=== PATIENT | male | born 1965 | race Caucasian/White ===

== ENCOUNTER 2017-08-07 04:50 | Inpatient (IN) | payer BC, OTHER ==
[2017-08-07] VITALS (9 sets, daily range): BP systolic 88–180; BP diastolic 64–136; PULSE 102–134; TEMP 36.3–37.4; O2SAT 90–94; Ht 165.1 cm; Wt 58.0 kg
[~2017-08-07] VITALS: Ht 165.1 cm; Wt 58.0 kg
[~2017-08-07 04:50] MED LIST: ASPEC81 PO; FLV1 PO; LOSA25TA18 PO; LPR25 PO; MULT-506 PO; PRLSR20 PO; SERT50TA PO; THM100 PO
--- NOTE | 2017-08-07 05:23 | EMERGENCY ROOM VISIT NOTE ---
History Report prepared by Francisco: Victor M Pemberton Under the Supervision of: Dr. Charity Blair D.O. First contact with patient: 04:53 Chief Complaint: ABDOMINAL PAIN Stated Complaint: ABDOMINAL PAIN History of Present Illness The patient is a 52 year old male who presents to the Emergency Room with concerns over worsening weakness and confusion that began yesterday, one day prior to arrival. Per the patient's she became concerned this morning when she realized that the patient was not able to walk, or get himself off of the toilet. He was confused this morning as well, in addition to experiencing a fall yesterday. The patient has a history of alcoholism and the patient's notes that he drinks at least a 12 pack of alcohol (beer) every day. He has had alcoholic seizures in the past, and the is concerned that one of these episodes could occur again. The patient vomited today, but the notes that the patient vomits every day at baseline. He has detoxed here in the hospital in the past, and has tried a rehabilitation program. He is willing to detox here again today. The patient is also complaining of pain in his abdomen and throat. Source of History: patient, spouse/significant other Onset: Yesterday Position: other (Global) Quality: other (Weakness ) Timing: worsening Associated Symptoms: + vomiting, + abdominal pain Review of Systems See HPI for pertinent positives & negatives. A total of 10 systems reviewed and were otherwise negative. Past Medical & Surgical Medical Problems: (1) Anxiety (2) Nunez esophagus (3) History of cardiomyopathy (4) HTN (hypertension) (5) Osteoarthritis Surgical Problems: (1) H/O endoscopy (2) [place] teeth removed Social History Problems: (1) Alcohol use Family History FH: cancer Social History Smoking Status: Current Every Day Smoker Alcohol Use: other Drug Use: none Marital Status: Housing Status: lives with family Occupation Status: employed Current/Historical Medications No Active Prescriptions or Reported Meds Allergies Coded Allergies: No Known Allergies (Unverified , 08/07/17) Physical Exam Vital Signs Date Time Temp Pulse Resp B/P (MAP) Pulse Ox O2 Delivery O2 Flow Rate FiO2 08/07/17 06:31 119 16 135/97 94 Room Air 08/07/17 05:30 119 18 155/104 93 Room Air 08/07/17 04:58 37.1 128 20 155/100 95 Room Air 08/07/17 04:54 133 Physical Exam General: Patient is slightly confused and smells of alcohol. HEENT: Head - normocephalic and atraumatic. Pupils are equal, round, and reactive to light. Scleral icterus, lateral nystagmus is present. Nose - moist nasal mucosa without discharge. Mouth - moist buccal mucosa. Oropharynx is nonerythematous and there is no tonsillar exudate or edema noted. Neck: Supple; no JVD, nuchal rigidity, cervical lymphadenopathy. Heart: Regular rate and rhythm. There is a normal S1 and S2 with no murmurs, clicks, or gallops appreciated. Lungs: Clear to auscultation bilaterally with no wheezes, rales, or rhonchi. Abdomen: Soft, with epigastric pain to palpation, nondistended, with good bowel sounds. There are no palpable pulsatile masses or hepatosplenomegaly. There is a contusion in the epigastrium. There is no guarding, rigidity, or rebound noted. Extremities: There is a contusion over the left arm. No evidence of cyanosis, clubbing, or edema. There are easily palpable peripheral pulses. Skin: dry and flaking. Petechiae over the right arm. Neuro:The patient is confused to place and time. Moving all four extremities. Muscle strength is 5/5 in all 4 extremities. Medical Decision & Procedures Laboratory Results 08/07/17 05:27 Red Blood Count 4.87, Mean Corpuscular Volume 91.8, Mean Corpuscular Hemoglobin 33.3, Mean Corpuscular Hemoglobin Concent 36.2, Mean Platelet Volume 11.2, Neutrophils (%) (Auto) 79.7, Lymphocytes (%) (Auto) 7.8, Monocytes (%) (Auto) 11.7, Eosinophils (%) (Auto) 0.0, Basophils (%) (Auto) 0.4, Neutrophils # (Auto ) 3.80, Lymphocytes # (Auto) 0.37, Monocytes # (Auto) 0.56, Eosinophils # (Auto ) 0.00, Basophils # (Auto) 0.02 08/07/17 04:38 Test 08/07/17 04:38 08/07/17 05:27 Anion Gap 25.0 mmol/L (3-11) Est Creatinine Clear Calc Drug Dose 84.7 ml/min Estimated GFR () 116.4 Estimated GFR (Non- 100.4 BUN/Creatinine Ratio 4.9 (10-20) Calcium Level 8.5 mg/dl (8.5-10.1) White Blood Count 4.77 K/uL (4.8-10.8) Red Blood Count 4.87 M/uL (4.7-6.1) Hemoglobin 16.2 g/dL (14.0-18.0) Hematocrit 44.7 % (42-52) Mean Corpuscular Volume 91.8 fL (80-100) Mean Corpuscular Hemoglobin 33.3 pg (25-34) Mean Corpuscular Hemoglobin Concent 36.2 g/dl (32-36) Platelet Count 51 K/uL (130-400) Mean Platelet Volume 11.2 fL (7.4-10.4) Neutrophils (%) (Auto) 79.7 % Lymphocytes (%) (Auto) 7.8 % Monocytes (%) (Auto) 11.7 % Eosinophils (%) (Auto) 0.0 % Basophils (%) (Auto) 0.4 % Neutrophils # (Auto) 3.80 K/uL (1.4-6.5) Lymphocytes # (Auto) 0.37 K/uL (1.2-3.4) Monocytes # (Auto) 0.56 K/uL (0.11-0.59) Eosinophils # (Auto) 0.00 K/uL (0-0.5) Basophils # (Auto) 0.02 K/uL (0-0.2) RDW Standard Deviation 40.9 fL (36.4-46.3) RDW Coefficient of Variation 12.2 % (11.5-14.5) Immature Granulocyte % (Auto) 0.4 % Immature Granulocyte # (Auto) 0.02 K/uL (0.00-0.02) Platelet Estimate DECREASED Prothrombin Time 12.2 SECONDS (9.0-12.0) Prothromb Time International Ratio 1.1 (0.9-1.1) Activated Partial Thromboplast Time 27.5 SECONDS (21.0-31.0) Partial Thromboplastin Ratio 1.1 Magnesium Level 1.8 mg/dl (1.8-2.4) Total Bilirubin 2.4 mg/dl (0.2-1) Direct Bilirubin 1.0 mg/dl (0-0.2) Aspartate Amino Transf (AST/SGOT) 236 U/L (15-37) Alanine Aminotransferase (ALT/SGPT) 153 U/L (12-78) Alkaline Phosphatase 108 U/L (45-117) Ammonia 39.0 umol/L (11-32) Troponin I < 0.015 ng/ml (0-0.045) Total Protein 7.4 gm/dl (6.4-8.2) Albumin 3.8 gm/dl (3.4-5.0) Lipase 478 U/L (73-393) Thyroid Stimulating Hormone (TSH) 1.260 uIu/ml (0.300-4.500) Ethyl Alcohol mg/dL 32.0 mg/dl (0-3) Laboratory results per my review. Medications Administered Medications (Trade) Dose Ordered Sig/Akanksha Route Start Time Stop Time Status Last Admin Dose Admin Multivitamins 10 ml/Thiamine HCl 100 mg/Folic Acid 1 mg/Sodium Chloride 1,011.2 ml @ 100 mls/ hr Q10H7M ONCE IV 08/07/17 06:30 08/07/17 16:36 08/07/17 06:45 100 MLS/HR Potassium Chloride 10 meq/ Prmx 100 ml @ 100 mls/hr Q1H IV 08/07/17 06:45 08/07/17 08:44 08/07/17 06:42 100 MLS/HR Procedure Medications Ordered: Multivitamins, Potassium Chloride. ECG Indication: weakness Rate (beats per minute): 133 Rhythm: sinus tachycardia Findings: no acute ischemic change, no ectopy, other (poor baseline ) ED Course 0505: Past medical records reviewed. The patient was evaluated in room A10. A complete history and physical exam was performed. An IV lock was initiated and labs are drones above. A twelve-lead EKG was obtained as described above. 0628: I reevaluated the patient at this time. I went over all of his laboratory results with him. He is still agreeable to stay for detox. 0630: Ordered a banana bag 0631: I discussed the case with Dr. Willis Steve Hospitalist at this time. He will evaluate the patient for further treatment. 0645: Ordered Potassium Chloride 100 mL @ 100 mL/hr IV. Medical Decision The patient is a 52 year old male who presents to the Emergency Department for worsening weakness. Differential diagnosis includes; alcoholic encephalopathy, dehydration, alcohol intoxication, and alcoholic gastritis. Laboratory studies were reviewed and showed; White count of 4.7, stable hemoglobin and hematocrit, platelet count of 51, normal coagulations, ammonia of 39, lipase of 478, TSH is normal, renal function is normal, glucose is 136, magnesium is 1.8, LFTs are all elevated, sodium is 123, potassium is 2.8, alcohol is 32. This is a 52-year-old male patient who is an alcoholic who presents to the emergency department with extreme weakness according to his . She explains that he has not left the house in the past 2 months. He drinks daily and vomits daily. He now is barely able to get around the house and was unable to get off the toilet last night. The patient has significant hyponatremia, hypokalemia, and thrombocytopenia. The patient is confused at times. He is currently receiving a banana bag and potassium. I've discussed the case with the [facility] Hospitalist and they will evaluate for further management. Medication Reconcilliation Current Medication List: was personally reviewed by me Consults Time Called: 06 Consulting Physician: Dr. Willis Agosto Returned Call: 0631 I discussed the case with Dr. Willis Agosto at this time. He will evaluate the patient for further treatment. Impression Primary Impression: Hyponatremia Additional Impressions: Thrombocytopenia Hypokalemia Alcohol abuse Scribe Attestation The scribe's documentation has been prepared under my direction and personally reviewed by me in its entirety. I confirm that the note above accurately reflects all work, treatment, procedures, and medical decision making performed by me. Departure Information Dispostion Being Evaluated By Hospitalist Prescriptions No Active Prescriptions or Reported Meds Referrals Abhinav Serrano D.O. (PCP) Patient Instructions My [facility] Problem Qualifiers
[2017-08-07 06:05] LABS: INR 1.1 (0.9-1.1); PARTIAL THROMBOPLASTIN RATIO 1.1; PROTHROMBIN TIME (PATIENT) 12.2 SECONDS (9.0-12.0)
[2017-08-07 06:16] LABS: HEMATOCRIT 44.7 % (42-52); MEAN CELL VOLUME 91.8 fL (80-100); MEAN CORPUSCULAR HEMOGLOBIN 33.3 pg (25-34); MEAN CORPUSCULAR HGB CONC 36.2 g/dl (32-36); MEAN PLATELET VOLUME 11.2 fL (7.4-10.4); PLATELET COUNT 51 K/uL (130-400); RED BLOOD COUNT 4.87 M/uL (4.7-6.1); WHITE BLOOD COUNT 4.77 K/uL (4.8-10.8)
[2017-08-07 06:17] LABS: BASO % 0.4 %; BASO ABS # 0.02 K/uL (0-0.2); COMPLETE YES; IG% 0.4 %; LYMPH % 7.8 %; LYMPH ABS # 0.37 K/uL (1.2-3.4); MONO % 11.7 %; NEUT % 79.7 %; PLT ESTIMATE DECREASED
[2017-08-07 06:21] LABS: BUN/CREATININE RATIO 4.9 (10-20); CALCIUM 8.5 mg/dl (8.5-10.1); CREATININE 0.86 mg/dl (0.60-1.40); POTASSIUM 2.8 mmol/L (3.5-5.1)
[2017-08-07] MEDS ORDERED: POTASSIUM CHLR 20 MEQ / WTR 20 MEQ in PREMIXED WATER 100 ML IV STA (06:25)
[2017-08-07 06:27] LABS: ALKALINE PHOSPHATASE 108 U/L (45-117); ALT/SGPT 153 U/L (12-78); AST/SGOT 236 U/L (15-37); MAGNESIUM 1.8 mg/dl (1.8-2.4)
[2017-08-07] MEDS ORDERED: MULTI-VITAMIN INFUSION INJ 10 ML, THIAMINE HCL INJ 100 MG, FoLIC ACID INJ 1 MG in SODIU... IV ONE (06:30)
[2017-08-07] MEDS: POTASSIUM CHLR 10MEQ / WTR IV SCH ×2 (06:42→08:23)
[2017-08-07] MEDS ORDERED: LORAZEPAM 2 MG/ML 1 ML VIAL IV PRN ×2 (06:45→19:30)
[2017-08-07] MEDS ORDERED: GABAPENTIN 600 MG TAB PO SCH (06:45)
[2017-08-07] MEDS ORDERED: POTASSIUM CHLORIDE 10 MEQ TABCR PO STA (06:49)
[2017-08-07] MEDS ORDERED: ONDANSETRON INJ 2 MG/ML 2 ML VIAL IV STA (06:54)
[2017-08-07] MEDS ORDERED: ONDANSETRON INJ 2 MG/ML 2 ML VIAL IV PRN (07:00)
--- NOTE | 2017-08-07 07:15 | History and Physical ---
History & Physical Date & Time of Service: Aug 07, 2017 at 06:40 Chief Complaint: Abdominal Pain Primary Care Physician: Abhinav Serrano D.O. History of Present Illness Source: patient, family, clinic records, hospital records This is a 52 year old male with a PMH of HTN, anxiety, Nunez's esophagus and a hx. of alcohol abuse, alcoholism, presents after being brought in by his for excessive alcohol use and weakness. Patient has been drinking at least a 12 pack daily as per . He has been more depressed lately due to the loss of his father. One day prior to arrival, he was very weak and needed help getting up from the toilet so he called his . A few hours later, he fell and needed help getting up. He has been slightly confused. As per , he stopped taking his blood pressure medications (stopped all of his meds). During exam, patient does not recall what brought him to the ER; he denies pain. +nauseous during exam and had a vomiting episode earlier in the ED. No fevers/chills/illness noted. Past Medical/Surgical History Medical Problems: (1) Anxiety Status: Chronic (2) Nunez esophagus Status: Chronic (3) History of cardiomyopathy Status: Chronic (4) HTN (hypertension) Status: Chronic (5) Osteoarthritis Status: Chronic Surgical Problems: (1) H/O endoscopy Status: Chronic (2) [place] teeth removed Status: Chronic Social History Problems: (1) Alcohol use Status: Chronic Family History FH: cancer Social History Smoking Status: Current Every Day Smoker Drug Use: none Marital Status: Housing status: lives with family Occupational Status: employed Immunizations History of Influenza Vaccine: Yes History of Tetanus Vaccine?: Unknown History of Pneumococcal: No History of Hepatitis B Vaccine: Unknown Multi-Drug Resistant Organisms History of MDRO: No Allergies Coded Allergies: No Known Allergies (Unverified , 08/07/17) Home Medications No Active Prescriptions or Reported Meds Review of Systems Difficult to obtain due to patient's mental status Denies any pain, denies chest pain/shortness of breath +nausea, +vomiting, +weakness Constitutional: + weakness Respiratory: No shortness of breath Cardiovascular: No chest pain Abdomen: + nausea, + vomiting, No pain, No diarrhea Physical Exam Vital Signs Date Time Temp Pulse Resp B/P (MAP) Pulse Ox O2 Delivery O2 Flow Rate FiO2 08/07/17 06:31 119 16 135/97 94 Room Air 08/07/17 05:30 119 18 155/104 93 Room Air 08/07/17 04:58 37.1 128 20 155/100 95 Room Air 08/07/17 04:54 133 General Appearance: + pertinent finding (+confused, lethargic, weak) Head: normocephalic, atraumatic Respiratory/Chest: chest non-tender, lungs clear, normal breath sounds, no respiratory distress, no accessory muscle use Cardiovascular: no edema, no gallop, no JVD, no murmur, normal peripheral pulses, + tachycardia Abdomen/GI: normal bowel sounds, soft, + tenderness (epigastric pain) Extremities/Musculoskelatal: no calf tenderness, normal capillary refill, no pedal edema Neurologic/Psych: + pertinent finding (+weakness, tremulousness, disoriented, confused, does not recall what happened) Diagnostics Laboratory Results Results Past 24 Hours Test 08/07/17 04:38 08/07/17 05:27 Range/Units Sodium Level 123 136-145 mmol/L Potassium Level 2.8 3.5-5.1 mmol/L Chloride Level 85 98-107 mmol/L Carbon Dioxide Level 13 21-32 mmol/L Anion Gap 25.0 3-11 mmol/L Blood Urea Nitrogen 4 7-18 mg/dl Creatinine 0.86 0.60-1.40 mg/dl Est Creatinine Clear Calc Drug Dose 84.7 ml/min Estimated GFR () 116.4 Estimated GFR (Non- 100.4 BUN/Creatinine Ratio 4.9 10-20 Random Glucose 136 70-99 mg/dl Calcium Level 8.5 8.5-10.1 mg/dl White Blood Count 4.77 4.8-10.8 K/uL Red Blood Count 4.87 4.7-6.1 M/uL Hemoglobin 16.2 14.0-18.0 g/dL Hematocrit 44.7 42-52 % Mean Corpuscular Volume 91.8 80-100 fL Mean Corpuscular Hemoglobin 33.3 25-34 pg Mean Corpuscular Hemoglobin Concent 36.2 32-36 g/dl Platelet Count 51 130-400 K/uL Mean Platelet Volume 11.2 7.4-10.4 fL Neutrophils (%) (Auto) 79.7 % Lymphocytes (%) (Auto) 7.8 % Monocytes (%) (Auto) 11.7 % Eosinophils (%) (Auto) 0.0 % Basophils (%) (Auto) 0.4 % Neutrophils # (Auto) 3.80 1.4-6.5 K/uL Lymphocytes # (Auto) 0.37 1.2-3.4 K/uL Monocytes # (Auto) 0.56 0.11-0.59 K/uL Eosinophils # (Auto) 0.00 0-0.5 K/uL Basophils # (Auto) 0.02 0-0.2 K/uL RDW Standard Deviation 40.9 36.4-46.3 fL RDW Coefficient of Variation 12.2 11.5-14.5 % Immature Granulocyte % (Auto) 0.4 % Immature Granulocyte # (Auto) 0.02 0.00-0.02 K/uL Platelet Estimate DECREASED Prothrombin Time 12.2 9.0-12.0 SECONDS Prothromb Time International Ratio 1.1 0.9-1.1 Activated Partial Thromboplast Time 27.5 21.0-31.0 SECONDS Partial Thromboplastin Ratio 1.1 Magnesium Level 1.8 1.8-2.4 mg/dl Total Bilirubin 2.4 0.2-1 mg/dl Direct Bilirubin 1.0 0-0.2 mg/dl Aspartate Amino Transf (AST/SGOT) 236 15-37 U/L Alanine Aminotransferase (ALT/SGPT) 153 12-78 U/L Alkaline Phosphatase 108 45-117 U/L Ammonia 39.0 11-32 umol/L Troponin I < 0.015 0-0.045 ng/ml Total Protein 7.4 6.4-8.2 gm/dl Albumin 3.8 3.4-5.0 gm/dl Lipase 478 73-393 U/L Thyroid Stimulating Hormone (TSH) 1.260 0.300-4.500 uIu/ml Ethyl Alcohol mg/dL 32.0 0-3 mg/dl EKG Sinus tachycardia Nonspecific ST abnormality Impression Assessment and Plan This is a 52 year old male with a PMH of alcoholism, alcohol abuse, hx. of withdrawal symptoms, including DTs and seizure, anxiety, HTN, Nunez's esophagus - presents with excessive alcohol use and subsequent weakness. Alcohol Abuse patient has a history of alcohol abuse/alcoholism drinks a 12 pack of beer daily at the minimum as per more depressed lately due to loss of his dad - drinking more than usual became extremely weak, unable to ambulate or care for himself noted to have severe hyponatremia, hypokalemia, elevated LFTs and lipase, elevated ammonia, thrombocytopenia started on a banana bag gabapentin protocol for EtOH withdrawal, Ativan PRN replace potassium, replace magnesium recheck PRP at noon to monitor sodium levels monitor for DTs - he has had seizures in the past - monitor in tele for now, but ICU transfer may be needed Hyponatremia giving IVFs monitor sodium levels Depression as per , he is not in a good place and more depressed due to loss of his father consulted mental health Nunez's Esophagus started PPI HTN not taking any medications monitor BP, if elevated, start a b-jabari DVT ppx due to thrombocytopenia, no medical DVT prophylaxis, SCDs FULL CODE alcohol rehab on discharge case management consulted VTE Prophylaxis VTE Risk Assessment Done? Y/N: Yes Risk Level: Moderate
[2017-08-07] MEDS ORDERED: LORAZEPAM 2 MG/ML 1 ML VIAL IV ONE (08:45)
[2017-08-07] MEDS ORDERED: MAGNESIUM SULFATE 1GM / D5W 1 GM in PREMIXED IN D5W 100 ML IV ONE (09:00)
[2017-08-07] MEDS: PANTOprazole SOD 40 MG TAB PO SCH (09:14)
[2017-08-07] MEDS: CHLORDIAZEPOXIDE 10 MG CAP PO SCH ×2 (09:20→22:21)
[2017-08-07 09:34] LABS: ESTIMATED AVERAGE GLUCOSE 123 mg/dl; HA1C FLAG Normal (Normal)
[2017-08-07] MEDS ORDERED: GABAPENTIN 1200MG LOADING DOSE PO SCH (10:00)
[2017-08-07] MEDS: POTASSIUM CHLR 10 MEQ / WTR 10 MEQ in PREMIXED WATER 100 ML IV SCH ×2 (10:05→10:30)
[2017-08-07] MEDS: METOPROLOL TARTRATE 1 MG/ML VIAL IV PRN ×2 (10:35→20:05)
--- NOTE | 2017-08-07 12:07 | Psychiatric History & Physical ---
History Date of Service Aug 07, 2017. Identifying Data Eddie Rudd is a 52-year-old male who lives in [place], has a history of alcohol dependence with multiple admissions for alcohol withdrawal seizures, and is admitted for detox. Psychiatry was consulted for depression. Chief Complaint "I don't know". History of Present Illness According to records, the patient was admitted this morning after he presented to the emergency room with weakness and confusion in the context of alcohol withdrawal. His was concerned as he became unable to walk or get himself off the toilet, and had a fall yesterday. He has been drinking at least a 12 pack of beer daily, and has a history of alcohol withdrawal seizures. His stated he has been vomiting daily, and has been drinking more and isolating at home for the past 2 months. His father unexpectedly in January 2017. Laboratory data revealed hyponatremia, hypokalemia, and thrombocytopenia. On my assessment, the patient is a very limited historian, often taking a long time to answer questions, or answering with unrelated information. He is sarcastic answers at times, stating that we are in [place] and that it is 1941. He does not answer questions about mood when they are asked, and says he was not aware a psychiatric consult was requested, and does not want us involved in his treatment. He denies thoughts of harming himself or anyone else. He was advised of our role in assisting with treatment if there is a comorbid mood disorder, and agreed to notify staff if he changes his mind and is agreeing to see someone. Past Psychiatric History Current OP Treatment: no current treatment Prior OP Treatment: no prior treatment Past Medical/Surgical History (1) Alcohol abuse (2) Nunez esophagus (3) HTN (hypertension) (4) Osteoarthritis Allergies Allergies: Coded Allergies: No Known Allergies (Unverified , 08/07/17) Home Medications No Active Prescriptions or Reported Meds Family History FH: cancer Alcohol Use Alcohol Use In Past 12 Months: Yes (drinks daily, at least a 12 pack of beer. History of DTs and withdrawal seizures.) Smoking Use Smoking Status: Current Every Day Smoker Personal History Lives in: [place] with Psychological Trauma History: Significant Loss (father January 2017) Review of Systems Patient refused to participate in ROS Examination Physical Examination A physical exam was performed [in the ER] [on the medical floor] prior to admission to the unit by [ ]. I accept that physical as correct/medical clearance for the inpatient physical exam. Vital Signs Vital Signs Past 12 Hours Date Time Temp Pulse Resp B/P (MAP) Pulse Ox O2 Delivery O2 Flow Rate FiO2 08/07/17 10:35 132 119/77 08/07/17 08:30 36.5 134 26 122/86 (98) 92 Room Air 08/07/17 07:31 159/113 08/07/17 07:20 121 23 95 08/07/17 07:01 161/117 08/07/17 07:00 36.3 126 28 180/136 94 Room Air 08/07/17 06:50 118 25 95 08/07/17 06:31 135/97 08/07/17 06:31 119 16 135/97 94 Room Air 08/07/17 06:20 125 26 95 08/07/17 06:01 157/113 08/07/17 05:50 119 25 93 08/07/17 05:31 155/104 08/07/17 05:30 119 18 155/104 93 Room Air 08/07/17 05:20 130 27 93 08/07/17 05:01 148/106 08/07/17 04:59 155/100 08/07/17 04:58 37.1 128 20 155/100 95 Room Air 08/07/17 04:54 133 08/07/17 04:52 173/124 Laboratory Results Last 24 Hours Test 08/07/17 04:38 08/07/17 05:27 08/07/17 11:50 Sodium Level 123 mmol/L Potassium Level 2.8 mmol/L Chloride Level 85 mmol/L Carbon Dioxide Level 13 mmol/L Anion Gap 25.0 mmol/L Blood Urea Nitrogen 4 mg/dl Creatinine 0.86 mg/dl Est Creatinine Clear Calc Drug Dose 84.7 ml/min Estimated GFR () 116.4 Estimated GFR (Non- 100.4 BUN/Creatinine Ratio 4.9 Random Glucose 136 mg/dl Calcium Level 8.5 mg/dl White Blood Count 4.77 K/uL Red Blood Count 4.87 M/uL Hemoglobin 16.2 g/dL Hematocrit 44.7 % Mean Corpuscular Volume 91.8 fL Mean Corpuscular Hemoglobin 33.3 pg Mean Corpuscular Hemoglobin Concent 36.2 g/dl Platelet Count 51 K/uL Mean Platelet Volume 11.2 fL Neutrophils (%) (Auto) 79.7 % Lymphocytes (%) (Auto) 7.8 % Monocytes (%) (Auto) 11.7 % Eosinophils (%) (Auto) 0.0 % Basophils (%) (Auto) 0.4 % Neutrophils # (Auto) 3.80 K/uL Lymphocytes # (Auto) 0.37 K/uL Monocytes # (Auto) 0.56 K/uL Eosinophils # (Auto) 0.00 K/uL Basophils # (Auto) 0.02 K/uL RDW Standard Deviation 40.9 fL RDW Coefficient of Variation 12.2 % Immature Granulocyte % (Auto) 0.4 % Immature Granulocyte # (Auto) 0.02 K/uL Platelet Estimate DECREASED Prothrombin Time 12.2 SECONDS Prothromb Time International Ratio 1.1 Activated Partial Thromboplast Time 27.5 SECONDS Partial Thromboplastin Ratio 1.1 Estimated Average Glucose 123 mg/dl Hemoglobin A1c 5.9 % Magnesium Level 1.8 mg/dl Total Bilirubin 2.4 mg/dl Direct Bilirubin 1.0 mg/dl Aspartate Amino Transf (AST/SGOT) 236 U/L Alanine Aminotransferase (ALT/SGPT) 153 U/L Alkaline Phosphatase 108 U/L Ammonia 39.0 umol/L Troponin I < 0.015 ng/ml Total Protein 7.4 gm/dl Albumin 3.8 gm/dl Lipase 478 U/L Thyroid Stimulating Hormone (TSH) 1.260 uIu/ml Ethyl Alcohol mg/dL 32.0 mg/dl Mental Examination Appearance: other (ill appearing, tremulous) Eye contact is: poor Motor behavior is: tremor Speech: other (minimal, delayed) Mood is: other (refused to answer) Suicidal thought are: denied Homicidal thoughts are: denied Impression / Recommendations Recommendations (1) Alcohol abuse Patient is in delirium tremens, with confusion, tremulousness, and autonomic instability. Management per primary team. He is at very high risk for withdrawal seizures given his history and heavy alcohol use. He would benefit from inpatient rehabilitation after he has completed detox here. This would give him the best chance of remaining abstinent. He is uncooperative with assessment regarding mood, and a primary mood disorder cannot be diagnosed in the context of severe alcohol withdrawal. He should be reassessed as an outpatient if he so desires after he is sobriety. CPT Code Initial Hospital Care: 46440
[2017-08-07] MEDS ORDERED: NURSING VERBAL MED ORDER ONE (12:15)
[2017-08-07] MEDS ORDERED: POTASSIUM CHLORIDE 20 MEQ TABCR PO ONE (12:15)
[2017-08-07 13:03] LABS: BUN/CREATININE RATIO 11.8 (10-20); CALCIUM 8.3 mg/dl (8.5-10.1); CREATININE 0.63 mg/dl (0.60-1.40); POTASSIUM 4.2 mmol/L (3.5-5.1)
[2017-08-07] MEDS: GABAPENTIN 600MG Q6H DOSE PO SCH ×2 (16:05→22:00)
--- NOTE | 2017-08-07 16:20 | Progress Note ---
Medicine Progress Note Date & Time of Visit: Aug 07, 2017 at 15:50. Subjective Pt was seen and examined Lying in bed with no distress One to one sitter He was very agitated this morning Now sleeping, trying to wake him up he went back to sleep Objective Last 8 Hrs Date Time Temp Pulse Resp B/P (MAP) Pulse Ox O2 Delivery O2 Flow Rate FiO2 08/07/17 15:33 37.1 106 18 114/72 (86) 92 Room Air 08/07/17 12:23 93 Room Air 08/07/17 12:19 36.8 121 20 131/69 (89) 93 08/07/17 10:35 132 119/77 08/07/17 08:30 36.5 134 26 122/86 (98) 92 Room Air Physical Exam: General- sleeping Head- atraumatic Eyes- PERRL ENT- oropharynx clear Neck- supple, no JVD Lungs- clear to auscultation Heart- regular rhythm; no murmur Abdomen- normal bowel sounds, soft Extremities-no calf tenderness Neuro-Sleeping, moving all 4 extremities mild pain stimuli Skin- warm & dry Laboratory Results: Last 24 Hours Test 08/07/17 04:38 08/07/17 05:27 08/07/17 11:50 Sodium Level 123 mmol/L 121 mmol/L Potassium Level 2.8 mmol/L 4.2 mmol/L Chloride Level 85 mmol/L 88 mmol/L Carbon Dioxide Level 13 mmol/L 22 mmol/L Anion Gap 25.0 mmol/L 12.0 mmol/L Blood Urea Nitrogen 4 mg/dl 7 mg/dl Creatinine 0.86 mg/dl 0.63 mg/dl Est Creatinine Clear Calc Drug Dose 84.7 ml/min 115.6 ml/min Estimated GFR () 116.4 132.2 Estimated GFR (Non- 100.4 114.1 BUN/Creatinine Ratio 4.9 11.8 Random Glucose 136 mg/dl 137 mg/dl Calcium Level 8.5 mg/dl 8.3 mg/dl White Blood Count 4.77 K/uL Red Blood Count 4.87 M/uL Hemoglobin 16.2 g/dL Hematocrit 44.7 % Mean Corpuscular Volume 91.8 fL Mean Corpuscular Hemoglobin 33.3 pg Mean Corpuscular Hemoglobin Concent 36.2 g/dl Platelet Count 51 K/uL Mean Platelet Volume 11.2 fL Neutrophils (%) (Auto) 79.7 % Lymphocytes (%) (Auto) 7.8 % Monocytes (%) (Auto) 11.7 % Eosinophils (%) (Auto) 0.0 % Basophils (%) (Auto) 0.4 % Neutrophils # (Auto) 3.80 K/uL Lymphocytes # (Auto) 0.37 K/uL Monocytes # (Auto) 0.56 K/uL Eosinophils # (Auto) 0.00 K/uL Basophils # (Auto) 0.02 K/uL RDW Standard Deviation 40.9 fL RDW Coefficient of Variation 12.2 % Immature Granulocyte % (Auto) 0.4 % Immature Granulocyte # (Auto) 0.02 K/uL Platelet Estimate DECREASED Prothrombin Time 12.2 SECONDS Prothromb Time International Ratio 1.1 Activated Partial Thromboplast Time 27.5 SECONDS Partial Thromboplastin Ratio 1.1 Estimated Average Glucose 123 mg/dl Hemoglobin A1c 5.9 % Magnesium Level 1.8 mg/dl Total Bilirubin 2.4 mg/dl Direct Bilirubin 1.0 mg/dl Aspartate Amino Transf (AST/SGOT) 236 U/L Alanine Aminotransferase (ALT/SGPT) 153 U/L Alkaline Phosphatase 108 U/L Ammonia 39.0 umol/L Troponin I < 0.015 ng/ml Total Protein 7.4 gm/dl Albumin 3.8 gm/dl Lipase 478 U/L Thyroid Stimulating Hormone (TSH) 1.260 uIu/ml Ethyl Alcohol mg/dL 32.0 mg/dl Assessment & Plan Alcohol Withdraw Has been drinking 12 pack of beer daily Gabapentin protocol for EtOH withdrawal, Ativan PRN Continue banana bag One to one observation Starting on Librium 10mg BID Continue monitor closely for DT No seizure activity Consider inpatient alcohol rehab Elevated Liver Enzymes Mostly related to alcohol abuse AST 256, ALT 153 Continue IVF Monitor Liver enzymes If worsening, will get an U/S of the liver Hyponatremia Na 121 Mostly related to alcohol and poor intake Continue IVF Will check BMP later Continue monitor BMP Generalized Weakness fall precaution PT/OT Depression Psych consulted was not able to cooperate Once sober, will reassess if he wants to see psych Nunez's Esophagus Continue PPI Electrolytes imbalance Mg and K replaced Continue monitor HTN BP stable Tachycardia Due to alcohol withdrawn Starting on low dose of lopressor for HR > 120 prn Continue monitor in telemetry DVT ppx due to thrombocytopenia, no medical DVT prophylaxis, SCDs FULL CODE Disposition Consider alcohol rehab on discharge Consultants: psych Current Inpatient Medications: Current Inpatient Medications Medications (Trade) Dose Ordered Sig/Akanksha Route Start Time Stop Time Status Last Admin Dose Admin Multivitamins 10 ml/Thiamine HCl 100 mg/Folic Acid 1 mg/Sodium Chloride 1,011.2 ml @ 100 mls/ hr Q10H7M ONCE IV 08/07/17 06:30 08/07/17 16:36 08/07/17 06:45 100 MLS/HR Sodium Chloride 1,000 ml @ 100 mls/hr Q10H IV 08/07/17 16:36 09/06/17 16:35 Multivitamins 10 ml/Thiamine HCl 100 mg/Folic Acid 1 mg/Sodium Chloride 1,011.2 ml @ 500 mls/ hr DAILY@0900 IV 08/08/17 09:00 09/07/17 08:59 Ondansetron HCl (Zofran Inj) 4 mg Q6H PRN IV 08/07/17 07:00 09/06/17 06:59 Pantoprazole Sodium (Protonix Tab) 40 mg QAM PO 08/07/17 09:00 09/06/17 08:59 08/07/17 09:14 40 MG Influenza Virus Vaccine Quadrival (Flucelvax Quad Vaccine) 0.5 ml ONCE ONCE IM. 08/08/17 08:00 08/08/17 08:01 Gabapentin (Neurontin Tab) 600 mg Q6H PO 08/07/17 16:00 08/07/17 22:01 Gabapentin (Neurontin Tab) 600 mg Q8H PO 08/08/17 06:00 08/08/17 22:01 Gabapentin (Neurontin Tab) 600 mg Q12H PO 08/09/17 10:00 08/09/17 22:01 Gabapentin (Neurontin Tab) 600 mg Q24H PO 08/10/17 22:00 08/10/17 22:01 Chlordiazepoxide (Librium Cap) 10 mg BID PO 08/07/17 09:00 09/06/17 08:59 08/07/17 09:20 10 MG Metoprolol Tartrate (Lopressor Iv) 2.5 mg Q6 PRN IV 08/07/17 09:30 09/06/17 09:29 08/07/17 10:35 2.5 MG
[2017-08-07] MEDS: SODIUM CHLORIDE 0.9% 1000ML 1,000 ML IV SCH (16:36)
--- NOTE | 2017-08-07 17:30 | ECHOCARDIOGRAM REPORT ---
*NOTICE TO RECEIVING LIBERTARIAN AGENCY This information is strictly Confidential and protected under [place] law. [place] law prohibits you from making any further disclosure of this information unless further disclosure is expressly permitted by the written consent of the person to whom it pertains or is authorized by law. A general authorization for the release of medical or other information is not sufficient for this purpose. Hospital accepts no responsibility if the information is made available to any other person, INCLUDING THE PATIENT. Interpretation Summary * The study was technically limited. * The study was technically difficult. * Sinus tachycardia with rate of 130 bpm was present during the echocardiogram. * -- Conclusions -- * The left ventricular systolic function is grossly normal on technically limited evaluation. * Regional wall motion cannot be assessed due to the tachycardia and technically inadequate images. * There is no significant valvular disease. Procedure Details * A complete two-dimensional transthoracic echocardiogram was performed (2D, M-mode, Doppler and color flow Doppler). * A contrast injection of Definity was performed to improve assessment of LV function. * Contrast was injected into an intravenous site in the left arm. * One vial of Definity ultrasound contrast was diluted in normal saline to a total volume of 10 ml. A total of '1' ml of solution was administered during imaging. * Lot # [id number] of Definity utilized for procedure. * Expiration date 1DEC18. * The attending nurse who injected the contrast agent was Lon Oliveira RN. Left Ventricle * The left ventricle is normal in size. * There is normal left ventricular wall thickness. * The left ventricular systolic function is grossly normal on technically limited evaluation. * Regional wall motion cannot be assessed due to the tachycardia and technically inadequate images. Right Ventricle * The right ventricle is grossly normal size. * The right ventricular systolic function is normal. Atria * The left atrial size is normal. * Right atrial size is normal. * There is no evidence of atrial septal defect, but resolution does not allow assessment for a patent foramen ovale. Mitral Valve * The mitral valve is normal. * There is no mitral valve stenosis. * There is mild mitral regurgitation. Tricuspid Valve * The tricuspid valve is normal. * There is no tricuspid stenosis. * Significant tricuspid regurgitation is absent. Aortic Valve * The aortic valve is trileaflet. * Aortic stenosis is absent. * There is no significant aortic regurgitation. Pulmonic Valve * The pulmonary valve is not well seen, but the Doppler examination is normal without significant regurgitation or stenosis. Great Vessels * The aortic root and proximal ascending aorta are normal sized. Pericardium/Pleural * There is no pericardial effusion. * There is an echodenisity in the pericardial space consistent with pericardial fat. Great Vessels * Normal inferior vena cava diameter and respiratory variation suggests normal central venous pressure. Left Ventricular Diastolic Function * Grade I diastolic dysfunction, (abnormal relaxation pattern). MMode 2D Measurements and Calculations IVSd 0.82 cm IVSs 1.2 cm LVIDd 3.1 cm LVIDs 2.4 cm LVPWd 0.85 cm LVPWs 1.3 cm IVS/LVPW 0.97 FS 22.7 % EDV(Teich) 37.2 ml ESV(Teich) 19.7 ml EF(Teich) 47.1 % EDV(cubed) 29.1 ml ESV(cubed) 13.4 ml EF(cubed) 53.8 % % IVS thick 43.6 % % LVPW thick 53.5 % LV mass(C)d 65.3 grams LV mass(C)dI 39.8 grams/m\S\2 LV mass(C)s 84.8 grams LV mass(C)sI 51.7 grams/m\S\2 SV(Teich) 17.5 ml SI(Teich) 10.7 ml/m\S\2 SV(cubed) 15.7 ml SI(cubed) 9.5 ml/m\S\2 Ao root diam 3.5 cm Ao root area 9.6 cm\S\2 ACS 1.3 cm LA dimension 2.7 cm asc Aorta Diam 3.0 cm LA/Ao 0.78 EDV(MOD-sp4) 116.3 ml ESV(MOD-sp4) 49.1 ml EF(MOD-sp4) 57.8 % EDV(MOD-sp2) 73.1 ml ESV(MOD-sp2) 38.0 ml EF(MOD-sp2) 48.1 % SV(MOD-sp4) 67.3 ml SI(MOD-sp4) 41.0 ml/m\S\2 SV(MOD-sp2) 35.1 ml SI(MOD-sp2) 21.4 ml/m\S\2 Doppler Measurements and Calculations MV E max darshan 113.7 cm/sec MV A max darshan 71.9 cm/sec MV E/A 1.6 MV P1/2t max darshan 124.0 cm/sec MV P1/2t 40.2 msec MVA(P1/2t) 5.5 cm\S\2 MV dec slope 903.9 cm/sec\S\2 MV dec time 0.09 sec PA V2 max 95.3 cm/sec PA max PG 3.7 mmHg
[2017-08-07] MEDS: METOPROLOL SUCC 25MG EXT REL TAB PO SCH (19:44)
[2017-08-07 19:49] LABS: BUN/CREATININE RATIO 16.5 (10-20); CALCIUM 7.6 mg/dl (8.5-10.1); CREATININE 0.65 mg/dl (0.60-1.40); POTASSIUM 4.1 mmol/L (3.5-5.1)
[2017-08-07] MEDS ORDERED: LORAZEPAM INJ 2 MG in SYRINGE 1 ML IV STA (19:57)
[2017-08-07] MEDS ORDERED: MAGNESIUM SULFATE 1GM / D5W 1 GM in PREMIXED IN D5W 100 ML IV STA (19:57)
[2017-08-07 21:37] LABS: MANUAL MICROSCOPIC REQUIRED? YES; URINE APPEARANCE CLEAR (CLEAR); URINE COLOR YELLOW; URINE NITRITE NEG (NEG); UROBILINOGEN NEG (NEG)
[2017-08-07 21:38] LABS: REVIEW REQ? NO; URINE BILIRUBIN 1+ (NEG)
[2017-08-07 21:48] LABS: URINE BACTERIA NEG (NEG); URINE MUCUS PRESENT (NONE PRSENT); URINE RBC 0-4 /hpf (0-4)
[2017-08-08] VITALS (10 sets, daily range): BP systolic 92–151; BP diastolic 62–106; PULSE 99–134; TEMP 36.7–37.5; O2SAT 92–97
[2017-08-08] MEDS: SODIUM CHLORIDE 0.9% 1000ML 1,000 ML IV SCH ×2 (03:07→07:46)
[2017-08-08] MEDS: METOPROLOL TARTRATE 1 MG/ML VIAL IV PRN ×2 (03:07→07:46)
[2017-08-08] MEDS: GABAPENTIN 600MG Q8H DOSE PO SCH ×4 (05:58→20:38)
[2017-08-08 06:03] LABS: HEMATOCRIT 40.8 % (42-52); MEAN CELL VOLUME 94.9 fL (80-100); MEAN CORPUSCULAR HEMOGLOBIN 33.3 pg (25-34); WHITE BLOOD COUNT 5.57 K/uL (4.8-10.8)
[2017-08-08 06:07] LABS: MEAN PLATELET VOLUME 11.1 fL (7.4-10.4); PLATELET COUNT 43 K/uL (130-400)
[2017-08-08 06:38] LABS: BUN/CREATININE RATIO 16.2 (10-20); CALCIUM 7.5 mg/dl (8.5-10.1); CREATININE 0.67 mg/dl (0.60-1.40); MAGNESIUM 2.3 mg/dl (1.8-2.4)
[2017-08-08 06:41] LABS: PHOSPHORUS 2.5 mg/dl (2.5-4.9)
[2017-08-08] MEDS: CHLORDIAZEPOXIDE 10 MG CAP PO SCH ×2 (07:44→20:38)
[2017-08-08] MEDS: MULTI-VITAMIN INFUSION INJ 10 ML, THIAMINE HCL INJ 100 MG, FoLIC ACID INJ 1 MG in SODIU... IV SCH (07:44)
[2017-08-08] MEDS: METOPROLOL SUCC 25MG EXT REL TAB PO SCH (07:45)
[2017-08-08] MEDS: PANTOprazole SOD 40 MG TAB PO SCH (07:45)
[2017-08-08] MEDS ORDERED: INFLUENZA VIRUS QUAD VACCINE 0.5 ML SYR IM. ONE (08:00)
[2017-08-08] MEDS ORDERED: INFLUENZA ADMINISTRATION CHARGE ONE (08:00)
--- NOTE | 2017-08-08 10:14 | Clinical Documentation Query ---
CLINICAL DOCUMENTATION QUERY 52 year old male who presents to the Emergency Room with concerns over worsening weakness and confusion. In your clinical opinion is this patient being managed for: ( ) Metabolic & alcoholic encephalopathy evidenced by confusion, hyponatremia, hypokalemia, hyperammonemia, and elevated LVT's. ( ) Not Agree ( ) Other explanation of clinical findings (Please Explain) ( ) Unable to determine (Please Define) ( ) Need to Discuss The medical record reflects the following clinical findings, treatment, and risk factors. Clinical Indicators: confusion, Na 121, K+ 2.8, MG 1.8, Ammonia 39.0, Total bili 2.4, Direct bili 1.0, AST 236, ALT 153, serum ETOH 32.0 Treatment: nursing 1:1, librium, ativan, IV Banana bag, IV K+, IV NSS, IV Mg. Risk Factors: Age, alcoholism, electrolyte imbalances, +ETOH, and elevated ammonia level. Please clarify and document your clinical opinion in the progress notes and discharge summary. Terms such as "probable", "suspected", "likely", "questionable", "possible", or "still to be ruled out" are acceptable. IF IN AGREEMENT, YOU MUST DOCUMENT ABOVE DIAGNOSTIC STATEMENT IN DAILY PROGRESS NOTES AND DISCHARGE SUMMARY. This document is not part of the patient's record. Thank You, Harinder Duke, MELISSA [phone]
[2017-08-08] MEDS ORDERED: NURSING VERBAL MED ORDER ONE (15:50)
[2017-08-08] MEDS ORDERED: LORAZEPAM 2 MG/ML 1 ML VIAL ONE (15:51)
--- NOTE | 2017-08-08 17:59 | Progress Note ---
Medicine Progress Note Date & Time of Visit: Aug 08, 2017 at 13:50. Subjective Pt was seen and examined Lying in bed with no distress He just finished eating He was drowsy, but able to follow command He said that he feels tired Denies any chest pain and SOB Objective Last 8 Hrs Date Time Temp Pulse Resp B/P (MAP) Pulse Ox O2 Delivery O2 Flow Rate FiO2 08/08/17 16:00 37.4 110 20 128/86 (100) 93 Nasal Cannula 1.5 08/08/17 12:00 96 Room Air 2.0 08/08/17 11:00 37.2 118 18 129/84 (99) 97 Physical Exam: General- sleeping Head- atraumatic Eyes- PERRL, +nystagmus ENT- oropharynx clear Neck- supple, no JVD Lungs- clear to auscultation Heart- tachycardia Abdomen- normal bowel sounds, soft Extremities-no calf tenderness, +tremors Neuro-Sleeping, moving all 4 extremities mild pain stimuli Skin- warm & dry Laboratory Results: Last 24 Hours Test 08/07/17 19:07 08/07/17 19:50 08/08/17 05:35 Sodium Level 127 mmol/L 129 mmol/L Potassium Level 4.1 mmol/L 4.0 mmol/L Chloride Level 93 mmol/L 95 mmol/L Carbon Dioxide Level 25 mmol/L 28 mmol/L Anion Gap 9.0 mmol/L 6.0 mmol/L Blood Urea Nitrogen 11 mg/dl 11 mg/dl Creatinine 0.65 mg/dl 0.67 mg/dl Est Creatinine Clear Calc Drug Dose 112.0 ml/min 113.5 ml/min Estimated GFR () 130.6 128.9 Estimated GFR (Non- 112.6 111.3 BUN/Creatinine Ratio 16.5 16.2 Random Glucose 97 mg/dl 82 mg/dl Calcium Level 7.6 mg/dl 7.5 mg/dl Urine Color YELLOW Urine Appearance CLEAR Urine pH 6.0 Urine Specific [place] 1.010 Urine Protein TRACE Urine Glucose (UA) NEG Urine Ketones 1+ Urine Occult Blood 1+ Urine Nitrite NEG Urine Bilirubin 1+ Urine Urobilinogen NEG Urine Leukocyte Esterase NEG Urine RBC 0-4 /hpf Urine WBC 1-5 /hpf Urine Epithelial Cells 5-10 /lpf Urine Bacteria NEG Urine Hyaline Casts 1-5 /lpf Urine Mucus PRESENT White Blood Count 5.57 K/uL Red Blood Count 4.30 M/uL Hemoglobin 14.3 g/dL Hematocrit 40.8 % Mean Corpuscular Volume 94.9 fL Mean Corpuscular Hemoglobin 33.3 pg Mean Corpuscular Hemoglobin Concent 35.0 g/dl RDW Standard Deviation 42.1 fL RDW Coefficient of Variation 12.2 % Platelet Count 43 K/uL Mean Platelet Volume 11.1 fL Phosphorus Level 2.5 mg/dl Magnesium Level 2.3 mg/dl Total Bilirubin 2.1 mg/dl Aspartate Amino Transf (AST/SGOT) 130 U/L Alanine Aminotransferase (ALT/SGPT) 101 U/L Alkaline Phosphatase 78 U/L Total Protein 5.8 gm/dl Albumin 2.9 gm/dl Globulin 2.9 gm/dl Albumin/Globulin Ratio 1.0 Lipase 602 U/L Assessment & Plan Alcohol Withdraw Has been drinking 12 pack of beer daily Gabapentin protocol for EtOH withdrawal, Ativan PRN Continue banana bag One to one observation Continue Librium 10mg BID Continue monitor closely for DT No seizure activity Consider inpatient alcohol rehab Continue monitor in tele Elevated Liver Enzymes Mostly related to alcohol abuse AST 256, ALT 153 pn admission Liver enzymes trending down Continue IVF Monitor Liver enzymes Stable Hyponatremia Na 121 on admission Na 129 today Mostly related to alcohol and poor intake Continue IVF Continue monitor BMP Generalized Weakness fall precaution PT/OT Depression Psych consulted was not able to cooperate Once sober, will reassess if he wants to see psych Nunez's Esophagus Continue PPI Electrolytes imbalance stable Continue monitor HTN BP stable Tachycardia Due to alcohol withdrawn Continue low dose of lopressor for HR > 120 prn Resumed his metoprolol 25 mg daily Continue monitor in telemetry Echo showed * The left ventricular systolic function is grossly normal on technically limited evaluation. * Regional wall motion cannot be assessed due to the tachycardia and technically inadequate images. * There is no significant valvular disease. DVT ppx due to thrombocytopenia, no medical DVT prophylaxis, SCDs FULL CODE Disposition Consider alcohol rehab on discharge Consultants: psych Current Inpatient Medications: Current Inpatient Medications Medications (Trade) Dose Ordered Sig/Akanksha Route Start Time Stop Time Status Last Admin Dose Admin Sodium Chloride 1,000 ml @ 100 mls/hr Q10H IV 08/07/17 16:36 09/06/17 16:35 08/08/17 07:46 100 MLS/HR Multivitamins 10 ml/Thiamine HCl 100 mg/Folic Acid 1 mg/Sodium Chloride 1,011.2 ml @ 500 mls/ hr DAILY@0900 IV 08/08/17 09:00 09/07/17 08:59 08/08/17 07:44 500 MLS/HR Ondansetron HCl (Zofran Inj) 4 mg Q6H PRN IV 08/07/17 07:00 09/06/17 06:59 Pantoprazole Sodium (Protonix Tab) 40 mg QAM PO 08/07/17 09:00 09/06/17 08:59 08/08/17 07:45 40 MG Gabapentin (Neurontin Tab) 600 mg Q8H PO 08/08/17 06:00 08/08/17 22:01 08/08/17 07:44 600 MG Gabapentin (Neurontin Tab) 600 mg Q12H PO 08/09/17 10:00 08/09/17 22:01 Gabapentin (Neurontin Tab) 600 mg Q24H PO 08/10/17 22:00 08/10/17 22:01 Chlordiazepoxide (Librium Cap) 10 mg BID PO 08/07/17 09:00 09/06/17 08:59 08/08/17 07:44 10 MG Metoprolol Tartrate (Lopressor Iv) 2.5 mg Q6 PRN IV 08/07/17 09:30 09/06/17 09:29 08/08/17 07:46 2.5 MG Metoprolol Succinate (Toprol Xl Tab) 25 mg QAM PO 08/07/17 20:00 09/06/17 19:59 08/08/17 07:45 25 MG
[2017-08-08] MEDS ORDERED: LORAZEPAM 2 MG/ML 1 ML VIAL IV PRN (19:45)
[2017-08-09] VITALS (16 sets, daily range): BP systolic 108–159; BP diastolic 68–125; PULSE 100–128; TEMP 36.4–38.5; O2SAT 89–99
[2017-08-09] MEDS ORDERED: LORAZEPAM 2 MG/ML 1 ML VIAL IV STA (01:54)
[2017-08-09] MEDS: SODIUM CHLORIDE 0.9% 1000ML 1,000 ML IV SCH ×4 (02:18→20:08)
[2017-08-09] MEDS ORDERED: CLONIDINE HCL 0.1 MG TAB PO ONE (05:00)
[2017-08-09 05:52] LABS: HEMATOCRIT 41.2 % (42-52); MEAN CELL VOLUME 97.6 fL (80-100); MEAN CORPUSCULAR HEMOGLOBIN 33.4 pg (25-34); MEAN CORPUSCULAR HGB CONC 34.2 g/dl (32-36); RED BLOOD COUNT 4.22 M/uL (4.7-6.1); WHITE BLOOD COUNT 4.38 K/uL (4.8-10.8)
[2017-08-09 06:31] LABS: MEAN PLATELET VOLUME 11.3 fL (7.4-10.4); PLATELET COUNT 46 K/uL (130-400)
[2017-08-09 06:32] LABS: PLT ESTIMATE DECREASED
[2017-08-09 06:47] LABS: ALB/GLOB RATIO 0.9 (0.9-2); ALKALINE PHOSPHATASE 76 U/L (45-117); ALT/SGPT 106 U/L (12-78); BLOOD UREA NITROGEN 6 mg/dl (7-18); BUN/CREATININE RATIO 11.8 (10-20); CALCIUM 7.6 mg/dl (8.5-10.1); CARBON DIOXIDE 29 mmol/L (21-32); CHLORIDE 98 mmol/L (98-107); CREATININE 0.47 mg/dl (0.60-1.40); GLUCOSE 83 mg/dl (70-99); SODIUM 135 mmol/L (136-145)
[2017-08-09] MEDS ORDERED: LORAZEPAM 2 MG/ML 1 ML VIAL ONE (07:37)
[2017-08-09] MEDS: CHLORDIAZEPOXIDE 10 MG CAP PO SCH ×2 (07:44→20:06)
[2017-08-09] MEDS: PANTOprazole SOD 40 MG TAB PO SCH (07:45)
[2017-08-09] MEDS: GABAPENTIN 600MG Q12H DOSE PO SCH ×2 (07:45→20:06)
[2017-08-09] MEDS: METOPROLOL SUCC 25MG EXT REL TAB PO SCH (07:45)
[2017-08-09] MEDS: MULTI-VITAMIN INFUSION INJ 10 ML, THIAMINE HCL INJ 100 MG, FoLIC ACID INJ 1 MG in SODIU... IV SCH (08:42)
[2017-08-09] MEDS: LORAZEPAM 2 MG/ML 1 ML VIAL IV PRN ×3 (11:08→19:31)
--- NOTE | 2017-08-09 17:10 | Progress Note ---
Medicine Progress Note Date & Time of Visit: Aug 09, 2017 at 11:05. Subjective Pt was seen and examined Lying in bed with no distress Pt is slightly more awake today He is able to follow command he said that he feels tired denies any chest pain, palpitation, dizziness and SOB Objective Last 8 Hrs Date Time Temp Pulse Resp B/P (MAP) Pulse Ox O2 Delivery O2 Flow Rate FiO2 08/09/17 15:01 36.4 115 20 144/101 (115) 93 Nasal Cannula 2.0 08/09/17 12:00 96 Room Air 2.0 08/09/17 11:24 36.8 104 18 128/68 (88) 99 Physical Exam: General- sleeping Head- atraumatic Eyes- PERRL, EOMI ENT- oropharynx clear Neck- supple, no JVD Lungs- clear to auscultation Heart- tachycardia Abdomen- normal bowel sounds, soft Extremities-no calf tenderness, +tremors Neuro-Sleeping, moving all 4 extremities mild pain stimuli Skin- warm & dry Laboratory Results: Last 24 Hours Test 08/09/17 05:26 White Blood Count 4.38 K/uL Red Blood Count 4.22 M/uL Hemoglobin 14.1 g/dL Hematocrit 41.2 % Mean Corpuscular Volume 97.6 fL Mean Corpuscular Hemoglobin 33.4 pg Mean Corpuscular Hemoglobin Concent 34.2 g/dl RDW Standard Deviation 43.5 fL RDW Coefficient of Variation 12.3 % Platelet Count 46 K/uL Mean Platelet Volume 11.3 fL Platelet Estimate DECREASED Sodium Level 135 mmol/L Potassium Level mmol/L Chloride Level 98 mmol/L Carbon Dioxide Level 29 mmol/L Anion Gap 8.0 mmol/L Blood Urea Nitrogen 6 mg/dl Creatinine 0.47 mg/dl Est Creatinine Clear Calc Drug Dose 161.7 ml/min Estimated GFR () 149.2 Estimated GFR (Non- 128.7 BUN/Creatinine Ratio 11.8 Random Glucose 83 mg/dl Calcium Level 7.6 mg/dl Total Bilirubin 1.6 mg/dl Aspartate Amino Transf (AST/SGOT) U/L Alanine Aminotransferase (ALT/SGPT) 106 U/L Alkaline Phosphatase 76 U/L Total Protein 6.0 gm/dl Albumin 2.8 gm/dl Globulin 3.2 gm/dl Albumin/Globulin Ratio 0.9 Assessment & Plan Alcohol Withdraw Has been drinking 12 pack of beer daily Gabapentin protocol for EtOH withdrawal, Ativan PRN Continue banana bag One to one observation Continue Librium 10mg BID Continue monitor closely for DT No seizure activity No signs of DT Consider inpatient alcohol rehab Continue monitor in tele Elevated Liver Enzymes Mostly related to alcohol abuse AST 256, ALT 153 pn admission Liver enzymes continue trending down Continue IVF Monitor Liver enzymes Stable Hyponatremia Na 121 on admission Na 135 today Mostly related to alcohol and poor intake Continue IVF Continue monitor BMP Generalized Weakness fall precaution PT/OT Depression Psych consulted was not able to cooperate Once sober, will reassess if he wants to see psych Nunez's Esophagus Continue PPI Electrolytes imbalance stable Continue monitor HTN BP stable Tachycardia Due to alcohol withdrawn Continue low dose of lopressor for HR > 120 prn Continue home dose metoprolol 25 mg daily Continue monitor in telemetry Echo showed * The left ventricular systolic function is grossly normal on technically limited evaluation. * Regional wall motion cannot be assessed due to the tachycardia and technically inadequate images. * There is no significant valvular disease. DVT ppx due to thrombocytopenia, no medical DVT prophylaxis, SCDs FULL CODE Disposition Consider alcohol rehab on discharge Consultants: psych Current Inpatient Medications: Current Inpatient Medications Medications (Trade) Dose Ordered Sig/Akanksha Route Start Time Stop Time Status Last Admin Dose Admin Sodium Chloride 1,000 ml @ 100 mls/hr Q10H IV 08/07/17 16:36 09/06/17 16:35 08/09/17 07:44 100 MLS/HR Multivitamins 10 ml/Thiamine HCl 100 mg/Folic Acid 1 mg/Sodium Chloride 1,011.2 ml @ 500 mls/ hr DAILY@0900 IV 08/08/17 09:00 09/07/17 08:59 08/09/17 08:42 500 MLS/HR Ondansetron HCl (Zofran Inj) 4 mg Q6H PRN IV 08/07/17 07:00 09/06/17 06:59 Pantoprazole Sodium (Protonix Tab) 40 mg QAM PO 08/07/17 09:00 09/06/17 08:59 08/09/17 07:45 40 MG Gabapentin (Neurontin Tab) 600 mg Q12H PO 08/09/17 10:00 08/09/17 22:01 08/09/17 07:45 600 MG Gabapentin (Neurontin Tab) 600 mg Q24H PO 08/10/17 22:00 08/10/17 22:01 Chlordiazepoxide (Librium Cap) 10 mg BID PO 08/07/17 09:00 09/06/17 08:59 08/09/17 07:44 10 MG Metoprolol Succinate (Toprol Xl Tab) 25 mg QAM PO 08/07/17 20:00 09/06/17 19:59 08/09/17 07:45 25 MG Metoprolol Tartrate (Lopressor Iv) 2.5 mg Q4 PRN IV 08/08/17 18:15 09/06/17 09:29 Lorazepam (Ativan Inj) 1 mg UD PRN IV 08/09/17 11:15 09/08/17 11:14 08/09/17 11:08 1 MG
[2017-08-09] MEDS: METOPROLOL TARTRATE 1 MG/ML VIAL IV PRN (20:06)
[2017-08-10] VITALS (10 sets, daily range): BP systolic 114–168; BP diastolic 79–131; PULSE 89–126; TEMP 36.8–37.7; O2SAT 91–97
[2017-08-10] MEDS ORDERED: ACETAMINOPHEN IV 650 MG in EMPTY BAG 0 ML IV PRN (00:45)
--- NOTE | 2017-08-10 06:56 | DIAGNOSTIC IMAGING REPORT ---
CHEST ONE VIEW PORTABLE CLINICAL HISTORY: Shortness of breath COMPARISON STUDY: 01/02/2015 FINDINGS: There is elevation the right hemidiaphragmatic contour. The patient is rotated. The heart is normal in size. There are right basilar infrahilar consolidative changes. There is increased density right paramediastinal region. Imaging follow-up is recommended to exclude central mass/adenopathy[ IMPRESSION: 1. Technically limited study 2. Elevation of the right hemidiaphragm contour with right paramediastinal and infrahilar opacities. While the findings may be secondary to a pneumonia, underlying mass cannot be excluded. Radiographic follow-up is recommended. Electronically signed by: Richard Garcia M.D. 08/10/2017 6:54 AM Dictated Date/Time: 08/10/2017 6:52 AM
[2017-08-10] MEDS: PANTOprazole SOD 40 MG TAB PO SCH (07:33)
[2017-08-10] MEDS: CHLORDIAZEPOXIDE 10 MG CAP PO SCH ×2 (07:33→20:18)
[2017-08-10] MEDS: METOPROLOL SUCC 25MG EXT REL TAB PO SCH (07:33)
[2017-08-10] MEDS: LORAZEPAM 2 MG/ML 1 ML VIAL IV PRN (07:33)
[2017-08-10] MEDS: METOPROLOL TARTRATE 1 MG/ML VIAL IV PRN ×3 (07:36→19:58)
[2017-08-10] MEDS: MULTI-VITAMIN INFUSION INJ 10 ML, THIAMINE HCL INJ 100 MG, FoLIC ACID INJ 1 MG in SODIU... IV SCH (09:51)
[2017-08-10] MEDS ORDERED: LEVALBUTEROL/IPRATROPIUM NEB INH PRN (11:45)
[2017-08-10 11:53] LABS: HEMATOCRIT 39.5 % (42-52); MEAN CELL VOLUME 95.2 fL (80-100); MEAN CORPUSCULAR HEMOGLOBIN 33.5 pg (25-34); MEAN CORPUSCULAR HGB CONC 35.2 g/dl (32-36); RED BLOOD COUNT 4.15 M/uL (4.7-6.1); WHITE BLOOD COUNT 7.62 K/uL (4.8-10.8)
[2017-08-10 12:09] LABS: BUN/CREATININE RATIO 12.6 (10-20); CALCIUM 7.7 mg/dl (8.5-10.1); CREATININE 0.47 mg/dl (0.60-1.40); POTASSIUM 3.2 mmol/L (3.5-5.1)
[2017-08-10] MEDS ORDERED: LEVALBUTEROL 0.63MG/3 ML NEB INH PRN (12:15)
[2017-08-10] MEDS ORDERED: IPRATROPIUM BROMIDE NEB SOLN 0.02% 2.5 ML VIAL INH PRN (12:15)
[2017-08-10 12:36] LABS: MEAN PLATELET VOLUME 10.9 fL (7.4-10.4); PLATELET COUNT 68 K/uL (130-400)
[2017-08-10] MEDS ORDERED: POTASSIUM CHLORIDE 20 MEQ TABCR PO ONE (13:30)
[2017-08-10] MEDS: SODIUM CHLORIDE 0.9% 1000ML 1,000 ML IV SCH (15:54)
--- NOTE | 2017-08-10 18:31 | Progress Note ---
Medicine Progress Note Date & Time of Visit: Aug 10, 2017 at 11:28. Subjective Pt was seen and examined Lying in bed with no distress Pt looks more awake today He was able to follow my commands Denies any hallucination, chest pain, and palpitation Objective Last 8 Hrs Date Time Temp Pulse Resp B/P (MAP) Pulse Ox O2 Delivery O2 Flow Rate FiO2 08/10/17 16:00 96 Room Air 2.0 08/10/17 15:37 36.8 108 18 142/101 (115) 97 Nasal Cannula 2.0 08/10/17 12:44 124 164/110 08/10/17 12:00 96 Room Air 2.0 08/10/17 11:09 37.7 126 19 163/110 (127) 91 Room Air 160/113 (129) Physical Exam: General- sleeping Head- atraumatic Eyes- PERRL, EOMI ENT- oropharynx clear Neck- supple, no JVD Lungs- clear to auscultation Heart- tachycardia Abdomen- normal bowel sounds, soft Extremities-no calf tenderness, +tremors Neuro-Sleeping, moving all 4 extremities mild pain stimuli Skin- warm & dry Laboratory Results: Last 24 Hours Test 08/10/17 11:41 White Blood Count 7.62 K/uL Red Blood Count 4.15 M/uL Hemoglobin 13.9 g/dL Hematocrit 39.5 % Mean Corpuscular Volume 95.2 fL Mean Corpuscular Hemoglobin 33.5 pg Mean Corpuscular Hemoglobin Concent 35.2 g/dl RDW Standard Deviation 41.7 fL RDW Coefficient of Variation 12.1 % Platelet Count 68 K/uL Mean Platelet Volume 10.9 fL Sodium Level 132 mmol/L Potassium Level 3.2 mmol/L Chloride Level 95 mmol/L Carbon Dioxide Level 30 mmol/L Anion Gap 7.0 mmol/L Blood Urea Nitrogen 6 mg/dl Creatinine 0.47 mg/dl Est Creatinine Clear Calc Drug Dose 161.7 ml/min Estimated GFR () 149.2 Estimated GFR (Non- 128.7 BUN/Creatinine Ratio 12.6 Random Glucose 125 mg/dl Calcium Level 7.7 mg/dl Date/Time Source Procedure Growth Status 08/10/17 01:00 Blood Blood Culture Pending Received 08/10/17 00:52 Blood Blood Culture Pending Received 08/10/17 00:50 Urine,Catheterized Urine Culture Pending Received Assessment & Plan Alcohol Withdraw Has been drinking 12 pack of beer daily Gabapentin protocol for EtOH withdrawal, Ativan PRN Continue banana bag One to one observation Continue Librium 10mg BID Continue monitor closely for DT No seizure activity No signs of DT Consider inpatient alcohol rehab Continue monitor in tele No signs of DT Elevated Liver Enzymes Mostly related to alcohol abuse AST 256, ALT 153 pn admission Liver enzymes continue trending down Continue IVF Monitor Liver enzymes Stable Hypokalemia K replaced Continue monitor BMP Hyponatremia Na 121 on admission Na 132 today Mostly related to alcohol and poor intake Continue IVF Continue monitor BMP Generalized Weakness fall precaution PT/OT Depression Psych consulted was not able to cooperate Once sober, will reassess if he wants to see psych Nunez's Esophagus Continue PPI Electrolytes imbalance stable Continue monitor HTN BP stable Tachycardia Due to alcohol withdrawn Continue low dose of lopressor for HR > 120 prn Continue home dose metoprolol 25 mg daily Continue monitor in telemetry Echo showed * The left ventricular systolic function is grossly normal on technically limited evaluation. * Regional wall motion cannot be assessed due to the tachycardia and technically inadequate images. * There is no significant valvular disease. DVT ppx due to thrombocytopenia, no medical DVT prophylaxis, SCDs FULL CODE Disposition Consider alcohol rehab on discharge Consultants: psych Current Inpatient Medications: Current Inpatient Medications Medications (Trade) Dose Ordered Sig/Akanksha Route Start Time Stop Time Status Last Admin Dose Admin Sodium Chloride 1,000 ml @ 70 mls/hr [id number] IV 08/07/17 16:36 09/06/17 16:35 08/10/17 15:54 70 MLS/HR Multivitamins 10 ml/Thiamine HCl 100 mg/Folic Acid 1 mg/Sodium Chloride 1,011.2 ml @ 500 mls/ hr DAILY@0900 IV 08/08/17 09:00 09/07/17 08:59 08/10/17 09:51 500 MLS/HR Ondansetron HCl (Zofran Inj) 4 mg Q6H PRN IV 08/07/17 07:00 09/06/17 06:59 Pantoprazole Sodium (Protonix Tab) 40 mg QAM PO 08/07/17 09:00 09/06/17 08:59 08/10/17 07:33 40 MG Gabapentin (Neurontin Tab) 600 mg Q24H PO 08/10/17 22:00 08/10/17 22:01 Chlordiazepoxide (Librium Cap) 10 mg BID PO 08/07/17 09:00 09/06/17 08:59 08/10/17 07:33 10 MG Metoprolol Succinate (Toprol Xl Tab) 25 mg QAM PO 08/07/17 20:00 09/06/17 19:59 08/10/17 07:33 25 MG Metoprolol Tartrate (Lopressor Iv) 2.5 mg Q4 PRN IV 08/08/17 18:15 09/06/17 09:29 08/10/17 12:44 2.5 MG Lorazepam (Ativan Inj) 1 mg UD PRN IV 08/09/17 11:15 09/08/17 11:14 08/10/17 07:33 1 MG Acetaminophen (Tylenol Tab) 650 mg Q4H PRN PO 08/10/17 00:30 09/09/17 00:29 Acetaminophen 650 mg/Empty Bag 65 ml @ 260 mls/hr Q6H PRN IV 08/10/17 00:45 09/09/17 00:44 08/10/17 01:23 260 MLS/HR Ipratropium [place] (Atrovent 0.02% 0.5MG/2.5ML Neb) 0.5 mg Q6R PRN INH 08/10/17 12:15 09/09/17 12:14 Levalbuterol (Xopenex 0.63 Mg/ 3 Ml Neb) 0.63 mg Q6R PRN INH 08/10/17 12:15 09/09/17 12:14
[2017-08-10] MEDS ORDERED: GABAPENTIN 600MG X1 DOSE PO SCH (22:00)
[2017-08-11] VITALS (14 sets, daily range): BP systolic 83–160; BP diastolic 56–117; PULSE 98–128; TEMP 36.4–37.7; O2SAT 90–97
[2017-08-11] MEDS: LORAZEPAM 2 MG/ML 1 ML VIAL IV PRN ×3 (01:44→12:20)
[2017-08-11] MEDS: SODIUM CHLORIDE 0.9% 1000ML 1,000 ML IV SCH (06:50)
[2017-08-11] MEDS: METOPROLOL SUCC 25MG EXT REL TAB PO SCH (07:31)
[2017-08-11] MEDS: METOPROLOL TARTRATE 1 MG/ML VIAL IV PRN ×2 (07:31→12:20)
[2017-08-11] MEDS: PANTOprazole SOD 40 MG TAB PO SCH (07:32)
[2017-08-11] MEDS: CHLORDIAZEPOXIDE 10 MG CAP PO SCH (07:33)
--- NOTE | 2017-08-11 07:48 | DIAGNOSTIC IMAGING REPORT ---
CHEST ONE VIEW PORTABLE CLINICAL HISTORY: SOB dyspnea COMPARISON STUDY: 08/10/2017 FINDINGS: Increase in pulmonary vasculature compared to the prior study. The heart remains enlarged. Chronic elevation right hemidiaphragm with unchanging right basilar consolidative change. Developing parenchymal infiltrate left base. IMPRESSION: 1. 1. Findings of developing superimposed congestive failure. 2. Bibasilar parenchymal atelectatic and/or consolidative change mildly progressive from the prior study. The above report was generated using voice recognition software. It may contain grammatical, syntax or spelling errors. Electronically signed by: Tristin Antoine M.D. 08/11/2017 7:47 AM Dictated Date/Time: 08/11/2017 7:45 AM
[2017-08-11 07:56] LABS: HEMATOCRIT 40.6 % (42-52); MEAN CELL VOLUME 96.9 fL (80-100); MEAN CORPUSCULAR HEMOGLOBIN 33.4 pg (25-34); MEAN CORPUSCULAR HGB CONC 34.5 g/dl (32-36); RED BLOOD COUNT 4.19 M/uL (4.7-6.1); WHITE BLOOD COUNT 4.96 K/uL (4.8-10.8)
[2017-08-11 07:57] LABS: ARTERIAL BLD GAS O2 SATURATION 95.1 % (90-95); ARTERIAL BLOOD GAS BASE EXCESS 5.8 mEq/L (-9-1.8); ARTERIAL BLOOD GAS HCO3 34 mmol/L (19-24); ARTERIAL BLOOD GAS PO2 81 mm/Hg (80-95); ARTERIAL BLOOD GAS pH 7.31 (7.35-7.45)
[2017-08-11 08:14] LABS: MEAN PLATELET VOLUME 10.1 fL (7.4-10.4); PLATELET COUNT 95 K/uL (130-400)
[2017-08-11 08:19] LABS: ALT/SGPT 81 U/L (12-78); BLOOD UREA NITROGEN 5 mg/dl (7-18); BUN/CREATININE RATIO 11.4 (10-20); CARBON DIOXIDE 35 mmol/L (21-32); CHLORIDE 94 mmol/L (98-107); CREATININE 0.43 mg/dl (0.60-1.40); GLUCOSE 128 mg/dl (70-99); POTASSIUM 3.2 mmol/L (3.5-5.1); SODIUM 133 mmol/L (136-145)
[2017-08-11] MEDS ORDERED: FUROSEMIDE INJ 40 MG in SYRINGE 0 ML IV ONE (08:30)
[2017-08-11 08:47] LABS: ALB/GLOB RATIO 0.8 (0.9-2); ALKALINE PHOSPHATASE 73 U/L (45-117); AST/SGOT 56 U/L (15-37)
[2017-08-11 08:49] LABS: ALLEN TEST POS (POS); O2 ADMINISTRATION 3.5
[2017-08-11] MEDS: MULTI-VITAMIN INFUSION INJ 10 ML, THIAMINE HCL INJ 100 MG, FoLIC ACID INJ 1 MG in SODIU... IV SCH (09:32)
--- NOTE | 2017-08-11 15:56 | Progress Note ---
Medicine Progress Note Date & Time of Visit: Aug 11, 2017 at 15:35. Subjective Pt was seen and examined Lying in bed with mild respiratory distress Pt was having difficulty to breath He said that he had chest tightness He was started on BIPBAP After a few hours I went to see pt, he said that his breathing was better on the BIPPAP He denies any chest pain, palpitation, dizziness when i saw him again at that time Objective Last 8 Hrs Date Time Temp Pulse Resp B/P (MAP) Pulse Ox O2 Delivery O2 Flow Rate FiO2 08/11/17 14:39 120 95 5.0 08/11/17 14:39 123 95 5.0 08/11/17 12:20 135 08/11/17 12:00 96 Nasal Cannula 4.0 BiPAP 08/11/17 11:56 37.7 128 18 133/85 (101) 90 5.0 08/11/17 11:00 122 95 5.0 08/11/17 08:00 92 Nasal Cannula 4.0 08/11/17 07:57 98 95 5.0 08/11/17 07:56 98 12 94 Nasal Cannula 4.0 Physical Exam: General- sleeping Head- atraumatic Eyes- PERRL, EOMI ENT- oropharynx clear Neck- supple, no JVD Lungs- clear to auscultation Heart- tachycardia Abdomen- normal bowel sounds, soft Extremities-no calf tenderness, +tremors Neuro-Sleeping, moving all 4 extremities mild pain stimuli Skin- warm & dry Laboratory Results: Last 24 Hours Test 08/11/17 07:46 White Blood Count 4.96 K/uL Red Blood Count 4.19 M/uL Hemoglobin 14.0 g/dL Hematocrit 40.6 % Mean Corpuscular Volume 96.9 fL Mean Corpuscular Hemoglobin 33.4 pg Mean Corpuscular Hemoglobin Concent 34.5 g/dl RDW Standard Deviation 43.0 fL RDW Coefficient of Variation 12.1 % Platelet Count 95 K/uL Mean Platelet Volume 10.1 fL Arterial Blood pH 7.31 Arterial Blood Partial Pressure CO2 69 mmHg Arterial Blood Partial Pressure O2 81 mm/Hg Arterial Blood HCO3 34 mmol/L Arterial Blood Oxygen Saturation 95.1 % Arterial Blood Base Excess 5.8 mEq/L Arterial Blood Gas Delivery 3.5 Todd Test POS Sodium Level 133 mmol/L Potassium Level 3.2 mmol/L Chloride Level 94 mmol/L Carbon Dioxide Level 35 mmol/L Anion Gap 5.0 mmol/L Blood Urea Nitrogen 5 mg/dl Creatinine 0.43 mg/dl Est Creatinine Clear Calc Drug Dose 176.8 ml/min Estimated GFR () > 150.0 Estimated GFR (Non- 133.5 BUN/Creatinine Ratio 11.4 Random Glucose 128 mg/dl Calcium Level 8.0 mg/dl Total Bilirubin 1.3 mg/dl Aspartate Amino Transf (AST/SGOT) 56 U/L Alanine Aminotransferase (ALT/SGPT) 81 U/L Alkaline Phosphatase 73 U/L Troponin I 0.049 ng/ml Total Protein 5.9 gm/dl Albumin 2.6 gm/dl Globulin 3.3 gm/dl Albumin/Globulin Ratio 0.8 Assessment & Plan Acute hypoxia respiratory distress Due to fluid overload CXR showed developing superimposed congestive failure.Bibasilar parenchymal atelectatic and/or consolidative change mildly progressive from the prior study. Lasix 40mg IV stat given Starting on Bipap Will hold on abx for now Will repeat CXR tomorrow for f/u, and if infiltrate shows will start on abx Start abx if pt spike a fever and WBC elevated D/C IVF Continue monitor closely Chest Discomfort Secondary to fluid overload Troponin 0.049 EKG showed no significant ST changes Monitor troponin Continue metoprolol No aspirin given due to low platelet Continue monitor in tele Alcohol Withdraw Has been drinking 12 pack of beer daily Gabapentin protocol for EtOH withdrawal, Ativan PRN Continue banana bag One to one observation Continue monitor closely for DT No seizure activity No signs of DT Consider inpatient alcohol rehab Continue monitor in tele Will decrease Librium to daily No signs of DT Elevated Liver Enzymes Mostly related to alcohol abuse AST 256, ALT 153 pn admission Liver enzymes continue trending down Continue IVF Monitor Liver enzymes Stable Hypokalemia K replaced Continue monitor BMP Hyponatremia Na 121 on admission Na 133 today Mostly related to alcohol and poor intake D/C IVF Continue monitor BMP Generalized Weakness fall precaution PT/OT Depression Psych consulted was not able to cooperate Once sober, will reassess if he wants to see psych Nunez's Esophagus Continue PPI Electrolytes imbalance stable Continue monitor HTN BP stable Tachycardia Due to alcohol withdrawn Continue low dose of lopressor for HR > 120 prn Continue home dose metoprolol 25 mg daily Continue monitor in telemetry Echo showed * The left ventricular systolic function is grossly normal on technically limited evaluation. * Regional wall motion cannot be assessed due to the tachycardia and technically inadequate images. * There is no significant valvular disease. DVT ppx due to thrombocytopenia, no medical DVT prophylaxis, SCDs FULL CODE Disposition Consider alcohol rehab on discharge Consultants: psych Current Inpatient Medications: Current Inpatient Medications Medications (Trade) Dose Ordered Sig/Akanksha Route Start Time Stop Time Status Last Admin Dose Admin Sodium Chloride 1,000 ml @ 70 mls/hr [id number] IV 08/07/17 16:36 09/06/17 16:35 Future Hold 08/11/17 06:50 70 MLS/HR Multivitamins 10 ml/Thiamine HCl 100 mg/Folic Acid 1 mg/Sodium Chloride 1,011.2 ml @ 500 mls/ hr DAILY@0900 IV 08/08/17 09:00 09/07/17 08:59 08/11/17 09:32 500 MLS/HR Ondansetron HCl (Zofran Inj) 4 mg Q6H PRN IV 08/07/17 07:00 09/06/17 06:59 Pantoprazole Sodium (Protonix Tab) 40 mg QAM PO 08/07/17 09:00 09/06/17 08:59 08/11/17 07:32 40 MG Chlordiazepoxide (Librium Cap) 10 mg BID PO 08/07/17 09:00 09/06/17 08:59 08/11/17 07:33 10 MG Metoprolol Succinate (Toprol Xl Tab) 25 mg QAM PO 08/07/17 20:00 09/06/17 19:59 08/11/17 07:31 25 MG Metoprolol Tartrate (Lopressor Iv) 2.5 mg Q4 PRN IV 08/08/17 18:15 09/06/17 09:29 08/11/17 12:20 2.5 MG Lorazepam (Ativan Inj) 1 mg UD PRN IV 08/09/17 11:15 09/08/17 11:14 08/11/17 12:20 1 MG Acetaminophen (Tylenol Tab) 650 mg Q4H PRN PO 08/10/17 00:30 09/09/17 00:29 Acetaminophen 650 mg/Empty Bag 65 ml @ 260 mls/hr Q6H PRN IV 08/10/17 00:45 09/09/17 00:44 08/10/17 01:23 260 MLS/HR Ipratropium [place] (Atrovent 0.02% 0.5MG/2.5ML Neb) 0.5 mg Q6R PRN INH 08/10/17 12:15 09/09/17 12:14 08/11/17 07:56 0.5 MG Levalbuterol (Xopenex 0.63 Mg/ 3 Ml Neb) 0.63 mg Q6R PRN INH 08/10/17 12:15 09/09/17 12:14 08/11/17 07:56 0.63 MG
[2017-08-11] MEDS ORDERED: POTASSIUM CHLORIDE 10 MEQ TABCR PO ONE (16:30)
[2017-08-12] VITALS (8 sets, daily range): BP systolic 93–131; BP diastolic 65–87; PULSE 55–128; TEMP 36.4–37.1; O2SAT 91–99
[2017-08-12 06:41] LABS: HEMATOCRIT 44.7 % (42-52); MEAN CELL VOLUME 97.6 fL (80-100); MEAN CORPUSCULAR HEMOGLOBIN 33.4 pg (25-34); MEAN CORPUSCULAR HGB CONC 34.2 g/dl (32-36); MEAN PLATELET VOLUME 10.7 fL (7.4-10.4); PLATELET COUNT 112 K/uL (130-400); RED BLOOD COUNT 4.58 M/uL (4.7-6.1); WHITE BLOOD COUNT 4.51 K/uL (4.8-10.8)
[2017-08-12 07:02] LABS: BUN/CREATININE RATIO 18.7 (10-20); CALCIUM 8.2 mg/dl (8.5-10.1); CREATININE 0.5 mg/dl (0.60-1.40); POTASSIUM 3.7 mmol/L (3.5-5.1)
[2017-08-12 07:16] LABS: ALB/GLOB RATIO 0.7 (0.9-2)
--- NOTE | 2017-08-12 08:11 | DIAGNOSTIC IMAGING REPORT ---
CHEST ONE VIEW PORTABLE CLINICAL HISTORY: F/U COMPARISON STUDY: Chest radiograph August 11, 2017. FINDINGS: There is no pneumothorax. Small bilateral pleural effusions are present. Lung volumes are diminished. This is unchanged. Bibasilar and right perihilar opacities persist. IMPRESSION: 1. Persistent bibasilar and right perihilar opacities which favor bilateral pneumonia. Radiographic follow up to ensure resolution is recommended. 2. Diminished lung volumes. 3. Small right and trace left pleural effusions. Electronically signed by: Дмитрий Hagen M.D. 08/12/2017 8:09 AM Dictated Date/Time: 08/12/2017 8:06 AM
[2017-08-12] MEDS: METOPROLOL SUCC 25MG EXT REL TAB PO SCH (08:22)
[2017-08-12] MEDS: CHLORDIAZEPOXIDE 10 MG CAP PO SCH (08:22)
[2017-08-12] MEDS: PANTOprazole SOD 40 MG TAB PO SCH (08:22)
[2017-08-12] MEDS ORDERED: PIPERACILL/TAZOBAC CONSULT ACTIVE PRN (09:15)
[2017-08-12] MEDS ORDERED: PIPERACILL/TAZOBAC IV 3.375 GM in DEXTROSE 5% 100ML 100 ML IV ONE (09:30)
[2017-08-12] MEDS: CEFEPIME IV 2,000 MG in SYRINGE 7.5 ML IV SCH ×2 (10:30→21:27)
[2017-08-12] MEDS ORDERED: PIPERACILL/TAZOBAC IV 3.375 GM in DEXTROSE 5% 100ML 100 ML IV SCH (12:00)
--- NOTE | 2017-08-12 19:00 | Progress Note ---
Medicine Progress Note Date & Time of Visit: Aug 12, 2017 at 09:50. Subjective Pt was seen and examined Lying in bed with no distress Feels much better today Off bipap Denies any chest pain palpitation, dizziness and SOB Objective Last 8 Hrs Date Time Temp Pulse Resp B/P (MAP) Pulse Ox O2 Delivery O2 Flow Rate FiO2 08/12/17 16:00 Nasal Cannula 4.0 08/12/17 15:32 37.1 107 18 124/87 (99) 99 Nasal Cannula 2.0 08/12/17 12:00 Nasal Cannula 4.0 08/12/17 11:01 37.0 128 19 121/84 (96) 91 Room Air Physical Exam: General- follow command Head- atraumatic Eyes- PERRL, EOMI ENT- oropharynx clear Neck- supple, no JVD Lungs- Decrease BS Heart- tachycardia Abdomen- normal bowel sounds, soft Extremities-no calf tenderness, +tremors Neuro-Sleeping, moving all 4 extremities mild pain stimuli Skin- warm & dry Laboratory Results: Last 24 Hours Test 08/12/17 05:58 08/12/17 06:11 White Blood Count 4.51 K/uL Red Blood Count 4.58 M/uL Hemoglobin 15.3 g/dL Hematocrit 44.7 % Mean Corpuscular Volume 97.6 fL Mean Corpuscular Hemoglobin 33.4 pg Mean Corpuscular Hemoglobin Concent 34.2 g/dl RDW Standard Deviation 43.9 fL RDW Coefficient of Variation 12.3 % Platelet Count 112 K/uL Mean Platelet Volume 10.7 fL Sodium Level 134 mmol/L Potassium Level 3.7 mmol/L Chloride Level 95 mmol/L Carbon Dioxide Level 34 mmol/L Anion Gap 5.0 mmol/L Blood Urea Nitrogen 9 mg/dl Creatinine 0.50 mg/dl Est Creatinine Clear Calc Drug Dose 152.0 ml/min Estimated GFR () 145.4 Estimated GFR (Non- 125.5 BUN/Creatinine Ratio 18.7 Random Glucose 99 mg/dl Calcium Level 8.2 mg/dl Total Bilirubin 1.2 mg/dl Aspartate Amino Transf (AST/SGOT) 52 U/L Alanine Aminotransferase (ALT/SGPT) 72 U/L Alkaline Phosphatase 75 U/L Total Protein 6.3 gm/dl Albumin 2.6 gm/dl Globulin 3.7 gm/dl Albumin/Globulin Ratio 0.7 Troponin I 0.036 ng/ml Assessment & Plan Acute hypoxia respiratory distress Due to fluid overload CXR showed developing superimposed congestive failure.Bibasilar parenchymal atelectatic and/or consolidative change mildly progressive from the prior study. Lasix 40mg IV given yesterday Off Bipap Repeat CXR this morning showed Persistent bibasilar and right perihilar opacities which favor bilateral pneumonia. Continue oxygen supplement Clinically improved Pneumonia CXR showed Persistent bibasilar and right perihilar opacities which favor bilateral pneumonia. Starting on cefepime 2g BID Consider to add levaquin Continue monitor closely Chest Discomfort Secondary to fluid overload Troponin 0.049 EKG showed no significant ST changes Monitor troponin Continue metoprolol No aspirin given due to low platelet Continue monitor in tele Alcohol Withdraw Has been drinking 12 pack of beer daily Gabapentin protocol for EtOH withdrawal, Ativan PRN Continue banana bag One to one observation Continue monitor closely for DT No seizure activity No signs of DT Consider inpatient alcohol rehab Continue monitor in tele Will decrease Librium to daily No signs of DT Clinically improved Elevated Liver Enzymes Mostly related to alcohol abuse AST 256, ALT 153 pn admission Liver enzymes continue trending down Continue IVF Monitor Liver enzymes Stable Hypokalemia K stable Continue monitor BMP Hyponatremia Na 121 on admission Na 134 today Mostly related to alcohol and poor intake D/C IVF Continue monitor BMP Generalized Weakness fall precaution PT/OT Depression Psych consulted was not able to cooperate Once sober, will reassess if he wants to see psych Nunez's Esophagus Continue PPI Electrolytes imbalance stable Continue monitor HTN BP stable Tachycardia Due to alcohol withdrawn Continue low dose of lopressor for HR > 120 prn Continue home dose metoprolol 25 mg daily Continue monitor in telemetry Echo showed * The left ventricular systolic function is grossly normal on technically limited evaluation. * Regional wall motion cannot be assessed due to the tachycardia and technically inadequate images. * There is no significant valvular disease. DVT ppx due to thrombocytopenia, no medical DVT prophylaxis, SCDs FULL CODE Disposition Consider alcohol rehab on discharge Consultants: psych Current Inpatient Medications: Current Inpatient Medications Medications (Trade) Dose Ordered Sig/Akanksha Route Start Time Stop Time Status Last Admin Dose Admin Sodium Chloride 1,000 ml @ 70 mls/hr [id number] IV 08/07/17 16:36 09/06/17 16:35 Future Hold 08/11/17 06:50 70 MLS/HR Ondansetron HCl (Zofran Inj) 4 mg Q6H PRN IV 08/07/17 07:00 09/06/17 06:59 Pantoprazole Sodium (Protonix Tab) 40 mg QAM PO 08/07/17 09:00 09/06/17 08:59 08/12/17 08:22 40 MG Metoprolol Succinate (Toprol Xl Tab) 25 mg QAM PO 08/07/17 20:00 09/06/17 19:59 08/12/17 08:22 25 MG Metoprolol Tartrate (Lopressor Iv) 2.5 mg Q4 PRN IV 08/08/17 18:15 09/06/17 09:29 08/11/17 12:20 2.5 MG Lorazepam (Ativan Inj) 1 mg UD PRN IV 08/09/17 11:15 09/08/17 11:14 08/11/17 12:20 1 MG Acetaminophen (Tylenol Tab) 650 mg Q4H PRN PO 08/10/17 00:30 09/09/17 00:29 Acetaminophen 650 mg/Empty Bag 65 ml @ 260 mls/hr Q6H PRN IV 08/10/17 00:45 09/09/17 00:44 08/10/17 01:23 260 MLS/HR Ipratropium [place] (Atrovent 0.02% 0.5MG/2.5ML Neb) 0.5 mg Q6R PRN INH 08/10/17 12:15 09/09/17 12:14 08/11/17 07:56 0.5 MG Levalbuterol (Xopenex 0.63 Mg/ 3 Ml Neb) 0.63 mg Q6R PRN INH 08/10/17 12:15 09/09/17 12:14 08/11/17 07:56 0.63 MG Chlordiazepoxide (Librium Cap) 10 mg DAILY PO 08/12/17 09:00 09/06/17 08:59 08/12/17 08:22 10 MG Cefepime HCl 2000 mg/Syringe 20 ml @ 5 mls/min Q12@1000,2200 IV 08/12/17 09:46 08/19/17 09:45 08/12/17 10:30 5 MLS/MIN
[2017-08-12] MEDS: LORAZEPAM 2 MG/ML 1 ML VIAL IV PRN (19:27)
[2017-08-13 04:30] VITALS: BP 138/92; PULSE 103; TEMP 36.7; O2SAT 99
[2017-08-13 08:17] VITALS: BP 134/69; PULSE 109; TEMP 36.8; O2SAT 95
[2017-08-13] MEDS: PANTOprazole SOD 40 MG TAB PO SCH (08:19)
[2017-08-13] MEDS: CHLORDIAZEPOXIDE 10 MG CAP PO SCH (08:19)
[2017-08-13] MEDS: METOPROLOL SUCC 25MG EXT REL TAB PO SCH (08:19)
--- NOTE | 2017-08-13 08:39 | Progress Note ---
Medicine Progress Note Date & Time of Visit: Aug 13, 2017 at 08:32. Subjective Pt was seen and examined Lying in bed with no distress watching movie Pt said that he feels much better today he said that he still feels a little weak Denies any chest pain, palpitation, dizziness hallucination Objective Last 8 Hrs Date Time Temp Pulse Resp B/P (MAP) Pulse Ox O2 Delivery O2 Flow Rate FiO2 08/13/17 08:17 36.8 109 18 134/69 (90) 95 2.0 08/13/17 04:30 36.7 103 16 138/92 (107) 99 Nasal Cannula 2.0 08/13/17 04:00 Nasal Cannula 4.0 Physical Exam: General- No acute distress Head- atraumatic Eyes- PERRL, EOMI ENT- oropharynx clear Neck- supple, no JVD Lungs- Decrease BS Heart- tachycardia Abdomen- normal bowel sounds, soft Extremities-no calf tenderness, +tremors Neuro-moving all 4 extremities mild pain stimuli, follow command Skin- warm & dry Laboratory Results: Last 24 Hours Test 08/13/17 05:36 Assessment & Plan Acute hypoxia respiratory distress Due to fluid overload CXR showed developing superimposed congestive failure.Bibasilar parenchymal atelectatic and/or consolidative change mildly progressive from the prior study. Received Lasix 40mg IVx1 Off Bipap Repeat CXR yesterday showed Persistent bibasilar and right perihilar opacities which favor bilateral pneumonia. Continue oxygen supplement Clinically improved Pneumonia CXR showed Persistent bibasilar and right perihilar opacities which favor bilateral pneumonia. continue cefepime 2g BID Continue monitor closely Clinically improved blood cx no growth Procalcitonin wnl Chest Discomfort Secondary to fluid overload Troponin 0.049 EKG showed no significant ST changes Monitor troponin Continue metoprolol No aspirin given due to low platelet Continue monitor in tele Stable Alcohol Withdraw Has been drinking 12 pack of beer daily Gabapentin protocol for EtOH withdrawal, Ativan PRN Continue banana bag One to one observation Continue monitor closely for DT No seizure activity No signs of DT Consider inpatient alcohol rehab, Pt will talk to his and think about it Continue monitor in tele Will decrease Librium to daily No signs of DT Clinically improved Elevated Liver Enzymes Mostly related to alcohol abuse AST 256, ALT 153 pn admission Liver enzymes continue trending down Continue IVF Monitor Liver enzymes Stable Hypokalemia K stable Continue monitor BMP Hyponatremia Na 121 on admission Na 134 today Mostly related to alcohol and poor intake D/C IVF Continue monitor BMP Generalized Weakness fall precaution PT/OT Depression Psych consulted was not able to cooperate Will reconsult psych Nunez's Esophagus Continue PPI Electrolytes imbalance stable Continue monitor HTN BP stable Tachycardia Due to alcohol withdrawn Continue low dose of lopressor for HR > 120 prn Continue home dose metoprolol 25 mg daily Continue monitor in telemetry Echo showed * The left ventricular systolic function is grossly normal on technically limited evaluation. * Regional wall motion cannot be assessed due to the tachycardia and technically inadequate images. * There is no significant valvular disease. DVT ppx due to thrombocytopenia, no medical DVT prophylaxis, SCDs FULL CODE Disposition Consider alcohol rehab on discharge Consultants: psych Current Inpatient Medications: Current Inpatient Medications Medications (Trade) Dose Ordered Sig/Akanksha Route Start Time Stop Time Status Last Admin Dose Admin Sodium Chloride 1,000 ml @ 70 mls/hr [id number] IV 08/07/17 16:36 09/06/17 16:35 Future Hold 08/11/17 06:50 70 MLS/HR Ondansetron HCl (Zofran Inj) 4 mg Q6H PRN IV 08/07/17 07:00 09/06/17 06:59 Pantoprazole Sodium (Protonix Tab) 40 mg QAM PO 08/07/17 09:00 09/06/17 08:59 08/13/17 08:19 40 MG Metoprolol Succinate (Toprol Xl Tab) 25 mg QAM PO 08/07/17 20:00 09/06/17 19:59 08/13/17 08:19 25 MG Metoprolol Tartrate (Lopressor Iv) 2.5 mg Q4 PRN IV 08/08/17 18:15 09/06/17 09:29 08/11/17 12:20 2.5 MG Lorazepam (Ativan Inj) 1 mg UD PRN IV 08/09/17 11:15 09/08/17 11:14 08/12/17 19:27 1 MG Acetaminophen (Tylenol Tab) 650 mg Q4H PRN PO 08/10/17 00:30 09/09/17 00:29 Acetaminophen 650 mg/Empty Bag 65 ml @ 260 mls/hr Q6H PRN IV 08/10/17 00:45 09/09/17 00:44 08/10/17 01:23 260 MLS/HR Ipratropium [place] (Atrovent 0.02% 0.5MG/2.5ML Neb) 0.5 mg Q6R PRN INH 08/10/17 12:15 09/09/17 12:14 08/11/17 07:56 0.5 MG Levalbuterol (Xopenex 0.63 Mg/ 3 Ml Neb) 0.63 mg Q6R PRN INH 08/10/17 12:15 09/09/17 12:14 08/11/17 07:56 0.63 MG Chlordiazepoxide (Librium Cap) 10 mg DAILY PO 08/12/17 09:00 09/06/17 08:59 08/13/17 08:19 10 MG Cefepime HCl 2000 mg/Syringe 20 ml @ 5 mls/min Q12@1000,2200 IV 08/12/17 09:46 08/19/17 09:45 08/12/17 21:27 5 MLS/MIN
[2017-08-13 09:27] LABS: MEAN CORPUSCULAR HEMOGLOBIN 33.2 pg (25-34); MEAN CORPUSCULAR HGB CONC 33.8 g/dl (32-36); MEAN PLATELET VOLUME 9.5 fL (7.4-10.4); PLATELET COUNT 140 K/uL (130-400); RED BLOOD COUNT 3.98 M/uL (4.7-6.1); WHITE BLOOD COUNT 3.23 K/uL (4.8-10.8)
[2017-08-13 09:58] LABS: BUN/CREATININE RATIO 10.5 (10-20); CALCIUM 8.9 mg/dl (8.5-10.1); CREATININE 0.61 mg/dl (0.60-1.40); POTASSIUM 3.2 mmol/L (3.5-5.1)
[2017-08-13] MEDS: THIAMINE HCL 100 MG TAB PO SCH (10:24)
[2017-08-13] MEDS: CEFEPIME IV 2,000 MG in SYRINGE 7.5 ML IV SCH ×2 (10:24→21:38)
[2017-08-13 15:49] VITALS: BP 118/83; PULSE 116; TEMP 37.6; O2SAT 97
--- NOTE | 2017-08-13 18:46 | Psychiatric Progress Notes ---
Progress Note Date of Service Aug 13, 2017. Interval History Mr. Eddie Rudd is a 52-year-old male who lives in [facility] With a history of alcohol dependence with multiple admissions for alcohol withdrawal seizures and was recently admitted for detox. He was seen on 08/07/[address] Mena at that time wasn't delirium tremens and unable to participate in a thorough mood disorder evaluation. Our team was called back again today 08/13/2017 for further evaluation of his depression Chief Complaint "I think I want to go to therapy". Subjective The patient states he has long-standing history of depression with intermittent recoveries. He feels he's been depressed for approximately 4 months with associated decreased interest, decreased energy, low motivation, increased desire to sleep as many as 14-16 hours a day at times. He at times has difficulty with poor appetite. He feels bad about himself that he is a failure as what others down. He denies changes in concentration, denies psychomotor agitation or retardation. He denies thoughts of suicide although sometimes he wishes he could "go live [place] a [place] island" to get away from his concerns. On further exploration of his mood there have been times in the past where he has had decreased need for sleep and increased goal-directed activity lasting for several days getting by on 4 less hours of sleep feeling more social and more talkative. He will feel better than his usual self.He will feel more creative and beer more artistic. He denies doing anything extreme during these times but feels they occur when he is in a new relationship. He denies spending more money or feeling more holiness. He will feel better than his usual self. He has never been away from alcohol long enough and so therefore is unclear if these experiences of lows and elevations change during sobriety. In regards to anxiety he states he is always been a worrier. He denies being routinely keyed up and on edge. He denies routine trouble sleeping due to anxiety. He does have social anxiety and he will avoid because of his anxiety. He has had occasional panic in the past but not presently. He denies a history of trauma. He denies a history of signs or symptoms of PTSD. He denies a history of signs or symptoms of OCD On psychiatric review of symptoms he denies history of hallucinations outside of complicated alcohol withdrawal, denies a history of aggression toward self or others. He denies a history of eating disordered behavior. He denies a history of conduct disorder or oppositional defiant symptoms. Review of Systems See psychiatric review of symptoms as above. He states he does feel physically poorly nonspecific with this provider and denies symptoms on 10 system review of symptoms. Mental Status Exam During interview pt is: cooperative Appearance: other (he appears unwell) Eye contact is: fair Motor behavior is: no abnormal motor movements Speech: other (minimal, answers in few word phrases nonspontaneous) Affect: blunted Mood is: other ("down I guess") Thought process: goal directed, linear, logical, clear, coherent Thought content: reality based without delusions Suicidal thought are: denied, Plan: denied, Intent: denied Homicidal thoughts are: denied Hallucinations: denies auditory, denies visual Cognition: memory grossly intact, attention grossly intact Intelligence estimated to be: average Insight: fair Judgement: fair Summary of Past History - Past psychiatric treatment includes therapy 2 years ago he cannot recall the name of the person - He denies taking medications for psychiatric reasons in the past - He denies a history of suicide attempts, no self-injurious behavior - He does have access to guns have been secured by his confirmed at the bedside - Past substance history includes clear concepts and [facility] for outpatient, and [place] [facility] for inpatient. - He denies use of illicit substances or overuse of prescription substances - He has history of complicated withdrawal to include DTs as well as having a history of legal trouble at [facility] 3 years ago for which he served residential time and paid a fine Social History: Patient was born and raised in [place] by his mother and father alongside his sister. He completed high school but could not recall the year he graduated when interviewed with this provider. He suffered a significant loss in January 2017 his father and is grieving. He attempted some college and [employer] studying Venezuelan but did not graduate. 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 They've been for 3 years. He does not have children. He considers his mother and his his supports. He was raised Restorationist this contact with family practice his daniel. He denies any current legal issues other than his DUI 3 years ago. He denies a history of physical emotional sexual or verbal abuse. Medication Trials (1) Nunez esophagus (2) HTN (hypertension) (3) Osteoarthritis (4) History of cardiomyopathy (5) Delirium tremens Impression The patient is a 52-year-old white male with long-standing alcohol dependence currently in withdrawal. He presently has symptoms of mild to moderate depression denying safety concerns now or in the past. He is also grieving the loss of his father from January 2017. He would like to engage in outpatient therapy declines medications at this time --Once medically stabilized Outpatient care for psychiatric care is the least restrictive and most appropriate setting for this care for this patient as he denies risk factors of imminent harm to self or others (Risk factors include white, male, substance abuse, recent loss, depression, anxiety) (Protective factors include intact sleep, supportive family relationship, supportive , job, intact reality testing, weapons are secured, no prior attempts at self-harm, no family history of suicide, future oriented) Plan (1) Alcohol abuse -- Would clarify patient likely meets criteria for alcohol dependence at this point given history of complicated withdrawal and repeated readmissions for alcohol withdrawal showing inability to cut down, and legal issues continuing to use despite awareness of harm. - Regardless we discussed today that recommendation is for inpatient rehabilitation. If he declines we cannot compel him but at a minimum would encourage drug and alcohol resources as an outpatient independent of his mental health therapist. He would benefit from groups and individual counseling at a minimum - I brought up the topic of relapse prevention medications with this individual. Patient was not interested in taking medications. However he has been made aware of naltrexone, and acamprosate, and disulfiram by name and I encouraged him to consider and ask in the future if he becomes more open to this possibility. (2) Unspecified episodic mood disorder - The patient declines medications at this time we did discuss that if he feels that medications are indicated in the future would be important for him to reveal to his provider the episodic nature of his mood in the past so that they do not give him the medication which would worsen his mood. I discussed that difficult to interpret his mood given the alcohol use in the past which can mimic bipolarity, but on the conservative side that he may indeed have an underlying bipolar mood. We discussed how therapy can be helpful for major depressive disorder but will not be sufficient for stabilizing mood and to consider working with a psychiatrist in the future should his mood symptoms persist. - Give the patient resources for outpatient therapists that work with dual diagnosis as well as local drug and alcohol outpatient resources that have therapists as well encouraged patient to go to inpatient rehabilitation but if he does not to attempt to call security therapy and/or outpatient drug and alcohol resource appointment prior to leaving his medical hospital stay Visit Code E&M Code: 61698 Risk Factors Assessment Male: Yes : Yes Access to guns: No (secured by ) Health problems: Yes Mental Health Diagnoses: Yes Substance use disorders: Yes Previous attempt: No Previous psychiatric stay: No Hopelessness: No Smoker: Yes Protective Factors Assessment Mormonism beliefs: Yes : Yes Responsible for young children: No Employed: Yes Stable relationships: Yes Supportive family: Yes Data Vital Signs Last 24 Hrs: Date Time Temp Pulse Resp B/P (MAP) Pulse Ox O2 Delivery O2 Flow Rate FiO2 08/13/17 16:00 Nasal Cannula 2.0 08/13/17 15:49 37.6 116 18 118/83 (95) 97 Nasal Cannula 2.0 08/13/17 12:00 Nasal Cannula 3.0 08/13/17 08:17 36.8 109 18 134/69 (90) 95 2.0 08/13/17 08:00 Nasal Cannula 3.0 08/13/17 04:30 36.7 103 16 138/92 (107) 99 Nasal Cannula 2.0 08/13/17 04:00 Nasal Cannula 4.0 08/13/17 00:00 Nasal Cannula 4.0 08/12/17 23:47 36.8 102 16 122/82 (95) 96 BiPAP 08/12/17 21:58 98 5.0 08/12/17 20:04 36.6 109 18 110/75 (87) 98 Room Air 08/12/17 20:00 Nasal Cannula 4.0 Meds Administered Last 24 Hrs: Meds Administered (Past 24Hrs) Medications (Trade) Dose Ordered Sig/Akanksha Route Start Time Stop Time Status Last Admin Dose Admin Chlordiazepoxide (Librium Cap) 10 mg DAILY PO 08/12/17 09:00 09/06/17 08:59 08/13/17 08:19 10 MG Cefepime HCl 2000 mg/Syringe 20 ml @ 5 mls/min Q12@1000,2200 IV 08/12/17 09:46 08/19/17 09:45 08/13/17 10:24 5 MLS/MIN Thiamine HCl (Vitamin B-1 Tab) 100 mg QAM PO 08/13/17 09:00 09/12/17 08:59 08/13/17 10:24 100 MG Folic Acid (Folvite Tab) 1 mg QAM PO 08/13/17 09:00 09/12/17 08:59 08/13/17 10:24 1 MG Lab Results Last 24 Hrs: Last 24 Hours Test 08/13/17 09:10 White Blood Count 3.23 K/uL Red Blood Count 3.98 M/uL Hemoglobin 13.2 g/dL Hematocrit 39.0 % Mean Corpuscular Volume 98.0 fL Mean Corpuscular Hemoglobin 33.2 pg Mean Corpuscular Hemoglobin Concent 33.8 g/dl RDW Standard Deviation 43.7 fL RDW Coefficient of Variation 12.2 % Platelet Count 140 K/uL Mean Platelet Volume 9.5 fL Sodium Level 138 mmol/L Potassium Level 3.2 mmol/L Chloride Level 97 mmol/L Carbon Dioxide Level 35 mmol/L Anion Gap 6.0 mmol/L Blood Urea Nitrogen 6 mg/dl Creatinine 0.61 mg/dl Est Creatinine Clear Calc Drug Dose 124.6 ml/min Estimated GFR () 134.0 Estimated GFR (Non- 115.6 BUN/Creatinine Ratio 10.5 Random Glucose 134 mg/dl Calcium Level 8.9 mg/dl
[2017-08-13 19:26] VITALS: BP 123/86; PULSE 112; TEMP 37.6; O2SAT 95
[2017-08-13] MEDS: LORAZEPAM 2 MG/ML 1 ML VIAL IV PRN (20:24)
[2017-08-14] VITALS (7 sets, daily range): BP systolic 117–134; BP diastolic 68–95; PULSE 68–119; TEMP 36.6–37.1; O2SAT 92–97
[2017-08-14] MEDS: LORAZEPAM 2 MG/ML 1 ML VIAL IV PRN ×2 (02:29→14:05)
[2017-08-14] MEDS: THIAMINE HCL 100 MG TAB PO SCH (08:24)
[2017-08-14] MEDS: PANTOprazole SOD 40 MG TAB PO SCH (08:24)
[2017-08-14] MEDS: METOPROLOL SUCC 25MG EXT REL TAB PO SCH (08:25)
[2017-08-14] MEDS: CHLORDIAZEPOXIDE 10 MG CAP PO SCH (08:35)
[2017-08-14] MEDS: CEFEPIME IV 2,000 MG in SYRINGE 7.5 ML IV SCH ×2 (10:40→22:19)
[2017-08-14] MEDS ORDERED: POTASSIUM CHLORIDE 20 MEQ TABCR PO ONE (10:45)
--- NOTE | 2017-08-14 17:34 | Progress Note ---
Medicine Progress Note Date & Time of Visit: Aug 14, 2017 at 09:24. Subjective Pt was seen and examined Lying in bed with no distress Pt said that he feels much better He said that his breathing is good He denies any hallucination Denies any chest pain, palpitation, dizziness and SOB Objective Last 8 Hrs Date Time Temp Pulse Resp B/P (MAP) Pulse Ox O2 Delivery O2 Flow Rate FiO2 08/14/17 15:32 36.7 119 18 117/80 (92) 93 Room Air 08/14/17 15:30 Room Air 08/14/17 12:00 Room Air 08/14/17 11:50 36.9 72 18 122/69 (86) 97 Physical Exam: General- No acute distress Head- atraumatic Eyes- PERRL, EOMI ENT- oropharynx clear Neck- supple, no JVD Lungs- Clear breath sound Heart- tachycardia Abdomen- normal bowel sounds, soft Extremities-no calf tenderness, +tremors Neuro-moving all 4 extremities mild pain stimuli, follow command Skin- warm & dry Assessment & Plan Acute hypoxia respiratory distress Due to fluid overload CXR showed developing superimposed congestive failure.Bibasilar parenchymal atelectatic and/or consolidative change mildly progressive from the prior study. Received Lasix 40mg IVx1 Off Bipap Repeat CXR yesterday showed Persistent bibasilar and right perihilar opacities which favor bilateral pneumonia. Continue oxygen supplement Clinically improved 08/14 Clinically better has been saturated well on RA Continue monitor Pneumonia CXR showed Persistent bibasilar and right perihilar opacities which favor bilateral pneumonia. continue cefepime 2g BID Continue monitor closely Clinically improved blood cx no growth Procalcitonin wnl Change abx to levaquin PO stable Chest Discomfort Secondary to fluid overload Troponin 0.049 EKG showed no significant ST changes Monitor troponin Continue metoprolol No aspirin given due to low platelet Continue monitor in tele Stable Alcohol Withdraw Has been drinking 12 pack of beer daily Gabapentin protocol for EtOH withdrawal, Ativan PRN Continue banana bag One to one observation Continue monitor closely for DT No seizure activity No signs of DT Consider inpatient alcohol rehab, Pt will talk to his and think about it Continue monitor in tele Librium was changed to daily Now Librium can be D/C No signs of DT Clinically improved Talked to case planner for inpatient alcohol rehab Elevated Liver Enzymes Mostly related to alcohol abuse AST 256, ALT 153 pn admission Liver enzymes trending down to near normal Monitor Liver enzymes Stable Hypokalemia K 3.2 K replaced Continue monitor BMP Hyponatremia Na 121 on admission Na 138today Mostly related to alcohol and poor intake D/C IVF Continue monitor BMP Generalized Weakness fall precaution PT/OT PT recommended inpatient rehab Thrombocytopenia Related to alcohol platelet improved to 140 No active bleeding Depression Psych consulted Pt refused antidepressant med at this time as per psych Nunez's Esophagus Continue PPI Electrolytes imbalance stable Continue monitor HTN BP stable Tachycardia Due to alcohol withdrawn Continue low dose of lopressor for HR > 120 prn Continue home dose metoprolol 25 mg daily Continue monitor in telemetry Echo showed * The left ventricular systolic function is grossly normal on technically limited evaluation. * Regional wall motion cannot be assessed due to the tachycardia and technically inadequate images. * There is no significant valvular disease. DVT ppx due to thrombocytopenia, no medical DVT prophylaxis, SCDs FULL CODE Disposition Consider alcohol inpatient rehab Consultants: psych Current Inpatient Medications: Current Inpatient Medications Medications (Trade) Dose Ordered Sig/Akanksha Route Start Time Stop Time Status Last Admin Dose Admin Sodium Chloride 1,000 ml @ 70 mls/hr [id number] IV 08/07/17 16:36 09/06/17 16:35 Future Hold 08/11/17 06:50 70 MLS/HR Ondansetron HCl (Zofran Inj) 4 mg Q6H PRN IV 08/07/17 07:00 09/06/17 06:59 Pantoprazole Sodium (Protonix Tab) 40 mg QAM PO 08/07/17 09:00 09/06/17 08:59 08/14/17 08:24 40 MG Metoprolol Succinate (Toprol Xl Tab) 25 mg QAM PO 08/07/17 20:00 09/06/17 19:59 08/14/17 08:25 25 MG Metoprolol Tartrate (Lopressor Iv) 2.5 mg Q4 PRN IV 08/08/17 18:15 09/06/17 09:29 08/11/17 12:20 2.5 MG Lorazepam (Ativan Inj) 1 mg UD PRN IV 08/09/17 11:15 09/08/17 11:14 08/14/17 14:05 1 MG Acetaminophen (Tylenol Tab) 650 mg Q4H PRN PO 08/10/17 00:30 09/09/17 00:29 Acetaminophen 650 mg/Empty Bag 65 ml @ 260 mls/hr Q6H PRN IV 08/10/17 00:45 09/09/17 00:44 08/10/17 01:23 260 MLS/HR Ipratropium [place]dwell (Atrovent 0.02% 0.5MG/2.5ML Neb) 0.5 mg Q6R PRN INH 08/10/17 12:15 09/09/17 12:14 08/11/17 07:56 0.5 MG Levalbuterol (Xopenex 0.63 Mg/ 3 Ml Neb) 0.63 mg Q6R PRN INH 08/10/17 12:15 09/09/17 12:14 08/11/17 07:56 0.63 MG Chlordiazepoxide (Librium Cap) 10 mg DAILY PO 08/12/17 09:00 09/06/17 08:59 08/14/17 08:35 10 MG Cefepime HCl 2000 mg/Syringe 20 ml @ 5 mls/min Q12@1000,2200 IV 08/12/17 09:46 08/19/17 09:45 08/14/17 10:40 5 MLS/MIN Thiamine HCl (Vitamin B-1 Tab) 100 mg QAM PO 08/13/17 09:00 09/12/17 08:59 08/14/17 08:24 100 MG Folic Acid (Folvite Tab) 1 mg QAM PO 08/13/17 09:00 09/12/17 08:59 08/14/17 08:24 1 MG
[2017-08-15] VITALS (9 sets, daily range): BP systolic 110–133; BP diastolic 79–94; PULSE 101–118; TEMP 36.4–37.4; O2SAT 92–96
[2017-08-15 05:53] LABS: HEMATOCRIT 43.3 % (42-52); MEAN CELL VOLUME 96.2 fL (80-100); MEAN CORPUSCULAR HEMOGLOBIN 33.3 pg (25-34); MEAN CORPUSCULAR HGB CONC 34.6 g/dl (32-36); MEAN PLATELET VOLUME 9.7 fL (7.4-10.4); PLATELET COUNT 241 K/uL (130-400); WHITE BLOOD COUNT 4.34 K/uL (4.8-10.8)
[2017-08-15 06:34] LABS: BUN/CREATININE RATIO 18.5 (10-20); CALCIUM 9.2 mg/dl (8.5-10.1); CREATININE 0.57 mg/dl (0.60-1.40); POTASSIUM 4.1 mmol/L (3.5-5.1)
[2017-08-15] MEDS: METOPROLOL SUCC 25MG EXT REL TAB PO SCH (08:47)
[2017-08-15] MEDS: CHLORDIAZEPOXIDE 10 MG CAP PO SCH (08:47)
[2017-08-15] MEDS: THIAMINE HCL 100 MG TAB PO SCH (08:48)
[2017-08-15] MEDS: PANTOprazole SOD 40 MG TAB PO SCH (08:48)
[2017-08-15] MEDS: CEFEPIME IV 2,000 MG in SYRINGE 7.5 ML IV SCH ×2 (10:34→21:12)
--- NOTE | 2017-08-15 21:04 | Progress Note ---
Internal Med Progress Note Date of Service: Aug 15, 2017. Provider Documentation: SUBJECTIVE: no complain of SOB or chest pain no hypoxia , in room air complains of being anxious and zittery asking for meds for nerve remains tachycardic on monitor pt is asymptomatic , no complain of palpitation OBJECTIVE: Vital Signs-as noted below Exam: General-anxious , Eyes-sclera non icteric , PERRLA /EOMI ENT-moist oral mucosa, normal oropharynx Neck-supple, trachea midline , no thyromegaly Lungs-clear to auscultate , no wheeze or rales Heart-regular , Tachycardic Abdomen-soft, non tender Extremities-no rash or deformity Neuro-anxious , + tremor on out stretched hands, no focal deficit Lab data as noted below. ASSESSMENT & PLAN: Alcohol Withdrawal Has been drinking 12 pack of beer daily ordered Gabapentin protocol for EtOH withdrawal-completed , Ativan PRN cont on Librium , and Ativan remains tachycardic and anxious will increased frequency of Librium Pneumonia CXR showed Persistent bibasilar and right perihilar opacities which favor bilateral pneumonia. was cefepime 2g BID Clinically improved blood cx no growth Procalcitonin wnl Change abx to levaquin PO- Chest Discomfort no further complain Troponin 0.049 EKG showed no significant ST changes Continue metoprolol No aspirin given due to low platelet Continue monitor in tele Stable Acute hypoxia respiratory distress resolved , in RA now Due to fluid overload CXR showed developing superimposed congestive failure.Bibasilar parenchymal atelectatic and/or consolidative change mildly progressive from the prior study. Received Lasix 40mg IVx1 Elevated Liver Enzymes Mostly related to alcohol abuse AST 256, ALT 153 pn admission Liver enzymes trending down to near normal Monitor Liver enzymes Stable Hypokalemia corrected Hyponatremia Mostly related to alcohol and poor intake Continue monitor BMP Generalized Weakness fall precaution PT/OT PT recommended inpatient rehab Thrombocytopenia Related to alcohol No active bleeding Depression Psych consulted-appreciate input Nunez's Esophagus Continue PPI Electrolytes imbalance stable Continue monitor HTN BP stable Tachycardia Due to alcohol withdrawn Continue low dose of lopressor for HR > 100 prn Continue home dose metoprolol 25 mg daily -PRN Ativan for withdrawal symptom Continue monitor in telemetry Echo : * The left ventricular systolic function is grossly normal on technically limited evaluation. * Regional wall motion cannot be assessed due to the tachycardia and technically inadequate images. * There is no significant valvular disease. DVT ppx due to thrombocytopenia, no medical DVT prophylaxis, SCDs FULL CODE Disposition Consider alcohol inpatient rehab Consultants: psych Vital Signs: Date Time Temp Pulse Resp B/P (MAP) Pulse Ox O2 Delivery O2 Flow Rate FiO2 08/15/17 19:25 Room Air 08/15/17 19:03 37.1 117 22 113/84 (94) 93 Room Air 08/15/17 16:10 92 Room Air 08/15/17 15:22 36.6 110 21 133/94 (107) 92 Room Air 08/15/17 12:15 96 Room Air 08/15/17 11:04 36.9 110 20 122/86 (98) 96 Room Air 08/15/17 08:09 Room Air 08/15/17 07:15 36.8 112 20 128/93 (105) 96 Room Air 08/15/17 04:04 36.4 101 17 110/79 (89) 95 Room Air 08/15/17 04:00 Room Air 08/15/17 00:00 Room Air 08/14/17 23:47 36.7 115 16 124/91 (102) 96 Room Air Lab Results: Results Past 24 Hours Test 08/15/17 05:29 Range/Units White Blood Count 4.34 4.8-10.8 K/uL Red Blood Count 4.50 4.7-6.1 M/uL Hemoglobin 15.0 14.0-18.0 g/dL Hematocrit 43.3 42-52 % Mean Corpuscular Volume 96.2 80-100 fL Mean Corpuscular Hemoglobin 33.3 25-34 pg Mean Corpuscular Hemoglobin Concent 34.6 32-36 g/dl RDW Standard Deviation 43.7 36.4-46.3 fL RDW Coefficient of Variation 12.5 11.5-14.5 % Platelet Count 241 130-400 K/uL Mean Platelet Volume 9.7 7.4-10.4 fL Sodium Level 133 136-145 mmol/L Potassium Level 4.1 3.5-5.1 mmol/L Chloride Level 102 98-107 mmol/L Carbon Dioxide Level 28 21-32 mmol/L Anion Gap 3.0 3-11 mmol/L Blood Urea Nitrogen 11 7-18 mg/dl Creatinine 0.57 0.60-1.40 mg/dl Est Creatinine Clear Calc Drug Dose 126.6 ml/min Estimated GFR () 137.8 Estimated GFR (Non- 118.9 BUN/Creatinine Ratio 18.5 10-20 Random Glucose 105 70-99 mg/dl Calcium Level 9.2 8.5-10.1 mg/dl
[2017-08-15] MEDS: LORAZEPAM 2 MG/ML 1 ML VIAL IV PRN (21:12)
[2017-08-15] MEDS ORDERED: CHLORDIAZEPOXIDE 25 MG CAP PO SCH (21:15)
[2017-08-15] MEDS ORDERED: LORAZEPAM 2 MG/ML 1 ML VIAL IV PRN (21:15)
[2017-08-15] MEDS: METOPROLOL TARTRATE 1 MG/ML VIAL IV PRN (21:37)
[2017-08-15] MEDS: CHLORDIAZEPOXIDE 50MG STARTING DOSE PO SCH (21:53)
[2017-08-16] MEDS: LORAZEPAM 2 MG/ML 1 ML VIAL IV PRN ×3 (02:06→07:17)
[2017-08-16 04:24] VITALS: BP 126/90; PULSE 106; TEMP 37.1; O2SAT 94
[2017-08-16] MEDS: METOPROLOL TARTRATE 1 MG/ML VIAL IV PRN (04:32)
[2017-08-16] MEDS: CHLORDIAZEPOXIDE 50MG STARTING DOSE PO SCH ×2 (05:58→12:00)
[2017-08-16 07:55] VITALS: BP 124/88; PULSE 101; TEMP 36.8; O2SAT 93
[2017-08-16] MEDS ORDERED: SODIUM CHLORIDE 0.9% 1000ML 1,000 ML IV SCH (08:00)
[2017-08-16] MEDS: PANTOprazole SOD 40 MG TAB PO SCH (08:21)
[2017-08-16] MEDS: THIAMINE HCL 100 MG TAB PO SCH (08:21)
[2017-08-16] MEDS: METOPROLOL SUCC 25MG EXT REL TAB PO SCH (08:21)
--- NOTE | 2017-08-16 10:33 | Clinical Documentation Query ---
CLINICAL DOCUMENTATION QUERY 52-y/o male with pneumonia and alcohol withdrawl. On AM of 08/11 patient had "acute respiratory distress" attributed to fluid volume overload. Query #1/2 In your clinical opinion is this patient being managed for: (x ) Acute preserved EF CHF treated and resolved with IV Lasix. ( ) Not Agree ( ) Other explanation of clinical findings (Please Explain) ( ) Unable to determine (Please Define) ( ) Need to Discuss The medical record reflects the following clinical findings, treatment, and risk factors. Clinical Indicators: tachycardia 135, hypoxia 80%, crackles by nursing assessment to lungs and accessory muscle use. CXR showed developing superimposed congestive failure. Most recent echo showed grossly normal LV systolic function. Treatment: O2 via BiPAP, IV Lasix, Risk Factors: Age, tachycardia, Large volume IVF administration 08/08-08/10. Query #2/2 In your clinical opinion is this patient being managed for: (x ) Acute hypoxic respiratory failure in setting of acute preserved EF CHF treated and resolved with O2, BiPAP, and IV Lasix. ( ) Not Agree ( ) Other explanation of clinical findings (Please Explain) ( ) Unable to determine (Please Define) ( ) Need to Discuss The medical record reflects the following clinical findings, treatment, and risk factors. Clinical Indicators: tachycardia 135, hypoxia 80%, crackles by nursing assessment to lungs and accessory muscle use. CXR showed developing superimposed congestive failure. Treatment: O2 via BiPAP, IV Lasix, Risk Factors: Age, tachycardia, Large volume IVF administration 08/08-08/10. Please clarify and document your clinical opinion in the progress notes and discharge summary. Terms such as "probable", "suspected", "likely", "questionable", "possible", or "still to be ruled out" are acceptable. IF IN AGREEMENT, YOU MUST DOCUMENT ABOVE DIAGNOSTIC STATEMENT IN DAILY PROGRESS NOTES AND DISCHARGE SUMMARY. This document is not part of the patient's record. Thank You, Harinder Duke, MELISSA [phone]
--- NOTE | 2017-08-16 10:56 | Clinical Documentation Query ---
CLINICAL DOCUMENTATION QUERY 52-y/o male with pneumonia and alcohol withdrawl. On AM of 08/11 patient had "acute respiratory distress" attributed to fluid volume overload. Query #1/2 In your clinical opinion is this patient being managed for: ( ) Acute preserved EF CHF treated and resolved with IV Lasix. ( ) Not Agree ( ) Other explanation of clinical findings (Please Explain) ( ) Unable to determine (Please Define) ( ) Need to Discuss The medical record reflects the following clinical findings, treatment, and risk factors. Clinical Indicators: tachycardia 135, hypoxia 80%, crackles by nursing assessment to lungs and accessory muscle use. CXR showed developing superimposed congestive failure. Most recent echo showed grossly normal LV systolic function. Treatment: O2 via BiPAP, IV Lasix, Risk Factors: Age, tachycardia, Large volume IVF administration 08/08-08/10. Query #2/2 In your clinical opinion is this patient being managed for: ( ) Acute hypoxic respiratory failure in setting of acute preserved EF CHF treated and resolved with O2, BiPAP, and IV Lasix. ( ) Not Agree ( ) Other explanation of clinical findings (Please Explain) ( ) Unable to determine (Please Define) ( ) Need to Discuss The medical record reflects the following clinical findings, treatment, and risk factors. Clinical Indicators: tachycardia 135, hypoxia 80%, crackles by nursing assessment to lungs and accessory muscle use. CXR showed developing superimposed congestive failure. Treatment: O2 via BiPAP, IV Lasix, Risk Factors: Age, tachycardia, Large volume IVF administration 08/08-08/10. Please clarify and document your clinical opinion in the progress notes and discharge summary. Terms such as "probable", "suspected", "likely", "questionable", "possible", or "still to be ruled out" are acceptable. IF IN AGREEMENT, YOU MUST DOCUMENT ABOVE DIAGNOSTIC STATEMENT IN DAILY PROGRESS NOTES AND DISCHARGE SUMMARY. This document is not part of the patient's record. Thank You, Harinder Duke RN [phone]
[2017-08-16 11:04] VITALS: BP 102/72; PULSE 108; TEMP 36.6; O2SAT 93
[2017-08-16] MEDS ORDERED: NURSING VERBAL MED ORDER ONE ×2 (11:30→14:15)
[2017-08-16] MEDS: LEVOFLOXACIN 500 MG TAB PO SCH (11:31)
[2017-08-16] MEDS ORDERED: SODIUM CHLORIDE 0.9% 500ML 500 ML IV ONE (11:45)
[2017-08-16 12:22] VITALS: O2SAT 93
--- NOTE | 2017-08-16 13:46 | Progress Note ---
Internal Med Progress Note Date of Service: Aug 16, 2017. 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 [employer] tachycardic , found to be anxious /trying to get out of bed this morning , got scheduled dose of Librium followed by PRN Ativan pt was very drowsy , BP drooped to low 90's , given IV fluid bolus pt evaluated after an hour , awake , very confused , no hallucination present at bedside -mentions yesterday evening before she left pt was screaming for Beer pt currently un employed , never worked for [employer] got fired from [employer] this year due to drinking habit at home pt would be up all night every day constantly drinking -that has been his routine for past 3-4 yrs this is the longest saw him not drinking since they got worried about pt's confusion -does not feel comfortable to have pt return home , she 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 [employer] , will not be able to take care of the pt at his current state OBJECTIVE: Vital Signs-as noted below Exam: General-confused, disoriented Eyes-sclera non icteric , PERRLA /EOMI ENT-moist oral mucosa, normal oropharynx Neck-supple, trachea midline , no thyromegaly Lungs-clear to auscultate , no wheeze or rales Heart-regular , Tachycardic Abdomen-soft, non tender Extremities-no rash or deformity Neuro-confusion , able to tell his name and , does not know where he is at , can not recall any past event , making up events to fill the gaps in memories no focal weakness or paresthesia , significant gait instability Lab data as noted below. 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 -due to chronic alcoholism -which also contributes to Gait instability , Hypotension and Tachycardia pt is already been Thiamine and folic acid since admission will change thiamine to IV infusion will order for Thiamine and Folic acid level in AM check TSH CT head with out contrast in AM if no improvement of confusion with IV thiamine Neurology eval requested ALCOHOL INTOXICATION : been a heavy drinker all his life per his -pt will drink continuously 12 narcisa or more Beer every day had Alcohol withdrawal seizure 2 yrs back -happened while he was driving and not drinking alcohol for few hours was at Alcohol rehab [facility] few years back , was Sober for 6-9 months , started to drink heavily again pt been treated with alcohol with drawl protocol since admission on 08/07/17 completed Gabapentin protocol , given liberal dose of Ativan still remains confused with episodes of agitation , hallucination Doubt symptoms are due to withdrawal -al most 9 days since last drink concern for Alcoholic encephalopathy Librium D/loren , PRN low dose Ativan for agitation will start pt on IV thiamine Neurology eval cont to monitor in tele SINUS TACHYCARDIA : due to alcoholic psychosis ? cont IVF to correct dehydration which may cause physiologic tachycardia Continue home dose metoprolol 25 mg daily -PRN Ativan for agitation Continue monitor in telemetry Echo : * The left ventricular systolic function is grossly normal on technically limited evaluation. * Regional wall motion cannot be assessed due to the tachycardia and technically inadequate images. * There is no significant valvular disease. cont tele monitoring Pneumonia CXR showed Persistent bibasilar and right perihilar opacities which favor bilateral pneumonia. Clinically improved blood cx no growth Procalcitonin wnl Change abx to levaquin PO- Chest Discomfort no further complain Troponin 0.049 EKG showed no significant ST changes Continue metoprolol No aspirin given due to low platelet Continue monitor in tele Stable Acute hypoxia respiratory distress resolved , in RA now Due to fluid overload CXR showed developing superimposed congestive failure.Bibasilar parenchymal atelectatic and/or consolidative change mildly progressive from the prior study. Received Lasix 40mg IVx1 Elevated Liver Enzymes Mostly related to alcohol abuse AST 256, ALT 153 pn admission Liver enzymes trending down to near normal Monitor Liver enzymes Stable Hypokalemia corrected Hyponatremia Mostly related to alcohol and poor intake Continue monitor BMP Thrombocytopenia Related to alcohol No active bleeding Depression Psych consulted-appreciate input recommend in patient alcohol rehab once clinically stable will need close follow up with out pt Psychiatrist / therapist to assess underlying depression and management Nunez's Esophagus Continue PPI Electrolytes imbalance stable Continue monitor HTN BP stable DVT ppx due to thrombocytopenia, no medical DVT prophylaxis, SCDs FULL CODE DISPOSITION : pt has significant function and cognitive decline persisted confusion and marked gait disturbance PT/OT eval appreciated recommend rehab -referral made to [facility] given pt's current confusion -he is unable to follow command to participate on PT will need continued in patient care till medically stable for rehab Vital Signs: Date Time Temp Pulse Resp B/P (MAP) Pulse Ox O2 Delivery O2 Flow Rate FiO2 08/16/17 19:46 36.7 88 18 115/68 (84) 99 08/16/17 16:29 36.8 98 18 110/74 (86) 96 08/16/17 15:51 Room Air 08/16/17 12:22 93 Room Air 08/16/17 11:04 36.6 108 18 102/72 (82) 93 Room Air 08/16/17 08:00 Room Air 08/16/17 07:55 36.8 101 20 124/88 (100) 93 Room Air 08/16/17 04:32 106 126/90 08/16/17 04:24 37.1 106 18 126/90 (102) 94 Room Air 08/16/17 04:00 Room Air 08/16/17 00:00 Room Air 08/15/17 23:38 37.3 103 17 113/80 (91) 93 Room Air 08/15/17 21:37 118 129/86 08/15/17 21:30 37.4 118 20 129/86 (100) 94 Room Air
[2017-08-16 16:29] VITALS: BP 110/74; PULSE 98; TEMP 36.8; O2SAT 96
[2017-08-16 19:46] VITALS: BP 115/68; PULSE 88; TEMP 36.7; O2SAT 99
[2017-08-16] MEDS: THIAMINE HCL INJ 500 MG in SODIUM CHLORIDE 0.9% 100ML 100 ML IV SCH (22:56)
[2017-08-17] VITALS (8 sets, daily range): BP systolic 107–158; BP diastolic 78–109; PULSE 100–125; TEMP 36.3–37.1; O2SAT 93–96
[2017-08-17] MEDS ORDERED: CHLORDIAZEPOXIDE 50MG 2ND DOSE PO SCH
[2017-08-17] MEDS ORDERED: METOPROLOL SUCC 25MG EXT REL TAB PO ONE (04:43)
[2017-08-17 06:27] LABS: BLOOD UREA NITROGEN 8 mg/dl (7-18); BUN/CREATININE RATIO 13.7 (10-20); CARBON DIOXIDE 30 mmol/L (21-32); CHLORIDE 105 mmol/L (98-107); CREATININE 0.59 mg/dl (0.60-1.40); GLUCOSE 101 mg/dl (70-99); SODIUM 136 mmol/L (136-145)
--- NOTE | 2017-08-17 08:06 | DIAGNOSTIC IMAGING REPORT ---
HEAD WITHOUT CONTRAST (CT) CT DOSE: 788.63 mGycm HISTORY: Mental status change confusion /alcoholic encephalopathy TECHNIQUE: Multiaxial CT images of the head were performed without the use of intravenous contrast. A dose lowering technique was utilized adhering to the principles of ALARA. Comparison: 01/02/2015 Findings: The paranasal sinuses and mastoid air cells are clear. The calvarium and skull base are intact. The ventricles and sulci are within normal limits. There is no mass, hematoma, midline shift, or acute infarct. Impression: No acute intracranial abnormality. The above report was generated using voice recognition software. It may contain grammatical, syntax or spelling errors. Electronically signed by: Tristin Antoine M.D. 08/17/2017 8:04 AM Dictated Date/Time: 08/17/2017 8:00 AM
[2017-08-17] MEDS: PANTOprazole SOD 40 MG TAB PO SCH (08:08)
[2017-08-17] MEDS: THIAMINE HCL INJ 500 MG in SODIUM CHLORIDE 0.9% 100ML 100 ML IV SCH (08:08)
[2017-08-17] MEDS: LEVOFLOXACIN 500 MG TAB PO SCH (11:14)
[2017-08-17] MEDS ORDERED: GADAVIST IV PRN (12:15)
--- NOTE | 2017-08-17 12:39 | DIAGNOSTIC IMAGING REPORT ---
MRI OF THE BRAIN COMBO CLINICAL HISTORY: Confusion. Encephalopathy. COMPARISON STUDY: CT of the brain dated 08/17/2017. TECHNIQUE: MRI of the brain was performed utilizing various T1 and T2-weighted sequences in the axial, sagittal, and coronal planes. Contrast-enhanced sequences were acquired following the administration of 6 cc of Gadavist. FINDINGS: Brain parenchyma: There is minimal periventricular microangiopathic disease. The brain parenchyma is otherwise normal in appearance. There is no hemorrhage or mass effect. There is no restricted diffusion to suggest acute ischemia. No enhancing mass lesion is identified on the postcontrast images. Sy-white matter differentiation is preserved. No extra-axial fluid collection is seen. The cerebellar tonsils are normal in configuration. Ventricles, sulci, and cisterns: Normal in configuration. Pituitary and sella: Unremarkable. Intracranial vasculature: Normal flow voids are maintained at the skull base. Orbits: The bony orbits are grossly intact. Orbital contents are normal in appearance. Sinuses and mastoids: There is a small right mastoid effusion. The left mastoid air cells and the paranasal sinuses are clear. Calvarium: Unremarkable. Cervical cord: Partially visualized cervical spinal cord is normal in morphology and signal intensity. IMPRESSION: No acute intracranial abnormality. Electronically signed by: Tay Giang M.D. 08/17/2017 12:38 PM Dictated Date/Time: 08/17/2017 12:35 PM
[2017-08-17] MEDS: LORAZEPAM 2 MG/ML 1 ML VIAL IV PRN ×2 (13:09→22:45)
--- NOTE | 2017-08-17 15:13 | ELECTROENCEPHALOGRAPH REPORT ---
REQUESTING: Dr. Ball. CLINICAL DIAGNOSES: Persistent encephalopathy post-alcohol withdrawal treatment, question subclinical seizure activity. ELECTROENCEPHALOGRAM DIAGNOSIS: Essentially normal during wakefulness. DESCRIPTION OF TRACING: This EEG was done as a bedside recording and was of good technical quality with a simultaneous video analysis recording the patient movement and behavior. Photic stimulation the only stimulus parameter utilized. Drowsiness and light sleep were not recorded and hyperventilation was not performed. Under these conditions, there is evidence for a background rhythm in the alpha range of up to 10 Hz of maximum frequency and 30 microvolts of maximum amplitude. This is maximum posterior head regions and bilaterally symmetrical. Polymorphic mid frequency theta activity is seen over all head regions without clear focal or regional predominance. Anterior head region maximum bilaterally symmetrical low voltage fast activity in the beta range is present. Photic stimulation provoked modest driving response without a photomyogenic or photoparoxysmal component. At no time during the waking tracing is there evidence for potentially epileptogenic activity in the form of polyspike or spike wave bursts, focal sharp waves or focal spikes. INTERPRETATION: This EEG is essentially normal during wakefulness without evidence for focal or generalized encephalopathy and without evidence for potentially epileptogenic activity.
--- NOTE | 2017-08-17 16:44 | CONSULTATION REPORT ---
DATE OF CONSULTATION: 08/17/2017 Eddie is 52 years old and a patient of Dr. Abhinav Serrano who has a chronic history of heavy alcohol abuse. He admits to a 6-pack a day but the actual estimates are more like a whole case and occasionally some wine. He has done this since his teenage years apparently and suffers, in addition to alcoholism, from hypertension, anxiety, Nunez's esophagus and has been in the hospital at least one time for alcohol withdrawal. He has been more depressed lately due to the loss his father and apparently became very weak after excessive drinking, could not get up from the toilet, called his and fell, had trouble getting up, was very confused and apparently had stopped all of his medications slightly before that and was brought into the ER. He was nauseated, vomiting and was admitted back on the and was put through an alcohol detoxification program from which he emerged unfortunately in a confused state. Dr. Bee was concerned about some of his confabulatory tendencies, perhaps a little bit of nystagmus on extremes of gaze, his lethargy and asked neurology to take a look at him with the specific question in mind being whether this was a Korsakoff psychosis with some elements of Wernicke's as well. He has had an MRI of the brain which does not show any changes in the mammillothalamic pathways does show a little bit of atrophy, otherwise is pretty normal appearing and EEG is normal and an ammonia level done now is down to normal, whereas on admission was 39. Basic labs on admission were certainly consistent with alcohol-induced hepatocellular dysfunction, but no other problems were found. In addition to the problems noted above, which include the Nunez's esophagus, he does have a cardiomyopathy, hypertension, anxiety, osteoarthritis and surgically has had an endoscopy and wisdom tooth removal. FAMILY HISTORY: Positive for carcinoma, unspecified type. SOCIAL HISTORY: Reveals him to be a daily smoker, daily drinker, the magnitude of which is variable at least half a case of beer perhaps more and more likely more. He is employed or was employed, but it is not clear exactly where he works as he was confabulating with Dr. Bee about his occupations. IMMUNIZATIONS: Up-to-date or as up-to-date as we can establish. No history of multiple drug resistant organisms. ALLERGIES: He has no known allergies. MEDICATIONS: He reported no home medications and was taking nothing apparently on arrival. REVIEW OF SYSTEMS: Could not be obtained on admission because of his lethargy and confusion. PHYSICAL EXAMINATION: VITAL SIGNS: Blood pressure 135/97, pulse was 119, respirations were 16 and he was confused, lethargic, weak and no cranial deformities. No nystagmus was noted or described on admission. LUNGS: Clear. HEART: Had a regular rhythm with no abdominal distention, no evidence for ascites. EXTREMITIES: Free of edema and had good pulses. NEUROLOGIC: Today neurologically he is sitting in bed. He has a very flat affect. He will not really engage with the examiner. Stares ahead at the TV and at a piece of paper that he appears to be trying to read yet is unable to do so. He knows he is in the hospital, cannot name the institution, does not know the year, does not know the month or the date and thinks he has seen me in the past whereas I do not believe he has, but beyond this I cannot get him to have any grandiose confabulatory tendencies. I do not see any nystagmus today. Facial motility and strength is normal. Facial sensation is normal. He has a fine tremor of the outstretched hands and there may be a little superimposed cerebellar dysmetria on finger to nose testing. Reflexes are hypoactive throughout. Toes are downgoing. No Hamzah's signs are seen. Muscle strength testing is normal within the limits of his cooperation and sensory examination probably shows a little vibratory loss but again is limited by his limited comprehension and cooperation levels. Basic laboratory studies on admission showed some hyponatremia and elevated transaminases, the lack of a significant degree of anemia and normal renal function. Toxicology screen showing extremely high alcohol level at 32. Coagulation studies were unremarkable. At this point, I am afraid we do not have any further suggestions. His thiamine, which was given in reasonable doses orally throughout his withdrawal, has now been switched intravenously and it may help in higher doses. I really cannot say this was or was not Korsakoff psychosis. We do not have the characteristic MRI findings. There is nothing to suggest nonconvulsive seizure activity or triphasic waves and his ammonia level was down. This may be an alcohol-induced encephalopathy due to neural damage and it is hard to tell how much of this is going to persist or when and if is going to improve. All we can do is offer the thiamine, tincture of time and possibly some rehabilitation efforts. I do not think neurology needs to see him on a regular basis at this point and I will sign off the case, but Dr. Vora will be around if any changes are noted. RUPA
--- NOTE | 2017-08-17 20:33 | Progress Note ---
Internal Med Progress Note Date of Service: Aug 17, 2017. Provider Documentation: SUBJECTIVE: remains confused , oriented to person only no fever or chills OBJECTIVE: Vital Signs-as noted below Exam: General-confused, disoriented Eyes-sclera non icteric , PERRLA /EOMI ENT-moist oral mucosa, normal oropharynx Neck-supple, trachea midline , no thyromegaly Lungs-clear to auscultate , no wheeze or rales Heart-regular , Tachycardic Abdomen-soft, non tender Extremities-no rash or deformity Neuro-confusion , able to tell his name and , does not know where he is at , can not recall any past event , making up events to fill the gaps in memories no focal weakness or paresthesia , significant gait instability Lab data as noted below. 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 -due to chronic alcoholism -which also contributes to Gait instability , Hypotension and Tachycardia pt is already been Thiamine and folic acid since admission will change thiamine to IV infusion Thiamine and Folic acid-wnl -wnl TSH CT head with out contrast show no intracranial pathology Neurology eval requested -appreciate input EEG -no sz activity MRI brain -wnl study possible persistent encephalopathy due to chronic excessive alcohol abuse ALCOHOL INTOXICATION : been a heavy drinker all his life per his -pt will drink continuously 12 narcisa or more Beer every day had Alcohol withdrawal seizure 2 yrs back -happened while he was driving and not drinking alcohol for few hours was at Alcohol rehab [facility] few years back , was Sober for 6-9 months , started to drink heavily again pt been treated with alcohol with drawl protocol since admission on 08/07/17 completed Gabapentin protocol , given liberal dose of Ativan still remains confused with episodes of agitation , hallucination Doubt symptoms are due to withdrawal -al most 9 days since last drink concern for Alcoholic encephalopathy Librium D/loren , PRN low dose Ativan for agitation SINUS TACHYCARDIA : due to alcoholic psychosis ? Continue home dose metoprolol 25 mg daily -PRN Ativan for agitation Echo : * The left ventricular systolic function is grossly normal on technically limited evaluation. * Regional wall motion cannot be assessed due to the tachycardia and technically inadequate images. * There is no significant valvular disease. Pneumonia CXR showed Persistent bibasilar and right perihilar opacities which favor bilateral pneumonia. Clinically improved blood cx no growth Procalcitonin wnl Change abx to levaquin PO- Elevated Liver Enzymes Mostly related to alcohol abuse AST 256, ALT 153 pn admission Liver enzymes trending down to near normal Monitor Liver enzymes Stable Hypokalemia corrected Hyponatremia Mostly related to alcohol and poor intake Continue monitor Depression Psych consulted-appreciate input recommend in patient alcohol rehab once clinically stable will need close follow up with out pt Psychiatrist / therapist to assess underlying depression and management Nunez's Esophagus Continue PPI Electrolytes imbalance stable Continue monitor HTN BP stable DVT ppx due to thrombocytopenia, no medical DVT prophylaxis, SCDs FULL CODE DISPOSITION : pt has significant function and cognitive decline persisted confusion and marked gait disturbance PT/OT eval appreciated recommend rehab -referral made to [facility] Vital Signs: Date Time Temp Pulse Resp B/P (MAP) Pulse Ox O2 Delivery O2 Flow Rate FiO2 08/18/17 18:14 36.6 103 16 125/82 (96) 95 Room Air 08/18/17 16:05 Room Air 08/18/17 16:00 36.7 102 20 95/68 (77) 93 Room Air 08/18/17 15:26 36.4 110 16 96 08/18/17 12:01 Room Air 08/18/17 11:58 36.4 110 16 114/79 (91) 96 Room Air 08/18/17 08:05 Room Air 08/18/17 07:34 37.1 99 15 122/88 (99) 95 Room Air 08/18/17 04:15 37.2 108 16 113/81 (92) 96 Room Air 08/18/17 04:00 Room Air 08/18/17 00:01 Room Air 08/17/17 23:45 37.1 100 16 109/78 (88) 94 Room Air 08/17/17 22:41 36.7 112 144/102 (116) Lab Results: Results Past 24 Hours Test 08/18/17 06:07 Range/Units Sodium Level 138 136-145 mmol/L Potassium Level 3.6 3.5-5.1 mmol/L Chloride Level 102 98-107 mmol/L Carbon Dioxide Level 29 21-32 mmol/L Anion Gap 7.0 3-11 mmol/L Blood Urea Nitrogen 9 7-18 mg/dl Creatinine 0.66 0.60-1.40 mg/dl Est Creatinine Clear Calc Drug Dose 108.6 ml/min Estimated GFR () 129.7 Estimated GFR (Non- 111.9 BUN/Creatinine Ratio 13.9 10-20 Random Glucose 120 70-99 mg/dl Calcium Level 9.5 8.5-10.1 mg/dl
[2017-08-18] VITALS (7 sets, daily range): BP systolic 95–125; BP diastolic 68–88; PULSE 99–110; TEMP 36.4–37.2; O2SAT 93–96
[2017-08-18] MEDS ORDERED: CHLORDIAZEPOXIDE 25MG 3RD DOSE PO SCH
[2017-08-18] MEDS ORDERED: SENNA 8.6 MG TAB PO ONE (04:45)
[2017-08-18] MEDS ORDERED: POLYETHYLENE (MIRALAX) 17 GM PACK PO ONE (04:45)
[2017-08-18] MEDS ORDERED: POLYETHYLENE (MIRALAX) 17 GM PACK PO PRN (04:45)
[2017-08-18 07:04] LABS: BUN/CREATININE RATIO 13.9 (10-20); CALCIUM 9.5 mg/dl (8.5-10.1); CREATININE 0.66 mg/dl (0.60-1.40); POTASSIUM 3.6 mmol/L (3.5-5.1)
[2017-08-18] MEDS: LEVOFLOXACIN 500 MG TAB PO SCH (07:53)
[2017-08-18] MEDS: METOPROLOL SUCC 25MG EXT REL TAB PO SCH (07:53)
[2017-08-18] MEDS: PANTOprazole SOD 40 MG TAB PO SCH (07:53)
[2017-08-18] MEDS: ACETAMINOPHEN 325 MG TAB PO PRN (07:55)
[2017-08-18] MEDS: THIAMINE HCL INJ 500 MG in SODIUM CHLORIDE 0.9% 100ML 100 ML IV SCH (09:00)
--- NOTE | 2017-08-18 20:47 | Progress Note ---
Internal Med Progress Note Date of Service: Aug 18, 2017. Provider Documentation: SUBJECTIVE: less confused today able to have conversation OBJECTIVE: Vital Signs-as noted below Exam: General-confused, disoriented Eyes-sclera non icteric , PERRLA /EOMI ENT-moist oral mucosa, normal oropharynx Neck-supple, trachea midline , no thyromegaly Lungs-clear to auscultate , no wheeze or rales Heart-regular , Tachycardic Abdomen-soft, non tender Extremities-no rash or deformity Neuro-confusion , able to tell his name and , does not know where he is at , can not recall any past event , making up events to fill the gaps in memories no focal weakness or paresthesia , significant gait instability Lab data as noted below. ASSESSMENT & PLAN: CONFUSION /ENCEPHALOPATHY : possible due to alcoholic encephalopathy completed Detox process with Neurontin protocol neurology consulted does not believe pt's symptom suggestive of Wernicke Korsakoff psychosis /syndrome pt is already been Thiamine and folic acid since admission given high dose thiamine IV infusion X3 days with some improvement of confusion Thiamine and Folic acid-wnl -wnl TSH CT head with out contrast show no intracranial pathology Neurology eval requested -appreciate input EEG -no sz activity MRI brain -wnl study possible persistent encephalopathy due to chronic excessive alcohol abuse pt will need life long Thiamine and Folic supplement and absolute abstinence form alcohol ALCOHOL INTOXICATION /ALCOHOL ABUSE : been a heavy drinker all his life per his -pt will drink continuously 12 narcisa or more Beer every day had Alcohol withdrawal seizure 2 yrs back -happened while he was driving and not drinking alcohol for few hours was at Alcohol rehab [employer] few years back , was Sober for 6-9 months , started to drink heavily again pt been treated with alcohol with drawl protocol since admission on 08/07/17 completed Gabapentin protocol , given liberal dose of Ativan still remains confused Doubt symptoms are due to withdrawal -al most 9 days since last drink concern for Alcoholic encephalopathy Librium D/loren , PRN low dose Ativan for agitation Pneumonia CXR showed Persistent bibasilar and right perihilar opacities which favor bilateral pneumonia. Clinically improved blood cx no growth Procalcitonin wnl Change abx to levaquin PO-completed 5 days course will D/c Abx Elevated Liver Enzymes Mostly related to alcohol abuse/alcoholic hepatitis AST 256, ALT 153 pn admission Liver enzymes trending down to normal Depression Psych consulted-appreciate input -unable to assess mood disorder due to intoxication /alcohol abuse /encephalopathy recommend in patient alcohol rehab once clinically stable will need close follow up with out pt Psychiatrist / therapist to assess underlying depression and management Nunez's Esophagus Continue PP DVT ppx SCD and teds ambulate FULL CODE DISPOSITION : pt has significant function and cognitive decline persisted confusion and marked gait disturbance PT/OT eval appreciated recommend rehab -referral made to [facility] possible transfer to rehab in next 1-2 days Vital Signs: Date Time Temp Pulse Resp B/P (MAP) Pulse Ox O2 Delivery O2 Flow Rate FiO2 08/18/17 18:14 36.6 103 16 125/82 (96) 95 Room Air 08/18/17 16:05 Room Air 08/18/17 16:00 36.7 102 20 95/68 (77) 93 Room Air 08/18/17 15:26 36.4 110 16 96 08/18/17 12:01 Room Air 08/18/17 11:58 36.4 110 16 114/79 (91) 96 Room Air 08/18/17 08:05 Room Air 08/18/17 07:34 37.1 99 15 122/88 (99) 95 Room Air 08/18/17 04:15 37.2 108 16 113/81 (92) 96 Room Air 08/18/17 04:00 Room Air 08/18/17 00:01 Room Air 08/17/17 23:45 37.1 100 16 109/78 (88) 94 Room Air 08/17/17 22:41 36.7 112 144/102 (116) Lab Results: Results Past 24 Hours Test 08/18/17 06:07 Range/Units Sodium Level 138 136-145 mmol/L Potassium Level 3.6 3.5-5.1 mmol/L Chloride Level 102 98-107 mmol/L Carbon Dioxide Level 29 21-32 mmol/L Anion Gap 7.0 3-11 mmol/L Blood Urea Nitrogen 9 7-18 mg/dl Creatinine 0.66 0.60-1.40 mg/dl Est Creatinine Clear Calc Drug Dose 108.6 ml/min Estimated GFR () 129.7 Estimated GFR (Non- 111.9 BUN/Creatinine Ratio 13.9 10-20 Random Glucose 120 70-99 mg/dl Calcium Level 9.5 8.5-10.1 mg/dl
[2017-08-18] MEDS ORDERED: PRT40 PO (20:49)
[2017-08-18] MEDS ORDERED: FLV1 PO (20:49)
[2017-08-18] MEDS ORDERED: THM100 PO (20:49)
[2017-08-18] MEDS ORDERED: TPRSR25 PO (20:49)
--- NOTE | 2017-08-18 20:51 | Discharge Instructions ---
Discharge Instructions Date of Service Aug 18, 2017. Admission Reason for Admission: Alcohol Use Discharge Discharge Diagnosis / Problem: ALCHOHOL ABUSE /METABOLIC ENCEPHALOPATHY Discharge Goals Goal(s): Decrease discomfort, Improve function, Increase independence, Improve disease control, Diagnostic testing, Therapeutic intervention Activity Recommendations Activity Level: Assistance Required Therapies: Physical Therapy, Occupational Therapy . Additional Information Patient informed of condition: Yes Advance Directives: No DNR: No Level of Care: Acute Rehab Communicable Disease: No Prognosis: Stable Barr Catheter: No Instructions / Follow-Up Instructions / Follow-Up FOLLOW UP WITH FAMILY PHYSICIAN AFTER DISCHARGE FORM REHAB IT IS VERY IMPORTANT TO SEEK HELP FOR ALCOHOL DEPENDENCY AND ALCOHOL REHAB FOLLOW UP WITH PSYCHIATRY OUT PATIENT TO ADDRESS DEPRESSION AND ANXIETY DISORDER Current Hospital Diet Patient's current hospital diet: AHA Diet (Heart Healthy) Discharge Diet Recommended Diet: AHA Diet (Heart Healthy) Pending Studies Studies pending at discharge: no Laboratory Results Hemoglobin A1c Test 08/07/17 05:27 Range/Units Estimated Average Glucose 123 mg/dl Hemoglobin A1c 5.9 H 4.5-5.6 % Medical Emergencies . Who to Call and When: Medical Emergencies: If at any time you feel your situation is an emergency, please call 911 immediately. . Non-Emergent Contact Non-Emergency issues call your: Primary Care Provider . . "Provider Documentation" section prepared by Judy Bee. . Core Measure Problem Core Measures: None
[2017-08-19] MEDS ORDERED: CHLORDIAZEPOXIDE 10MG 4TH DOSE PO SCH (06:00)
[2017-08-19 07:35] VITALS: BP 121/86; PULSE 101; TEMP 36.8; O2SAT 95
[2017-08-19 10:50] VITALS: O2SAT 95
[2017-08-19] MEDS: SENNA 8.6 MG TAB PO SCH (10:52)
[2017-08-19] MEDS: METOPROLOL SUCC 25MG EXT REL TAB PO SCH (10:53)
[2017-08-19] MEDS: PANTOprazole SOD 40 MG TAB PO SCH (10:53)
[2017-08-19] MEDS: THIAMINE HCL 100 MG TAB PO SCH (10:54)
[2017-08-19 16:23] VITALS: BP 124/86; PULSE 104; TEMP 36.7; O2SAT 96
--- NOTE | 2017-08-19 18:56 | Progress Note ---
Internal Med Progress Note Date of Service: Aug 19, 2017. Provider Documentation: SUBJECTIVE: awake and alert able to have normal conversation no confusion noted does not recall prior events feels weak and tired willing to go to rehab to improve his strength OBJECTIVE: Vital Signs-as noted below Exam: General-awake and alert , no confusion noted Eyes-sclera non icteric , PERRLA /EOMI ENT-moist oral mucosa, normal oropharynx Neck-supple, trachea midline , no thyromegaly Lungs-clear to auscultate , no wheeze or rales Heart-regular , Tachycardic Abdomen-soft, non tender Extremities-no rash or deformity Neuro-appropriate mentation , no confusion , does not recall past few days while in hospital no focal deficit Lab data as noted below. ASSESSMENT & PLAN: CONFUSION /ENCEPHALOPATHY : resolved , more appropriate , able to have normal conversation possible due to alcoholic encephalopathy cont PO thiamine /folic acid given high dose thiamine IV infusion X3 days with some improvement of confusion Thiamine and Folic acid-wnl -wnl TSH CT head with out contrast show no intracranial pathology Neurology eval requested -appreciate input EEG -no sz activity MRI brain -wnl study pt will need life long Thiamine and Folic supplement and absolute abstinence form alcohol ALCOHOL INTOXICATION /ALCOHOL ABUSE : been a heavy drinker all his life per his -pt will drink continuously 12 narcisa or more Beer every day had Alcohol withdrawal seizure 2 yrs back -happened while he was driving and not drinking alcohol for few hours was at Alcohol rehab [facility] few years back , was Sober for 6-9 months , started to drink heavily again pt been treated with alcohol with drawl protocol since admission on 08/07/17 completed Gabapentin protocol , given liberal dose of Ativan no evidence of withdrawal now no anxiety or agitation pt is counselled for alcohol abstinence and alcohol rehab Pneumonia CXR showed Persistent bibasilar and right perihilar opacities which favor bilateral pneumonia. Clinically improved blood cx no growth Procalcitonin wnl was on levaquin PO-completed 5 days course Abx D/loren Elevated Liver Enzymes Mostly related to alcohol abuse/alcoholic hepatitis AST 256, ALT 153 pn admission Liver enzymes trending down to normal Depression Psych consulted-appreciate input -unable to assess mood disorder due to intoxication /alcohol abuse /encephalopathy recommend in patient alcohol rehab once clinically stable will need close follow up with out pt Psychiatrist / therapist to assess underlying depression and management Nunez's Esophagus Continue PP DVT ppx SCD and teds ambulate FULL CODE DISPOSITION : alert and appropriate conversing , not requiring sedation PT/OT eval appreciated recommend rehab -referral made to [facility] needs insurance auth possible discharge to [facility] tomorrow Vital Signs: Date Time Temp Pulse Resp B/P (MAP) Pulse Ox O2 Delivery O2 Flow Rate FiO2 08/20/17 16:00 92 Room Air 08/20/17 15:36 36.4 113 18 132/89 (103) 92 Room Air 08/20/17 09:44 101 19 145/102 (116) 08/20/17 09:40 94 Room Air 08/20/17 07:22 36.8 98 16 134/91 (105) 94 Room Air 08/20/17 00:00 Room Air 08/19/17 23:08 36.8 104 20 136/90 (105) 95 Room Air 08/19/17 20:00 Room Air
[2017-08-19] MEDS: LORAZEPAM INJ 0.5 MG in SYRINGE 0.75 ML IV PRN (19:08)
[2017-08-19 23:08] VITALS: BP 136/90; PULSE 104; TEMP 36.8; O2SAT 95
[2017-08-20] VITALS (7 sets, daily range): BP systolic 114–145; BP diastolic 78–102; PULSE 98–113; TEMP 36.4–36.8; O2SAT 92–95
[2017-08-20] MEDS: LORAZEPAM INJ 0.5 MG in SYRINGE 0.75 ML IV PRN ×2 (03:25→12:12)
[2017-08-20] MEDS: PANTOprazole SOD 40 MG TAB PO SCH (09:35)
[2017-08-20] MEDS: SENNA 8.6 MG TAB PO SCH (09:36)
[2017-08-20] MEDS: THIAMINE HCL 100 MG TAB PO SCH (09:36)
[2017-08-20] MEDS: METOPROLOL SUCC 25MG EXT REL TAB PO SCH (09:38)
[2017-08-20] MEDS: ACETAMINOPHEN 325 MG TAB PO PRN (15:54)
--- NOTE | 2017-08-20 19:57 | Progress Note ---
Internal Med Progress Note Date of Service: Aug 20, 2017. Provider Documentation: SUBJECTIVE: awake and alert , having episodes of confusion thinks that he is in [place] then after re directing , able to correct him self still significant weakness , and gait disturbance , requiring 2 person assist to transfer OBJECTIVE: Vital Signs-as noted below Exam: General-awake and alert , no confusion noted Eyes-sclera non icteric , PERRLA /EOMI ENT-moist oral mucosa, normal oropharynx Neck-supple, trachea midline , no thyromegaly Lungs-clear to auscultate , no wheeze or rales Heart-regular , Tachycardic Abdomen-soft, non tender Extremities-no rash or deformity Neuro-appropriate mentation , no confusion , does not recall past few days while in hospital no focal deficit Lab data as noted below. ASSESSMENT & PLAN: CONFUSION /ENCEPHALOPATHY : resolved , more appropriate , able to have normal conversation possible due to alcoholic encephalopathy cont PO thiamine /folic acid given high dose thiamine IV infusion X3 days with some improvement of confusion Thiamine and Folic acid-wnl -wnl TSH CT head with out contrast show no intracranial pathology Neurology eval requested -appreciate input EEG -no sz activity MRI brain -wnl study pt will need life long Thiamine and Folic supplement and absolute abstinence form alcohol ALCOHOL INTOXICATION /ALCOHOL ABUSE : been a heavy drinker all his life per his -pt will drink continuously 12 narcisa or more Beer every day had Alcohol withdrawal seizure 2 yrs back -happened while he was driving and not drinking alcohol for few hours was at Alcohol rehab [employer] [facility] few years back , was Sober for 6-9 months , started to drink heavily again pt been treated with alcohol with drawl protocol since admission on 08/07/17 completed Gabapentin protocol , given liberal dose of Ativan no evidence of withdrawal now no anxiety or agitation pt is counselled for alcohol abstinence and alcohol rehab Pneumonia CXR showed Persistent bibasilar and right perihilar opacities which favor bilateral pneumonia. Clinically improved blood cx no growth Procalcitonin wnl was on levaquin PO-completed 5 days course Abx D/loren Elevated Liver Enzymes Mostly related to alcohol abuse/alcoholic hepatitis AST 256, ALT 153 pn admission Liver enzymes trending down to normal Depression Psych consulted-appreciate input -unable to assess mood disorder due to intoxication /alcohol abuse /encephalopathy recommend in patient alcohol rehab once clinically stable will need close follow up with out pt Psychiatrist / therapist to assess underlying depression and management Nunez's Esophagus Continue PP DVT ppx SCD and teds ambulate FULL CODE DISPOSITION : alert and appropriate conversing , not requiring sedation PT/OT eval appreciated recommend rehab -referral made to [facility] needs insurance auth possible discharge to [facility] tomorrow updated over phone Vital Signs: Date Time Temp Pulse Resp B/P (MAP) Pulse Ox O2 Delivery O2 Flow Rate FiO2 08/20/17 16:00 92 Room Air 08/20/17 15:36 36.4 113 18 132/89 (103) 92 Room Air 08/20/17 09:44 101 19 145/102 (116) 08/20/17 09:40 94 Room Air 08/20/17 07:22 36.8 98 16 134/91 (105) 94 Room Air 08/20/17 00:00 Room Air 08/19/17 23:08 36.8 104 20 136/90 (105) 95 Room Air
[2017-08-21 07:21] VITALS: BP 147/78; PULSE 104; TEMP 36.6; O2SAT 96
[2017-08-21] MEDS: SENNA 8.6 MG TAB PO SCH (08:54)
[2017-08-21] MEDS: PANTOprazole SOD 40 MG TAB PO SCH (08:54)
[2017-08-21] MEDS: METOPROLOL SUCC 25MG EXT REL TAB PO SCH (08:54)
[2017-08-21] MEDS: THIAMINE HCL 100 MG TAB PO SCH (08:55)
[2017-08-21] MEDS ORDERED: ATV/1 PO (09:28)
[2017-08-21] MEDS: LORAZEPAM INJ 0.5 MG in SYRINGE 0.75 ML IV PRN (10:58)
[2017-08-21 15:30] VITALS: O2SAT 94
[2017-08-21] MEDS: ACETAMINOPHEN 325 MG TAB PO PRN ×2 (15:30→21:52)
[2017-08-21 15:33] VITALS: BP 150/80; PULSE 115; TEMP 36.3; O2SAT 94
[2017-08-22 00:10] VITALS: BP 145/88; PULSE 106; TEMP 36.5; O2SAT 96
[2017-08-22 08:28] VITALS: BP 133/100; PULSE 109; TEMP 36.4; O2SAT 96
[2017-08-22] MEDS: SENNA 8.6 MG TAB PO SCH (08:37)
[2017-08-22] MEDS: METOPROLOL SUCC 25MG EXT REL TAB PO SCH (08:37)
[2017-08-22] MEDS: THIAMINE HCL 100 MG TAB PO SCH (08:37)
--- NOTE | 2017-08-22 10:28 | Progress Note ---
Internal Med Progress Note Date of Service: Aug 22, 2017. Provider Documentation: late entry pt seen on 08/21/17 SUBJECTIVE: still have problem recalling events no agitation awake and alert , conversing OBJECTIVE: Vital Signs-as noted below Exam: General-awake and alert , no confusion noted Eyes-sclera non icteric , PERRLA /EOMI ENT-moist oral mucosa, normal oropharynx Neck-supple, trachea midline , no thyromegaly Lungs-clear to auscultate , no wheeze or rales Heart-regular , Tachycardic Abdomen-soft, non tender Extremities-no rash or deformity Neuro-appropriate mentation , no confusion , does not recall past few days while in hospital no focal deficit Lab data as noted below. ASSESSMENT & PLAN: CONFUSION /ENCEPHALOPATHY : resolved , more appropriate , able to have normal conversation possible due to alcoholic encephalopathy cont PO thiamine /folic acid given high dose thiamine IV infusion X3 days with some improvement of confusion Thiamine and Folic acid-wnl -wnl TSH CT head with out contrast show no intracranial pathology Neurology eval requested -appreciate input EEG -no sz activity MRI brain -wnl study pt will need life long Thiamine and Folic supplement and absolute abstinence form alcohol ALCOHOL INTOXICATION /ALCOHOL ABUSE : been a heavy drinker all his life per his -pt will drink continuously 12 narcisa or more Beer every day had Alcohol withdrawal seizure 2 yrs back -happened while he was driving and not drinking alcohol for few hours was at Alcohol rehab [email or web address] few years back , was Sober for 6-9 months , started to drink heavily again pt been treated with alcohol with drawl protocol since admission on 08/07/17 completed Gabapentin protocol , given liberal dose of Ativan no evidence of withdrawal now no anxiety or agitation pt is counselled for alcohol abstinence and alcohol rehab Pneumonia CXR showed Persistent bibasilar and right perihilar opacities which favor bilateral pneumonia. Clinically improved blood cx no growth Procalcitonin wnl was on levaquin PO-completed 5 days course Abx D/loren Elevated Liver Enzymes Mostly related to alcohol abuse/alcoholic hepatitis AST 256, ALT 153 pn admission Liver enzymes trending down to normal Depression Psych consulted-appreciate input -unable to assess mood disorder due to intoxication /alcohol abuse /encephalopathy recommend in patient alcohol rehab once clinically stable will need close follow up with out pt Psychiatrist / therapist to assess underlying depression and management Nunez's Esophagus Continue PP DVT ppx SCD and teds ambulate FULL CODE DISPOSITION : alert and appropriate conversing , not requiring sedation PT/OT eval appreciated recommend rehab -referral made to [facility] pt denied acute rehab made referral for SNF , social service following for discharge planning Vital Signs: Date Time Temp Pulse Resp B/P (MAP) Pulse Ox O2 Delivery O2 Flow Rate FiO2 08/22/17 08:44 Room Air 08/22/17 08:28 36.4 109 20 133/100 (111) 96 Room Air 08/22/17 00:10 36.5 106 20 145/88 (107) 96 Room Air 08/22/17 00:00 Room Air 08/21/17 15:33 36.3 115 16 150/80 (103) 94 Room Air 08/21/17 15:30 94 Room Air
[2017-08-22] MEDS: PANTOprazole SOD 40 MG TAB PO SCH (10:30)
--- NOTE | 2017-08-22 12:01 | Progress Note ---
Internal Med Progress Note Date of Service: Aug 22, 2017. Provider Documentation: SUBJECTIVE: awake and alert , offers no complain mentions that his memory starts to come back no confusion , having appropriate conversation still feels off balance when getting up and attempt to walk to bathroom persisted generalized weakness Ok with going to rehab at [facility] if accepted OBJECTIVE: Vital Signs-as noted below Exam: General-awake and alert , no confusion noted Eyes-sclera non icteric , PERRLA /EOMI ENT-moist oral mucosa, normal oropharynx Neck-supple, trachea midline , no thyromegaly Lungs-clear to auscultate , no wheeze or rales Heart-regular , Tachycardic Abdomen-soft, non tender Extremities-no rash or deformity Neuro-AAO X3 , no confusion , no focal deficit Lab data as noted below. ASSESSMENT & PLAN: CONFUSION /ENCEPHALOPATHY : resolved , more appropriate , able to have normal conversation possible due to alcoholic encephalopathy -pt still has memory loss /recall of event difficulty cont PO thiamine /folic acid given high dose thiamine IV infusion X3 days Thiamine and Folic acid-wnl -wnl TSH CT head with out contrast show no intracranial pathology Neurology eval requested -appreciate input EEG -no sz activity MRI brain -wnl study pt will need life long Thiamine and Folic supplement and absolute abstinence form alcohol ALCOHOL INTOXICATION /ALCOHOL ABUSE : been a heavy drinker all his life per his -pt will drink continuously 12 narcisa or more Beer every day had Alcohol withdrawal seizure 2 yrs back -happened while he was driving and not drinking alcohol for few hours was at Alcohol rehab [facility] few years back , was Sober for 6-9 months , started to drink heavily again pt been treated with alcohol with drawl protocol since admission on 08/07/17 completed Gabapentin protocol , given liberal dose of Ativan no evidence of withdrawal now no anxiety or agitation pt is counselled for alcohol abstinence and alcohol rehab Pneumonia CXR showed Persistent bibasilar and right perihilar opacities which favor bilateral pneumonia. Clinically improved blood cx no growth Procalcitonin wnl was on levaquin PO-completed 5 days course Abx D/loren Elevated Liver Enzymes Mostly related to alcohol abuse/alcoholic hepatitis AST 256, ALT 153 pn admission Liver enzymes returned to normal Depression Psych consulted-appreciate input -unable to assess mood disorder due to intoxication /alcohol abuse /encephalopathy recommend in patient alcohol rehab once clinically stable will need close follow up with out pt Psychiatrist / therapist to assess underlying depression and management Nunez's Esophagus Continue PP DVT ppx SCD and teds ambulate FULL CODE DISPOSITION : alert and appropriate PT/OT eval appreciated recommend rehab -referral made to [facility] pt denied acute rehab made referral for SNF , social service following for discharge planning Medically stable to be transferred to SNF when accepted spoke with -Rohini Rudd updated , requests wheel chair van for transport , as worried about pt's balance being poor will not be able to transfer him by herself CM updated Vital Signs: Date Time Temp Pulse Resp B/P (MAP) Pulse Ox O2 Delivery O2 Flow Rate FiO2 08/22/17 08:44 Room Air 08/22/17 08:28 36.4 109 20 133/100 (111) 96 Room Air 08/22/17 00:10 36.5 106 20 145/88 (107) 96 Room Air 08/22/17 00:00 Room Air 08/21/17 15:33 36.3 115 16 150/80 (103) 94 Room Air 08/21/17 15:30 94 Room Air
[2017-08-22 15:56] VITALS: BP 106/76; PULSE 111; TEMP 36.6; O2SAT 93
[2017-08-22 16:00] VITALS: O2SAT 93
[2017-08-22] MEDS: ACETAMINOPHEN 325 MG TAB PO PRN (23:23)
[2017-08-23 00:11] VITALS: BP 127/89; PULSE 98; TEMP 36.9; O2SAT 94
[2017-08-23] MEDS: LORAZEPAM INJ 0.5 MG in SYRINGE 0.75 ML IV PRN ×4 (03:56→21:42)
[2017-08-23] MEDS: ACETAMINOPHEN 325 MG TAB PO PRN ×3 (05:09→23:32)
[2017-08-23] MEDS: SENNA 8.6 MG TAB PO SCH (08:31)
[2017-08-23] MEDS: METOPROLOL SUCC 25MG EXT REL TAB PO SCH (08:31)
[2017-08-23] MEDS: THIAMINE HCL 100 MG TAB PO SCH (08:31)
[2017-08-23] MEDS: PANTOprazole SOD 40 MG TAB PO SCH (08:31)
[2017-08-23 08:39] VITALS: BP 137/89; PULSE 101; TEMP 36.8; O2SAT 94
[2017-08-23 16:03] VITALS: BP 123/86; PULSE 104; TEMP 36.8; O2SAT 95
--- NOTE | 2017-08-23 18:31 | Progress Note ---
Internal Med Progress Note Date of Service: Aug 23, 2017. Provider Documentation: SUBJECTIVE: sitting on the chair afebrile no sob eating ok awaiting rehab placement OBJECTIVE: Vital Signs-as noted below Exam: General-alert and awake and not in distress ENT- normal hearing Neck-no neck masses Lungs-cta b/l no wheezing or crackles Heart-s1 and s2 heard regular rate and rhythm no murmurs Abdomen-soft BS present non tender no distension Extremities-no edema no erythema Neuro-alert and awake moves extremities Lab data as noted below. ASSESSMENT & PLAN: CONFUSION /ENCEPHALOPATHY : resolved Most likely due to alcoholic encephalopathy -pt still has memory loss /recall of event difficulty will continue PO thiamine /folic acid received high dose thiamine IV infusion X3 days Thiamine and Folic acid-wnl normal TSH CT head with out contrast show no intracranial pathology Seen by Neurology -appreciate input EEG -unremarkable MRI brain -unremarkable pt will need life long Thiamine and Folic supplement and absolute abstinence form alcohol ALCOHOL INTOXICATION /ALCOHOL ABUSE : been a heavy drinker all his life completed gabapentin protocol await rehab placement Pneumonia CXR showed Persistent bibasilar and right perihilar opacities which favor bilateral pneumonia. completed levaquin course Elevated Liver Enzymes Mostly related to alcohol abuse/alcoholic hepatitis AST 256, ALT 153 pn admission Liver enzymes returned to normal Depression appreciate psychiatry inputs recommend in patient alcohol rehab Nunez's Esophagus Continue PP DVT ppx SCD and teds ambulate FULL CODE DISPOSITION : await placement social service for d/c planning Vital Signs: Date Time Temp Pulse Resp B/P (MAP) Pulse Ox O2 Delivery O2 Flow Rate FiO2 08/23/17 16:03 36.8 104 18 123/86 (98) 95 Room Air 08/23/17 08:39 36.8 101 20 137/89 (105) 94 Room Air 08/23/17 08:20 Room Air 08/23/17 00:11 36.9 98 20 127/89 (102) 94 Room Air 08/23/17 00:00 Room Air
[2017-08-24 00:22] VITALS: BP 135/92; PULSE 98; TEMP 36.5; O2SAT 94
[2017-08-24] MEDS: ACETAMINOPHEN 325 MG TAB PO PRN (04:37)
[2017-08-24 07:03] VITALS: BP 134/91; PULSE 109; TEMP 36.7; O2SAT 94
[2017-08-24] MEDS: THIAMINE HCL 100 MG TAB PO SCH (08:30)
[2017-08-24] MEDS: SENNA 8.6 MG TAB PO SCH (08:30)
[2017-08-24] MEDS: METOPROLOL SUCC 25MG EXT REL TAB PO SCH (08:30)
[2017-08-24] MEDS: PANTOprazole SOD 40 MG TAB PO SCH (08:30)
[2017-08-24] MEDS: LORAZEPAM INJ 0.5 MG in SYRINGE 0.75 ML IV PRN (09:01)
[2017-08-24] MEDS ORDERED: FLV1 PO (14:13)
[2017-08-24] MEDS ORDERED: THM100 PO (14:13)
[2017-08-24] MEDS ORDERED: ATV/1 PO (14:13)
[2017-08-24] MEDS ORDERED: PRT40 PO (14:13)
[2017-08-24] MEDS ORDERED: TPRSR25 PO (14:13)
[2017-08-24] MEDS ORDERED: MULT-1042 PO (14:13)
[2017-08-24] MEDS ORDERED: LORAZEPAM 1 MG TAB PO PRN (14:15)
--- NOTE | 2017-08-24 14:15 | Progress Note ---
Internal Med Progress Note Date of Service: Aug 24, 2017. Provider Documentation: SUBJECTIVE: Seems little anxious eating ok denies any pain o cough afebrile OBJECTIVE: Vital Signs-as noted below Exam: General-alert and awake and not in distress ENT- normal hearing Neck-no neck masses Lungs-cta b/l no wheezing or crackles Heart-s1 and s2 heard regular rate and rhythm no murmurs Abdomen-soft BS present non tender no distension Extremities-no edema no erythema Neuro-alert and awake moves extremities Lab data as noted below. ASSESSMENT & PLAN: CONFUSION /ENCEPHALOPATHY : resolved Most likely due to alcoholic encephalopathy -pt still has memory loss /recall of event difficulty will continue PO thiamine /folic acid received high dose thiamine IV infusion X3 days Thiamine and Folic acid-wnl normal TSH CT head with out contrast show no intracranial pathology Seen by Neurology -appreciate input EEG -unremarkable MRI brain -unremarkable pt will need life long Thiamine and Folic supplement and absolute abstinence form alcohol stable currently ALCOHOL INTOXICATION /ALCOHOL ABUSE : been a heavy drinker all his life completed gabapentin protocol plan for rehab today. Pneumonia CXR showed Persistent bibasilar and right perihilar opacities which favor bilateral pneumonia. completed Levaquin course Elevated Liver Enzymes Mostly related to alcohol abuse/alcoholic hepatitis AST 256, ALT 153 pn admission Liver enzymes returned to normal Depression appreciate psychiatry inputs recommend in patient alcohol rehab Nunez's Esophagus Continue PP DVT ppx SCD and teds ambulate FULL CODE DISPOSITION : plan for rehab today Vital Signs: Date Time Temp Pulse Resp B/P (MAP) Pulse Ox O2 Delivery O2 Flow Rate FiO2 08/24/17 07:20 Room Air 08/24/17 07:03 36.7 109 20 134/91 (105) 94 Room Air 08/24/17 00:22 36.5 98 18 135/92 (106) 94 Room Air 08/23/17 23:35 Room Air 08/23/17 16:03 36.8 104 18 123/86 (98) 95 Room Air 08/23/17 16:00 Room Air
--- NOTE | 2017-08-24 14:21 | Discharge Summary ---
Discharge Summary Date of Service Aug 24, 2017. Discharge Summary Admission Date: Aug 07, 2017 at 06:40 Discharge Date: Aug 24, 2017 Discharge Disposition: Rehab Principal Diagnosis: CONFUSION /ENCEPHALOPATHY - alcoholic encephalopathy Pneumonia Secondary Diagnoses/Problems: 1) Anxiety Status: Chronic (2) Nunez esophagus Status: Chronic (3) History of cardiomyopathy Status: Chronic (4) HTN (hypertension) Status: Chronic (5) Osteoarthritis Status: Chronic Consultations: psych Medication Reconciliation New Medications: Lorazepam (Ativan) 1 Mg Tab 1 MG PO Q6H PRN for Anxiety/Insomnia, #30 TAB Multiple Vitamins W/ Minerals (Multi Vitamin and Mineral) 1 Tab Tab 1 TAB PO DAILY, #30 2 Refills Folic Acid (Folic Acid) 1 Mg Tab 1 MG PO QAM for 30 Days, #30 TAB Metoprolol Succinate (Metoprolol Succinate ER) 25 Mg Tabcr 25 MG PO QAM for 30 Days, #30 TABS 2 Refills Pantoprazole (Pantoprazole Sodium) 40 Mg Tab 40 MG PO QAM for 30 Days, #30 TAB Thiamine HCl (Vitamin B-1) 100 Mg Tab 100 MG PO QAM for 30 Days, #30 TAB Admission Information HPI (per Admitting provider): This is a 52 year old male with a PMH of HTN, anxiety, Nunez's esophagus and a hx. of alcohol abuse, alcoholism, presents after being brought in by his for excessive alcohol use and weakness. Patient has been drinking at least a 12 pack daily as per . He has been more depressed lately due to the loss of his father. One day prior to arrival, he was very weak and needed help getting up from the toilet so he called his . A few hours later, he fell and needed help getting up. He has been slightly confused. As per , he stopped taking his blood pressure medications (stopped all of his meds). During exam, patient does not recall what brought him to the ER; he denies pain. +nauseous during exam and had a vomiting episode earlier in the ED. No fevers/chills/illness noted. Physical Exam (per Admitting): General Appearance: + pertinent finding (+confused, lethargic, weak) Head: normocephalic, atraumatic Respiratory/Chest: chest non-tender, lungs clear, normal breath sounds, no respiratory distress, no accessory muscle use Cardiovascular: no edema, no gallop, no JVD, no murmur, normal peripheral pulses, + tachycardia Abdomen/GI: normal bowel sounds, soft, + tenderness (epigastric pain) Extremities/Musculoskelatal: no calf tenderness, normal capillary refill, no pedal edema Neurologic/Psych: + pertinent finding (+weakness, tremulousness, disoriented , confused, does not recall what happened) Hospital Course CONFUSION /ENCEPHALOPATHY : resolved Most likely due to alcoholic encephalopathy -pt still has memory loss /recall of event difficulty will continue PO thiamine /folic acid received high dose thiamine IV infusion X3 days Thiamine and Folic acid-wnl normal TSH CT head with out contrast show no intracranial pathology Seen by Neurology -appreciate input EEG -unremarkable MRI brain -unremarkable pt will need life long Thiamine and Folic supplement and absolute abstinence form alcohol stable currently ALCOHOL INTOXICATION /ALCOHOL ABUSE : been a heavy drinker all his life completed gabapentin protocol plan for rehab today. Pneumonia CXR showed Persistent bibasilar and right perihilar opacities which favor bilateral pneumonia. completed Levaquin course Elevated Liver Enzymes Mostly related to alcohol abuse/alcoholic hepatitis AST 256, ALT 153 pn admission Liver enzymes returned to normal Depression appreciate psychiatry inputs recommend in patient alcohol rehab Nunez's Esophagus Continue PP DVT ppx SCD and teds ambulate FULL CODE DISPOSITION : plan for rehab today Total time spent on discharge = 40MINUTES This includes examination of the patient, discharge planning, medication reconciliation, and communication with other providers. Discharge Instructions Discharge Instructions Date of Service Aug 24, 2017. Admission Reason for Admission: Alcohol Use Discharge Discharge Diagnosis / Problem: alocholic encephlapthy, pneumonia Discharge Goals Goal(s): Decrease discomfort, Improve function Activity Recommendations Activity Level: Up Ad Tanya Therapies: Physical Therapy, Occupational Therapy . Additional Information Patient informed of condition: Yes Advance Directives: Yes DNR: No Level of Care: Acute Rehab Communicable Disease: No Prognosis: Stable Barr Catheter: No Instructions / Follow-Up Instructions / Follow-Up FOLLOWUP WITH FAMILY DOCTOR IN ONE WEEK STRONGLY ADVICE ABSTINENCE FORM ALCOHOL RECOMMEND ALCOHOL INPATIENT REHAB TO TAKE MEDICATIONS REGULARLY PRESCRIBED Current Hospital Diet Patient's current hospital diet: AHA Diet (Heart Healthy) Discharge Diet Recommended Diet: AHA Diet (Heart Healthy) Pending Studies Studies pending at discharge: no Physician Orders On Transfer Special Precautions: FALL PRECAUTIONS Vital Signs: EVERY 8HRS Laboratory Results Hemoglobin A1c Test 08/07/17 05:27 Range/Units Estimated Average Glucose 123 mg/dl Hemoglobin A1c 5.9 H 4.5-5.6 % Medical Emergencies . Who to Call and When: Medical Emergencies: If at any time you feel your situation is an emergency, please call 911 immediately. . Non-Emergent Contact Non-Emergency issues call your: Primary Care Provider . .
[2017-08-24 14:29] VITALS: BP 134/91; PULSE 109; TEMP 36.7; O2SAT 94
== END 2017-08-24 19:05 | DRG 896 ==
LOC: EDBD 04:50 → C.EDA 04:50 → C.2T 06:40 → ENRESERV 07:33 → C.2T 08:03 → UNDOADMIN 08:03 → C.2T 08-16 18:08 → ENRESERV 08-18 15:49 → C.MS4W 08-18 18:09
PROVIDERS: ADMIT Family Medicine; ATTEND Internal Medicine
DX: F10.221 Alcohol dependence with intoxication delirium (principal); J18.9 Pneumonia, unspecified organism; E87.1 Hypo-osmolality and hyponatremia; I42.9 Cardiomyopathy, unspecified; G31.2 Degeneration of nervous system due to alcohol; K22.70 Barrett's esophagus without dysplasia; I10 Essential (primary) hypertension; F17.200 Nicotine dependence, unspecified, uncomplicated; R06.03 Acute respiratory distress; E87.6 Hypokalemia; D69.6 Thrombocytopenia, unspecified

== ENCOUNTER → 2017-08-25 | Outpatient (CLI) | payer BC ==
[~2017-08-25] MED LIST changes: -ASPEC81 PO; +ATV/1 PO; -LOSA25TA18 PO; -LPR25 PO; +MULT-1042 PO; -MULT-506 PO; -PRLSR20 PO; +PRT40 PO; -SERT50TA PO; +TPRSR25 PO
[2017-08-25 09:42] LABS: BASO % 0.8 %; BASO ABS # 0.06 K/uL (0-0.2); COMPLETE YES; EOS % 0.9 %; HEMATOCRIT 41.3 % (42-52); IG% 0.3 %; LYMPH % 27.1 %; LYMPH ABS # 2.12 K/uL (1.2-3.4); MEAN CORPUSCULAR HEMOGLOBIN 33.6 pg (25-34); MEAN CORPUSCULAR HGB CONC 33.9 g/dl (32-36); MEAN PLATELET VOLUME 10.7 fL (7.4-10.4); MONO % 14.8 %; NEUT % 56.1 %; PLATELET COUNT 376 K/uL (130-400); RED BLOOD COUNT 4.17 M/uL (4.7-6.1); WHITE BLOOD COUNT 7.83 K/uL (4.8-10.8)
[2017-08-25 10:01] LABS: BLOOD UREA NITROGEN 9 mg/dl (7-18); BUN/CREATININE RATIO 16.2 (10-20); CALCIUM 9.3 mg/dl (8.5-10.1); CARBON DIOXIDE 27 mmol/L (21-32); CHLORIDE 103 mmol/L (98-107); CREATININE 0.55 mg/dl (0.60-1.40); GLUCOSE 89 mg/dl (70-99); POTASSIUM 3.8 mmol/L (3.5-5.1); SODIUM 138 mmol/L (136-145)
[2017-08-25 10:02] LABS: ALT/SGPT 57 U/L (12-78)
[2017-08-25 10:04] LABS: ALB/GLOB RATIO 0.9 (0.9-2); ALKALINE PHOSPHATASE 81 U/L (45-117); AST/SGOT 32 U/L (15-37)
== END ==
LOC: C.LABUPNIT 08:47
PROVIDERS: ATTEND Nurse Practitioner Family
DX: I42.9 Cardiomyopathy, unspecified (principal)

== ENCOUNTER → 2017-08-28 | Outpatient (CLI) | payer BC ==
[2017-08-28 08:27] LABS: PROTHROMBIN TIME (PATIENT) 10.3 SECONDS (9.0-12.0)
[2017-08-28 08:31] LABS: ALT/SGPT 50 U/L (12-78); BLOOD UREA NITROGEN 7 mg/dl (7-18); BUN/CREATININE RATIO 12.6 (10-20); CALCIUM 8.6 mg/dl (8.5-10.1); CARBON DIOXIDE 30 mmol/L (21-32); CHLORIDE 103 mmol/L (98-107); CREATININE 0.52 mg/dl (0.60-1.40); GLUCOSE 94 mg/dl (70-99); POTASSIUM 3.7 mmol/L (3.5-5.1); SODIUM 138 mmol/L (136-145)
[2017-08-28 08:34] LABS: ALB/GLOB RATIO 0.9 (0.9-2); ALKALINE PHOSPHATASE 72 U/L (45-117); AST/SGOT 28 U/L (15-37)
[2017-08-28 10:17] LABS: LYME DISEASE AB IGG NEG (NEG)
[2017-08-28 10:19] LABS: LYME DISEASE AB IGM POS (NEG)
[2017-08-30 04:38] LABS: RAPID PLASMA REAGIN NONREACTIVE (NONREACT)
[2017-08-31 15:05] LABS: 18KDIGG BAND REACTIVE (NONREACTIVE); 23KDIGG BAND REACTIVE (NONREACTIVE); 23KDIGM BAND REACTIVE (NONREACTIVE); 28KDIGG BAND NONREACTIVE (NONREACTIVE); 30KDIGG BAND NONREACTIVE (NONREACTIVE); 39KDIGG BAND NONREACTIVE (NONREACTIVE); 39KDIGM BAND NONREACTIVE (NONREACTIVE); 41KDIGG BAND REACTIVE (NONREACTIVE); 41KDIGM BAND REACTIVE (NONREACTIVE); 45KDIGG BAND NONREACTIVE (NONREACTIVE); 58KDIGG BAND NONREACTIVE (NONREACTIVE); 66KDIGG BAND NONREACTIVE (NONREACTIVE); 93KDIGG BAND NONREACTIVE (NONREACTIVE)
== END | disposition home or self-care (01) ==
LOC: C.LABUPNIT 08:01
PROVIDERS: ATTEND Nurse Practitioner Family
DX: I10 Essential (primary) hypertension (principal)

== ENCOUNTER → 2017-08-31 | Outpatient (CLI) | payer BC | LOC: C.LABUPNIT 08:33 | PROVIDERS: ATTEND Nurse Practitioner Family | DX: Z01.89 Encounter for other specified special examinations (principal) ==

== ENCOUNTER 2021-01-06 10:21 | Inpatient (IN) ==
--- NOTE | 2021-01-06 10:28 | Emergency Department Note ---
Impression & Plan Acute hypoxemic respiratory failure, Abnormal EKG ED Provider Note NAME: RASHARD ALEXANDER AGE: 55 SEX: M : 1965 ARRIVES VIA: Walk-In INFORMANT: patient, ED PROVIDER(S): Blaine Hurley MD Chief Complaint: Shortness of breath HPI: Patient has had shortness of breath is been ongoing approximately 1 month but has worsened recently. The notes that even doing simple tasks as well as walking around he does have worsening shortness of breath. The patient does have a known history of chronic alcohol use but has been sober for 3 years. Patient does have a remote smoking history but last met 10 years ago. Patient has been compliant with his medications. The patient was seen in the outpatient setting at Dr. Holliday's office and was referred here for further evaluation and treatment as the patient had baseline hypoxia and worsening pulse oximetry with activity. He was as low as the low 70s. Patient does not use any oxygen at home. Patient denies any fevers chills or cough. Patient is not been vaccinated for Covid yet. Patient denies any upper respiratory type symptoms. The patient denies any prior history of DVT or PE. Patient has lower extremity swelling. Patient did have an EKG completed as well which did show some T wave inversions. ROS: See HPI for pertinent positives and negatives. A total of 10 systems were reviewed and otherwise negative. Past medical history: See below Surgical history: See below Social history: See below Physical Exam: GENERAL: Wearing a mask. Nasal cannula placed on the patient EYE EXAM: Normal conjunctiva. PERRL, no anisocoria and EOM's grossly intact w/o pain. NECK: Supple, no nuchal rigidity, no adenopathy, non-tender. No signs of meni ngismus. Not stridulous. LUNGS: Crackles noted in the right chest normal chest wall mechanics. HEART: Tachycardic and regular, no MRG. ABDOMEN: Abdomen soft, non-tender, normo-active bowel sounds, no masses, no rebound or guarding. BACK: No CVA TTP. SKIN: No rashes and no bruising. UPPER EXTREMITIES: Upper extremities are grossly normal. LOWER EXTREMITIES: Grossly normal, no edema. Negative Homans' sign bilaterally. NEURO EXAM: A&O x3, cranial nerves II-XII grossly intact, normal speech, moves all 4 extremities on command w/o issue. Differential diagnoses: Reactive airway disease, pneumonia, pneumothorax, COPD, CHF, infections, cardiac ischemia, pulmonary embolism, musculoskeletal, gastro intestinal, as well as other pathologies. Course: Patient was seen and evaluated the bedside. Full history physical exam was performed. EKG: Indication: Hypoxia Normal sinus rhythm, rate of 100, normal intervals, normal axis, T wave inversion anteriorly and inferiorly. Imaging Studies: See below Cardiac monitoring: An order was placed for continuous cardiac monitoring. The monitor shows a rate of 102 with sinus tachycardia rhythm. MDM: Patient did present with concern for shortness of breath and hypoxia. Blood work was obtained and oxygen was placed on the patient. Patient blood work fairly unremarkable. Chest x-ray unchanged. CT angiography did not show any evidence of PE but does have chronic elevation of right hemidiaphragm. Covid flu RSV negative. Given the patient's new hypoxia and exertional dyspnea I did speak with the on-call hospitalist. I did speak with Bridgett Guevara PA-C and the patient was to be admitted by Dr. West. Past Med/Surg History Medical History (Updated 01/07/21 @ 07:18 by Blaine Hurley MD) Alcohol withdrawal seizure Alcoholic encephalopathy Anxiety Nunez esophagus History of cardiomyopathy HTN (hypertension) Osteoarthritis Unspecified episodic mood disorder Surgical History (Updated 01/06/21 @ 14:25 by Raven Guevara PA-C) H/O endoscopy [place] teeth removed Family History Father Coronary heart disease [place] in 80's Other Cancer Social History Smoking Status: Former smoker Hx Alcohol Use: No (Former alcoholic. Last drink 2016) Hx Substance Use: No Preferred Language: [place] Household Personal Assistant Required: No Beliefs That Will Affect Care: None Current Living Situation: Spouse Other Information That Helps Us Care for You: No Feels Safe at Home: Yes Safety Concerns: Feels Safe At This Time Assistive Devices: Glasses Allergies Allergies Allergy/AdvReac Type Severity Reaction Status Date / Time No Known Allergies Allergy Mild Unverified 01/06/21 11:15 Home Meds Home Medications Medication Instructions Recorded Confirmed folic acid 1 mg PO QAM 10/25/19 01/06/21 gabapentin 100 mg PO BID PRN 10/25/19 01/06/21 metoprolol succinate 12.5 mg PO QAM 10/25/19 01/06/21 mirtazapine 30 mg PO HS 10/25/19 01/06/21 pantoprazole 40 mg PO QAM 10/25/19 01/06/21 risperidone 0.25 mg PO HS 10/25/19 01/06/21 thiamine HCl (vitamin B1) 100 mg PO QAM 10/25/19 01/06/21 melatonin 10 mg PO HS 01/06/21 01/06/21 multivitamin 1 tab PO DAILY 01/06/21 01/06/21 Results & Data (ED) Vital Signs Vital Signs - 24 hr 01/06/21 10:24 01/06/21 10:36 01/06/21 11:38 Temperature 36.5 C Temperature Source Oral Pulse Rate 108 H Pulse Rate [Left Finger] Pulse Rhythm Regular Pulse Rhythm [Left Finger] Pulse Strength Normal Pulse Strength [Left Finger] Respiratory Rate 20 Respiratory Effort / Characteristics Non-Labored Labored Respiratory Depth Normal Respiratory Pattern Regular Blood Pressure 155/95 H Blood Pressure [Left Arm] Blood Pressure Mean 115 Blood Pressure Mean [Left Arm] Blood Pressure Position Sitting Blood Pressure Position [Left Arm] Pulse Oximetry 85 L 95 85 L Oxygen Delivery Method Room Air Nasal Cannula Nasal Cannula Oxygen Flow Rate 2 2 Sepsis Recent Fever Within 48 Hours No Sepsis New/Unexplained Change in Mental Status No Sepsis Action Taken by Nursing No Action Required 01/06/21 11:54 01/06/21 12:37 Temperature Temperature Source Pulse Rate Pulse Rate [Left Finger] 115 H 111 H Pulse Rhythm Pulse Rhythm [Left Finger] Regular Pulse Strength Pulse Strength [Left Finger] Normal Respiratory Rate 26 H 23 Respiratory Effort / Characteristics Non-Labored Spontaneous Respiratory Depth Normal Respiratory Pattern Regular Blood Pressure Blood Pressure [Left Arm] 180/105 H 173/116 H Blood Pressure Mean Blood Pressure Mean [Left Arm] 130 135 Blood Pressure Position Blood Pressure Position [Left Arm] Sitting Sitting Pulse Oximetry 96 99 Oxygen Delivery Method Nasal Cannula Nasal Cannula Oxygen Flow Rate 3 2 Sepsis Recent Fever Within 48 Hours Sepsis New/Unexplained Change in Mental Status Sepsis Action Taken by Retirement Medications Current Medication List: was personally reviewed by me Laboratory Data Attestation: I reviewed the patient's lab results. Result diagrams: 01/07/21 06:23 01/06/21 12:17 Lab Results 01/06/21 01/06/21 01/06/21 Range/Units 10:45 10:45 10:45 WBC 5.94 (4.8-10.8) K/uL RBC 5.14 (4.7-6.1) M/uL Hgb 15.4 (14.0-18.0) g/dL POC Hgb (14.0-18.0) g/dl Hct 46.5 (42-52) % POC Hct (42-52) % MCV 90.5 (80-100) fL MCH 30.0 (25-34) pg MCHC 33.1 (32-36) g/dL RDW Std Deviation 41.3 (36.4-46.3) fL RDW Coeff of Nimco 12.2 (11.5-14.5) % Plt Count 200 (130-400) K/uL MPV 10.8 H (7.4-10.4) fL Immature Gran % (Auto) 0.2 % Neut % (Auto) 64.6 % Lymph % (Auto) 19.7 % [place] % (Auto) 14.0 % Eos % (Auto) 1.2 % Baso % (Auto) 0.3 % Neut # (Auto) 3.84 (1.4-6.5) K/uL Lymph # (Auto) 1.17 L (1.2-3.4) K/uL [place] # (Auto) 0.83 H (0.11-0.59) K/uL Eos # (Auto) 0.07 (0-0.5) K/uL Baso # (Auto) 0.02 (0-0.2) K/uL Immature Gran # (Auto) 0.01 (0.00-0.02) K/uL PT Cancelled INR Cancelled APTT Cancelled PTT Ratio Cancelled POC Sodium (135-144) mmol/L Sodium 132 L (136-145) mmol/L POC Potassium (3.3-5.0) mmol/L Potassium (3.5-5.1) mmol/L POC Chloride (101-112) mmol/L Chloride 97 L (98-107) mmol/L Carbon Dioxide 34 H (21-32) mmol/L POC Total CO2 (24-31) mmol/L Anion Gap 0 L (3-11) POC Anion Gap (16-25) mmol/L POC BUN (7-18) mg/dl BUN 7 (7-18) mg/dl Creatinine 0.74 (0.6-1.4) mg/dl POC Creatinine (0.6-1.3) mg/dl Est Cr Clr Drug Dosing 107.5 ml/min Est GFR ( Amer) 121.2 Est GFR (Non-Af Amer) 104.6 BUN/Creatinine Ratio 9.1 L (10-20) Glucose 108 H (70-99) mg/dl POC Glucose (other) (70-99) mg/dl Calcium 8.7 (8.5-10.1) mg/dl POC Ioniz Calcium Odilia (1.12-1.32) mmol/l Magnesium (1.8-2.4) mg/dl Total Bilirubin 0.5 (0.2-1) mg/dl AST (15-37) U/L ALT 26 (12-78) U/L Alkaline Phosphatase 104 (45-117) U/L Troponin I < 0.015 (0-0.045) ng/ml Total Protein 7.2 (6.4-8.2) gm/dl Albumin 3.3 L (3.4-5.0) gm/dl Globulin 3.9 (2.5-4.0) gm/dl Albumin/Globulin Ratio 0.8 L (0.9-2) TSH 2.730 (0.300-4.500) uIu/ml COVID-19 Eval Order SARS-CoV-2 (PCR) (Negative) Influenza Type A (PCR) (Neg) Influenza Type B (PCR) (Neg) RSV (RT-PCR) (Neg) 01/06/21 01/06/21 01/06/21 Range/Units 10:53 11:20 11:30 WBC (4.8-10.8) K/uL RBC (4.7-6.1) M/uL Hgb (14.0-18.0) g/dL POC Hgb 16.3 (14.0-18.0) g/dl Hct (42-52) % POC Hct 48 (42-52) % MCV (80-100) fL MCH (25-34) pg MCHC (32-36) g/dL RDW Std Deviation (36.4-46.3) fL RDW Coeff of Nimco (11.5-14.5) % Plt Count (130-400) K/uL MPV (7.4-10.4) fL Immature Gran % (Auto) % Neut % (Auto) % Lymph % (Auto) % [place] % (Auto) % Eos % (Auto) % Baso % (Auto) % Neut # (Auto) (1.4-6.5) K/uL Lymph # (Auto) (1.2-3.4) K/uL [place] # (Auto) (0.11-0.59) K/uL Eos # (Auto) (0-0.5) K/uL Baso # (Auto) (0-0.2) K/uL Immature Gran # (Auto) (0.00-0.02) K/uL PT 10.1 INR 1.0 APTT 25.6 PTT Ratio 1.0 POC Sodium 132 L (135-144) mmol/L Sodium (136-145) mmol/L POC Potassium 5.4 H (3.3-5.0) mmol/L Potassium (3.5-5.1) mmol/L POC Chloride 93 L (101-112) mmol/L Chloride (98-107) mmol/L Carbon Dioxide (21-32) mmol/L POC Total CO2 38 H (24-31) mmol/L Anion Gap (3-11) POC Anion Gap 8.0 L (16-25) mmol/L POC BUN 8 (7-18) mg/dl BUN (7-18) mg/dl Creatinine (0.6-1.4) mg/dl POC Creatinine 0.7 (0.6-1.3) mg/dl Est Cr Clr Drug Dosing ml/min Est GFR ( Amer) Est GFR (Non-Af Amer) BUN/Creatinine Ratio (10-20) Glucose (70-99) mg/dl POC Glucose (other) 115 H (70-99) mg/dl Calcium (8.5-10.1) mg/dl POC Ioniz Calcium [place] 1.08 L (1.12-1.32) mmol/l Magnesium (1.8-2.4) mg/dl Total Bilirubin (0.2-1) mg/dl AST (15-37) U/L ALT (12-78) U/L Alkaline Phosphatase (45-117) U/L Troponin I (0-0.045) ng/ml Total Protein (6.4-8.2) gm/dl Albumin (3.4-5.0) gm/dl Globulin (2.5-4.0) gm/dl Albumin/Globulin Ratio (0.9-2) TSH (0.300-4.500) uIu/ml COVID-19 Eval Order CovFluRsv at [facility] SARS-CoV-2 (PCR) (Negative) Influenza Type A (PCR) (Neg) Influenza Type B (PCR) (Neg) RSV (RT-PCR) (Neg) 01/06/21 01/06/21 Range/Units 11:30 12:17 WBC (4.8-10.8) K/uL RBC (4.7-6.1) M/uL Hgb (14.0-18.0) g/dL POC Hgb (14.0-18.0) g/dl Hct (42-52) % POC Hct (42-52) % MCV (80-100) fL MCH (25-34) pg MCHC (32-36) g/dL RDW Std Deviation (36.4-46.3) fL RDW Coeff of Nimco (11.5-14.5) % Plt Count (130-400) K/uL MPV (7.4-10.4) fL Immature Gran % (Auto) % Neut % (Auto) % Lymph % (Auto) % [place] % (Auto) % Eos % (Auto) % Baso % (Auto) % Neut # (Auto) (1.4-6.5) K/uL Lymph # (Auto) (1.2-3.4) K/uL [place] # (Auto) (0.11-0.59) K/uL Eos # (Auto) (0-0.5) K/uL Baso # (Auto) (0-0.2) K/uL Immature Gran # (Auto) (0.00-0.02) K/uL PT INR APTT PTT Ratio POC Sodium (135-144) mmol/L Sodium (136-145) mmol/L POC Potassium (3.3-5.0) mmol/L Potassium 4.1 (3.5-5.1) mmol/L POC Chloride (101-112) mmol/L Chloride (98-107) mmol/L Carbon Dioxide (21-32) mmol/L POC Total CO2 (24-31) mmol/L Anion Gap (3-11) POC Anion Gap (16-25) mmol/L POC BUN (7-18) mg/dl BUN (7-18) mg/dl Creatinine (0.6-1.4) mg/dl POC Creatinine (0.6-1.3) mg/dl Est Cr Clr Drug Dosing ml/min Est GFR ( Amer) Est GFR (Non-Af Amer) BUN/Creatinine Ratio (10-20) Glucose (70-99) mg/dl POC Glucose (other) (70-99) mg/dl Calcium (8.5-10.1) mg/dl POC Ioniz Calcium [place]ilia (1.12-1.32) mmol/l Magnesium 2.0 (1.8-2.4) mg/dl Total Bilirubin (0.2-1) mg/dl AST 14 L (15-37) U/L ALT (12-78) U/L Alkaline Phosphatase (45-117) U/L Troponin I (0-0.045) ng/ml Total Protein (6.4-8.2) gm/dl Albumin (3.4-5.0) gm/dl Globulin (2.5-4.0) gm/dl Albumin/Globulin Ratio (0.9-2) TSH (0.300-4.500) uIu/ml COVID-19 Eval Order SARS-CoV-2 (PCR) NEGATIVE (Negative) Influenza Type A (PCR) Negative (Neg) Influenza Type B (PCR) Negative (Neg) RSV (RT-PCR) Negative (Neg) Administered Medications Acetaminophen (Acetaminophen 325 Mg Tab) 650 mg PO Q4H PRN PRN Reason: Pain or Fever Stop: 02/05/21 15:20 Last Admin: 01/06/21 15:30 Dose: 650 mg Documented by: [id number] Gabapentin (Gabapentin 100 Mg Cap) 100 mg PO BID PRN PRN Reason: Anxiety Stop: 02/05/21 15:20 Last Admin: 01/06/21 21:15 Dose: 100 mg Documented by: [id number] Melatonin (Melatonin 3 Mg Tab) 9 mg PO HSZ [facility]; Protocol Stop: 02/05/21 21:59 Last Admin: 01/06/21 21:15 Dose: 9 mg Documented by: [id number] Mirtazapine (Mirtazapine Tab 15 Mg Tab) 30 mg PO [facility] Stop: 02/05/21 20:59 Last Admin: 01/06/21 21:15 Dose: 30 mg Documented by: [id number] Risperidone (Risperidone 0.5 Mg Tablet) 0.25 mg PO [facility] Stop: 02/05/21 20:59 Last Admin: 01/06/21 21:15 Dose: 0.25 mg Documented by: [id number] Discontinued Medications Sodium Chloride (Nss) 500 mls @ 999 mls/hr IV .Q31M LISA Stop: 01/06/21 11:15 Last Infusion: 01/06/21 11:45 Dose: 0 mls/hr Documented by: [id number] Admin: 01/06/21 11:00 Dose: 999 mls/hr Documented by: [id number] Furosemide 20 mg/ Syringe 2 mls @ 4 mls/min IV ONE ONE Stop: 01/06/21 16:01 Last Admin: 01/06/21 16:19 Dose: 4 mls/min Documented by: [id number] Ioversol (Optiray 350 500ml) 120 ml IV ONCE ONE Stop: 01/06/21 11:42 Last Admin: 01/06/21 11:42 Dose: 120 ml Documented by: [id number] Discharge Plan Visit Data Chief Complaint: Shortness of Breath/Dyspnea Stated Complaint: ABNORMAL EKG, LOW O2 ED Provider: Blaine Hurley Discharge Problem: Acute hypoxemic respiratory failure, Abnormal EKG Patient Disposition: Admitted As Inpatient Discharge Instructions Interventions: ED Discharge Assessment Last Done: 01/06/21 14:54
[2021-01-06] MEDS ORDERED: SODIUM CHLORIDE 0.9% 500 ML IV SCH (10:45)
[2021-01-06 11:05] LABS: iSTAT Creatinine 0.7 mg/dl (0.6-1.3); iSTAT Hemoglobin 16.3 g/dl (14.0-18.0); iSTAT Ionized Calcium 1.08 mmol/l (1.12-1.32); iSTAT Potassium 5.4 mmol/L (3.3-5.0)
--- NOTE | 2021-01-06 11:11 | XRay Report ---
SINGLE VIEW CHEST CLINICAL HISTORY: Generalized weakness. FINDINGS: An AP, portable, upright chest radiograph is compared to study dated 10/25/2019. The heart is mildly enlarged. The pulmonary vasculature is noncongested. There is chronic elevation of the right hemidiaphragm with bibasilar scarring/atelectasis. No airspace consolidation or large pleural effusio n is identified. The skeletal structures are osteopenic. The bony thorax is grossly intact. IMPRESSION: No active disease in the chest. ACT 112: Negative or not required by law. Electronically signed by: Tay Giang M.D. 01/06/2021 11:10 AM
[2021-01-06 11:12] LABS: Basophils # (auto) 0.02 K/uL (0-0.2); Basophils % (auto) 0.3 %; Eosinophils # (auto) 0.07 K/uL (0-0.5); Eosinophils % (auto) 1.2 %; Hematocrit (blood only) 46.5 % (42-52); Hemoglobin 15.4 g/dL (14.0-18.0); Immature Granulocytes # (auto) 0.01 K/uL (0.00-0.02); Immature Granulocytes % (auto) 0.2 %; Lymphocytes # (auto) 1.17 K/uL (1.2-3.4); Lymphocytes % (auto) 19.7 %; Mean Corpuscular Hgb Conc 33.1 g/dL (32-36); Mean Corpuscular Volume 90.5 fL (80-100); Mean Platelet Volume 10.8 fL (7.4-10.4); Monocytes # (auto) 0.83 K/uL (0.11-0.59); Neutrophils # (auto) 3.84 K/uL (1.4-6.5); Neutrophils % (auto) 64.6 %; Platelet Count 200 K/uL (130-400); RDW Coefficient of Variation 12.2 % (11.5-14.5); RDW Standard Deviation 41.3 fL (36.4-46.3); Red Blood Count 5.14 M/uL (4.7-6.1); White Blood Count 5.94 K/uL (4.8-10.8)
[2021-01-06] MEDS ORDERED: OPTIRAY 350 500ml IV ONE (11:41)
[2021-01-06 11:53] LABS: Alanine Aminotransferase 26 U/L (12-78); Albumin Globulin Ratio 0.8 (0.9-2); Albumin Level 3.3 gm/dl (3.4-5.0); Alkaline Phosphatase 104 U/L (45-117); Anion Gap 0 (3-11); BUN Creatinine Ratio 9.1 (10-20); Bilirubin,Total 0.5 mg/dl (0.2-1); Blood Urea Nitrogen 7 mg/dl (7-18); Calcium 8.7 mg/dl (8.5-10.1); Carbon Dioxide 34 mmol/L (21-32); Chloride 97 mmol/L (98-107); Creatinine Clr Calc Pharmacy 107.5 ml/min; Est GFR (African American) 121.2; Est GFR (Non-African American) 104.6; Globulin 3.9 gm/dl (2.5-4.0); Glucose 108 mg/dl (70-99); Sodium 132 mmol/L (136-145); Total Protein 7.2 gm/dl (6.4-8.2); Troponin I < 0.015 ng/ml (0-0.045)
--- NOTE | 2021-01-06 12:13 | CT Scan Report ---
CT ANGIOGRAPHY OF THE CHEST, PULMONARY EMBOLUS PROTOCOL CLINICAL HISTORY: Weakness. COMPARISON STUDY: Chest radiograph October 25, 2020 and January 06, 2021. TECHNIQUE: Following IV administration of 120 mL of Optiray, helical axial images of the chest were o btained utilizing the pulmonary embolus protocol. Maximal intensity projections and sagittal and cor onal reformats were viewed on an independent 3D workstation. IV contrast was administered without co mplication. Automated exposure control was utilized for the study. A dose lowering technique was ut ilized adhering to the principles of ALARA. CT DOSE: 339.87 mGy.cm FINDINGS: Elevation of the right hemidiaphragm is unchanged since abdominal CT of July 25, 2018. No pulmonary emboli are identified although the segmental and subsegmental pulmonary arteries are sub optimally assessed due to respiratory motion. There is no thoracic aortic dissection. Mild cardiomega ly is noted. There is no pericardial effusion. No thoracic lymphadenopathy is present. There is no pn eumothorax or pleural effusion. Multiple old right rib fractures are noted. Subpleural right middle l obe and right lower lobe opacity reflects atelectasis. Groundglass opacities within the left lung rep resent atelectasis. There is no consolidation to suggest pneumonia. No acute fracture within visualiz ed portions of the bony thorax is noted. Visualized portions of the upper abdomen are unremarkable. IMPRESSION: 1. No pulmonary emboli identified although segmental and subsegmental pulmonary arteries suboptimally assessed due to respiratory motion. 2. No acute process within the chest. 3. Stable moderate elevation of the right hemidiaphragm with associated right middle lobe and right l ower lobe segmental atelectasis. ACT 112: Negative or not required by law. Electronically signed by: Дмитрий Hagen M.D. 01/06/2021 12:12 PM
[2021-01-06 12:24] LABS: Influenza A virus by PCR Negative (Neg); Influenza B virus by PCR Negative (Neg); RSV by PCR Negative (Neg); SARS CoV2 RNA(COVID-19) InHosp NEGATIVE (Negative)
[2021-01-06 12:25] LABS: Partial Thromboplastin Time 25.6 Seconds (21.0-31.0); Prothrombin Time 10.1 Seconds (9.0-12.0)
[2021-01-06 12:47] LABS: Potassium 4.1 mmol/L (3.5-5.1)
--- NOTE | 2021-01-06 14:09 | History & Physical Report ---
Date of Service January 06, 2021 Assessment & Plan (1) Hypoxia: (2) Tachycardia: Pt is 55 y/o M with PMH alcoholism, sober for over 3 years, alcoholic encephalopathy, anxiety, HTN, Barretts esophagus, RML nodule, prior smoker, presented to ER for progressive dyspnea on exertion x 1.5 months and noted hypoxia with ambulation in clinic today. One fleeting episode CP this morning. Denies fever/chills, cough, current CP or SOB. denies missed metoprolol dose. Today in ER afebrile, P: 108, R: 20, BP: 155/95, 85% on RA up to 99% on 2L at rest. No leukocytosis, negative COVID 19 PCR, negative influenza PCR. Negative initial troponin. TSH: WNL at 2.7 EKG: sinus tachycardia, T wave inversion anterior, lateral, septal CTA: No pulmonary emboli identified although segmental and subsegmental pulmonary arteries suboptimally assessed due to respiratory motion. Stable moderate elevation of the right hemidiaphragm with associated right middle lobe and right lower lobe segmental atelectasis. In ER received 500ml NSS DDX: cardiomyopathy -Obtain ABG, BNP, ETOH level, procalcitonin -Will trend troponin -Echo -EKG in am -Supplemental oxygen -incentive spirometry -consider lasix -CBC, BMP in am (3) Hyponatremia: Na: 132 -Monitor BMP (4) HTN (hypertension): BP: 155/95 -Continue metoprolol (5) Alcoholic encephalopathy: Prior alcoholic and h/o withdrawal seizures. Chronic memory loss. No reported alcohol since 2017. -Pt will require frequent re-orientation (6) Anxiety: -Continue Risperdal, Remeron, gabapentin (7) Nunez esophagus: -Continue PPI DVT Prophylaxis -SCDs Full Code as per discussion with pt Follows with Dr Serrano for routine care Pt was seen and care coordinated with Dr West. See addendum History of Present Illness Chief Complaint: Hypoxia Primary Care Provider: Abhinav Serrano, DO Pt is 55 y/o M with PMH alcoholism, sober for over 3 years, alcoholic encephalopathy, anxiety, HTN, Barretts esophagus, RML nodule, prior smoker, presented to ER from PCP's office for hypoxia. Pt referred from clinic today was found to be tachycardic and oxygen desaturation in to the 70's with ambulation. History obtained from pt and pt's secondary to pt's memory loss. Reports pt with progressive SOB with exertion for past 1.5 months. Today pt bent over and reported some left sided CP that lasted a few seconds and resolved. States had a couple of episodes of fleeting CP with movement over the past several months that lasts a few seconds and self resolves. Denies cough, fever/chills. re jose pt had medications today and denies missed doses of medications. Denies fever/chills, diaphoresis, N/V/D/C, GALEANO, dizziness, syncope, vision changes, neck pain, palpitations, sore throat, choking, otalgia, rhinorrhea, abdominal pain, paresthesias, weakness, extremity weakness, extremity edema, rashes, urinary symptoms. Denies h/o COPD, Denies COVID 19 or known COVID 19 exposures. 2019 EKG report: nonspecific T wave abnormality in inferior and anterior leads. Echo: 2017: sinus tachycardia rate 130, limited exam unable to measure LV function, no significant valvular disease History cardiac cath in 2013: widely patent and normal coronary anatomy with normal left ventricular function Allergies Allergy/AdvReac Type Severity Reaction Status Date / Time No Known Allergies Allergy Mild Unverified 01/06/21 11:15 Home Medications Medication Instructions Recorded Confirmed Type folic acid 1 mg PO QAM 10/25/19 01/06/21 History gabapentin 100 mg PO BID PRN 10/25/19 01/06/21 History metoprolol succinate 12.5 mg PO QAM 10/25/19 01/06/21 History mirtazapine 30 mg PO HS 10/25/19 01/06/21 History pantoprazole 40 mg PO QAM 10/25/19 01/06/21 History risperidone 0.25 mg PO HS 10/25/19 01/06/21 History thiamine HCl (vitamin B1) 100 mg PO QAM 10/25/19 01/06/21 History melatonin 10 mg PO HS 01/06/21 01/06/21 History multivitamin 1 tab PO DAILY 01/06/21 01/06/21 History Past Med/Surg History Medical History (Updated 01/07/21 @ 07:18 by Blaine Hurley MD) Alcohol withdrawal seizure Alcoholic encephalopathy Anxiety Nunez esophagus History of cardiomyopathy HTN (hypertension) Osteoarthritis Unspecified episodic mood disorder Surgical History (Updated 01/06/21 @ 14:25 by Raven Guevara PA-C) H/O endoscopy [place] teeth removed Family History Father Coronary heart disease [place] in 80's Other Cancer Social History Smoking Status: Former smoker Hx Alcohol Use: No (Former alcoholic. Last drink 2016) Hx Substance Use: No Preferred Language: Latvian Operations Research Analyst Required: No Beliefs That Will Affect Care: None Current Living Situation: Spouse Other Information That Helps Us Care for You: No Feels Safe at Home: Yes Safety Concerns: Feels Safe At This Time Assistive Devices: None Review of Systems Review of Systems: All systems reviewed & are unremarkable except as noted in HPI & below Physical Exam Physical Exam: General: no distress, WDWN Head: normocephalic, atraumatic Eyes: PERRL, EOM's intact, conjunctiva non-injected, anicteric ENT: normal inspection external ears, nose, mucous membranes moist Neck: supple, trachea midlin Lungs: no respiratory distress at rest on 2L oxygen via NC with sat 98%, diminished breath sounds throughout CV: tachycardia, rate 108, regular rhythm, trace pretibial edema Abd: normal BS, soft, non-tender Ext: no cyanosis, no calf tenderness Neuro: Alert. Oriented to place, person, year. Noted short term memory loss, asks if is going to be admitted to hospital several times throughout exam, no focal deficits noted, flat affect Skin: warm, dry Results & Data Results & Data ([facility]) Vital Signs (Past 12 Hours) Vital Signs Temp Pulse Pulse Resp BP BP Pulse Ox 01/06/21 14:01 109 H 20 164/105 H 97 01/06/21 12:37 111 H 23 173/116 H 99 01/06/21 11:54 115 H 26 H 180/105 H 96 01/06/21 11:38 85 L 01/06/21 10:36 95 01/06/21 10:24 36.5 C 108 H 20 155/95 H 85 L Laboratory Results Short CBC 01/06/21 01/06/21 Range/Units 10:45 10:45 WBC 5.94 (4.8-10.8) K/uL Hgb 15.4 (14.0-18.0) g/dL Hct 46.5 (42-52) % Plt Count 200 (130-400) K/uL Sodium 132 L (136-145) mmol/L BMP 01/06/21 01/06/21 10:45 12:17 Sodium 132 L Potassium 4.1 Chloride 97 L Carbon Dioxide 34 H BUN 7 Creatinine 0.74 Glucose 108 H Calcium 8.7 Cardiac Enzymes 01/06/21 Range/Units 10:45 Troponin I < 0.015 (0-0.045) ng/ml Liver Function 01/06/21 01/06/21 Range/Units 10:45 12:17 Total Bilirubin 0.5 (0.2-1) mg/dl AST 14 L (15-37) U/L ALT 26 (12-78) U/L Alkaline Phosphatase 104 (45-117) U/L Albumin 3.3 L (3.4-5.0) gm/dl Diagnostic Findings Chest CTA 01/06/21 10:36 CT ANGIOGRAPHY OF THE CHEST, PULMONARY EMBOLUS PROTOCOL CLINICAL HISTORY: Weakness. COMPARISON STUDY: Chest radiograph October 25, 2020 and January 06, 2021. TECHNIQUE: Following IV administration of 120 mL of Optiray, helical axial images of the chest were obtained utilizing the pulmonary embolus protocol. Maximal intensity projections and sagittal and coronal reformats were viewed on an independent 3D workstation. IV contrast was administered without complication. Automated exposure control was utilized for the study. A dose lowering technique was utilized adhering to the principles of ALARA. CT DOSE: 339.87 mGy.cm FINDINGS: Elevation of the right hemidiaphragm is unchanged since abdominal CT of July 25, 2018. No pulmonary emboli are identified although the segmental and subsegmental pulmonary arteries are suboptimally assessed due to respiratory motion. There is no thoracic aortic dissection. Mild cardiomegaly is noted. There is no pericardial effusion. No thoracic lymphadenopathy is present. There is no pneumothorax or pleural effusion. Multiple old right rib fractures are noted. Subpleural right middle lobe and right lower lobe opacity reflects atelectasis. Groundglass opacities within the left lung represent atelectasis. There is no consolidation to suggest pneumonia. No acute fracture within visualized portions of the bony thorax is noted. Visualized portions of the upper abdomen are unremarkable. IMPRESSION: 1. No pulmonary emboli identified although segmental and subsegmental pulmonary arteries suboptimally assessed due to respiratory motion. 2. No acute process within the chest. 3. Stable moderate elevation of the right hemidiaphragm with associated right middle lobe and right lower lobe segmental atelectasis. ACT 112: Negative or not required by law. Electronically signed by: Дмитрий Hagen M.D. 01/06/2021 12:12 PM Chest X-Ray 01/06/21 10:36 SINGLE VIEW CHEST CLINICAL HISTORY: Generalized weakness. FINDINGS: An AP, portable, upright chest radiograph is compared to study dated 10/25/2019. The heart is mildly enlarged. The pulmonary vasculature is noncongested. There is chronic elevation of the right hemidiaphragm with bibasilar scarring/atelectasis. No airspace consolidation or large pleural effusion is identified. The skeletal structures are osteopenic. The bony thorax is grossly intact. IMPRESSION: No active disease in the chest. ACT 112: Negative or not required by law. Electronically signed by: Tay Giang M.D. 01/06/2021 11:10 AM ECG Rate (beats per minute): 100 Rhythm: sinus tachycardia Findings: + T-wave inversion (Anterior, Inferior, Septal) Supervising Physician Co-Signing Physician Notes Acute hypoxic respiratory failure Possible component of fluid overload Mild hyponatremia Tachycardic on admission Patient presented with new oxygen requirement with roughly 2 L. Do not use any supplemental oxygen at home. Does report feeling short of breath. Denies any cough, chest pain, abdominal pain, diarrhea, dysuria. Of note patient is a poor historian and given his memory issues that have been going on for 3-1/2 years. Will obtain procalcitonin, proBNP, transthoracic echo. We will give low-dose IV Lasix 20 mg now. Monitor ins and outs along with daily weights. Hyponatremia possibly secondary to hypervolemia. I performed a history and physical examination of the patient on 01/06/21, including specifically H&P. I have discussed the patient's management with the advanced practitioner. Please refer to the Raven Guevara note for the documented findings and plan of care.
[2021-01-06 15:14] LABS: Base Excess ABG 4.4 mEq/L (-9-1.8); HCO3 ABG 35 mmol/L (19-24); Oxygen Saturation ABG 97.7 % (90-95); PCO2 ABG 84 mmHg (35-46); PO2 ABG 120 mmHg (80-95); pH ABG 7.24 (7.35-7.45)
[2021-01-06 15:16] LABS: Allen Test Pos (Pos)
--- NOTE | 2021-01-06 15:26 | Electrocardiogram Report ---
Test Reason : Blood Pressure : / mmHG Vent. Rate : 100 BPM Atrial Rate : 100 BPM P-R Int : 130 ms QRS Dur : 072 ms QT Int : 344 ms P-R-T Axes : 046 017 -08 degrees QTc Int : 443 ms Normal sinus rhythm Poor R wave progression, consider anterior DC vs. lead placement vs. LVH Abnormal ECG When compared with ECG of 25-OCT-2019 08:27, T wave inversion now evident in Anterior leads Confirmed by Lamin Maravilla ([id number]) on 01/06/2021 3:25:50 PM Referred By: REFERRED SELF Confirmed By:[place] Maravilla
[2021-01-06] MEDS: ACETAMINOPHEN 325 MG TAB PO PRN (15:30)
[2021-01-06] MEDS ORDERED: FUROSEMIDE 20 MG in SYRINGE 0 ML IV ONE (16:00)
[2021-01-06] MEDS: risperiDONE 0.5 MG TABLET PO SCH (21:15)
[2021-01-06] MEDS: MIRTAZAPINE TAB 15 MG TAB PO SCH (21:15)
[2021-01-06] MEDS: GABAPENTIN 100 MG CAP PO PRN (21:15)
[2021-01-06] MEDS: MELATONIN 3 MG TAB PO SCH (21:15)
[2021-01-06 22:32] LABS: Appearance Urine Clear (Clear); Bilirubin Urine Negative (Negative); Blood Urine Negative (Negative); Color Urine Yellow; Glucose Urine UA Negative (Negative); Ketones Urine Negative (Negative); Leukocyte Esterase Urine Negative (Negative); Nitrite Urine Negative (Negative); Protein Urine Negative (Negative); Specific Gravity Urine 1.036 (1.000-1.030); Urobilinogen Urine Negative (Negative); pH Urine 5.5 (4.5-7.5)
[2021-01-07 06:47] LABS: Hematocrit (blood only) 48.7 % (42-52); Hemoglobin 15.5 g/dL (14.0-18.0); Mean Corpuscular Hemoglobin 29.5 pg (25-34); Mean Corpuscular Hgb Conc 31.8 g/dL (32-36); Mean Corpuscular Volume 92.6 fL (80-100); Mean Platelet Volume 9.7 fL (7.4-10.4); Platelet Count 257 K/uL (130-400); RDW Coefficient of Variation 12.2 % (11.5-14.5); RDW Standard Deviation 41.1 fL (36.4-46.3); Red Blood Count 5.26 M/uL (4.7-6.1); White Blood Count 7.09 K/uL (4.8-10.8)
[2021-01-07] MEDS: PANTOprazole 40 MG TAB PO SCH (07:15)
[2021-01-07] MEDS: THIAMINE HCL 100 MG TAB PO SCH (07:15)
[2021-01-07] MEDS: FOLIC ACID 1 MG TAB PO SCH (07:15)
[2021-01-07] MEDS: METOPROLOL SUCC 25MG EXT REL TAB PO SCH (07:16)
[2021-01-07] MEDS: MULTIVITAMIN TAB PO SCH (07:17)
[2021-01-07 07:25] LABS: BUN Creatinine Ratio 9.8 (10-20); Calcium 8.6 mg/dl (8.5-10.1); Est GFR (African American) 122.6; Est GFR (Non-African American) 105.8; Potassium 4.6 mmol/L (3.5-5.1)
--- NOTE | 2021-01-07 12:24 | Electrocardiogram Report ---
Test Reason : Blood Pressure : / mmHG Vent. Rate : 106 BPM Atrial Rate : 106 BPM P-R Int : 130 ms QRS Dur : 070 ms QT Int : 394 ms P-R-T Axes : 072 102 051 degrees QTc Int : 523 ms Poor data quality, interpretation may be adversely affected Sinus tachycardia Rightward axis Abnormal ECG When compared with ECG of 06-JAN-2021 10:35, T wave inversion less evident in Anterior leads Nonspecific T wave abnormality now evident in Lateral leads Confirmed by Lamin Maravilla ([id number]) on 01/07/2021 12:24:49 PM Referred By: REFERRED SELF Confirmed By:[place] Maravilla
--- NOTE | 2021-01-07 12:34 | Hospitalist Progress Note ---
Date of Service January 07, 2021 Assessment & Plan (1) Hypoxia: Pt is 55 y/o M with PMH alcoholism, sober for over 3 years, alcoholic encephalopathy, anxiety, HTN, Barretts esophagus, RML nodule, prior smoker, presented to ER for progressive dyspnea on exertion x 1.5 months and noted hypoxia with ambulation in clinic on the day of admission. Acute hypoxic/hypercapnic respiratory failure Today patient is on 3 L of nasal cannula. Cardiac enzymes are not concerning. BNP of only 491. CTA: No pulmonary emboli identified although segmental and subsegmental pulmonary arteries suboptimally assessed due to respiratory motion. Stable moderate elevation of the right hemidiaphragm with associated right middle lobe and right lower lobe segmental atelectasis. Transthoracic echo is pending. Denies any chest pain but does report shortness of breath is improved. Will give another dose of IV Lasix 40 mg now. Incentive spirometer use. (2) Tachycardia: Patient remains persistently tachycardic since admission. He is afebrile. WBC is within normal limit. No concern for sepsis at this point. EKG: sinus tachycardia, T wave inversion anterior, lateral, septal (3) Hyponatremia: Na: 132 on admission, today at 135 -Monitor BMP (4) HTN (hypertension): Stable -Continue metoprolol (5) Alcoholic encephalopathy: Prior alcoholic and h/o withdrawal seizures. Chronic memory loss. No reported alcohol since 2017. -Pt will require frequent re-orientation (6) Anxiety: -Continue Risperdal, Remeron, gabapentin (7) Nunez esophagus: -Continue PPI DVT Prophylaxis -SCDs Admission and Anticipated Discharge Date Admission Date: January 06, 2021 Subjective Patient is lying comfortably. Limited review of system as patient reports that he has memory issues and cannot answer all the questions. Reports shortness of breath is improved. Denies any cough at the moment. Currently remains on 3 L nasal cannula. Review of Systems Review of Systems: All systems reviewed & are unremarkable except as noted in HPI & below Physical Exam Physical Exam: General: A&Ox3 HENT: NCAT, MMM, EOMI Eyes: PERRLA Neck: Supple, normal range of motion CVS: normal rate and rhythm Resp: b/l crackles appreciated Abdomen: Soft, ND/NT, +BS Extremities: Trace lower extremity edema Neuro: face symmetric, no focal deficit Skin: warm and dry, no rashes/lesions/errythema MSK: normal ROM, no joint swelling/erythema Results & Data Results & Data ([facility]) Vital Signs (Past 12 Hours) Vital Signs Temp Pulse Pulse Resp BP BP Pulse Ox 01/07/21 11:43 36.8 C 103 H 18 112/66 93 01/07/21 09:39 122 H 01/07/21 07:10 37.3 C 117 H 19 118/71 93 01/07/21 04:35 36.8 C 112 H 18 114/73 97
[2021-01-07] MEDS ORDERED: FUROSEMIDE 40 MG in SYRINGE 0 ML IV ONE (12:45)
[2021-01-07] MEDS: GABAPENTIN 100 MG CAP PO PRN ×2 (12:57→21:05)
--- NOTE | 2021-01-07 15:08 | Pulmonary Consultation ---
Date of Consultation January 07, 2021 Assessment & Plan (1) Acute hypoxemic respiratory failure: CT chest 01/06/2021 personally reviewed: Elevated right hemidiaphragm glynn reciated, there is atelectasis of the right lower lobe, minimal emphysema right upper lobe No mediastinal lymphadenopathy 2D echo 01/07/2021: EF 65%, left ventricular hypertrophy, moderate right ventricular hypertrophy, normal right ventricular systolic function ABG 01/06/2021: 7.24/84/120 --Acute hypercapnic hypoxic respiratory failure No infiltrate appreciated on the CT chest. No PE. Atelectasis of the right lower lobe COVID-19 PCR negative, influenza A/B negative Procalcitonin negative Patient's hypercapnia seems to be coming from OHS possibly looking at the bicarb being 38 as well as chronic elevation of the right hemidiaphragm with atelectasis leading to increased space Etiology for hypoxia is quite unclear right now Patient did have a 2D echo done which showed good ejection fraction. Continue with O2 supplementation to keep oxygen saturation between 88-92% Do not over oxygenate the patient as his central drive will go down. Continue with BiPAP nightly and as needed shortness of breath Patient does have history of alcoholism but there is no lab signs of cirrhosis. I do not think portal pulmonary hypertension is playing a role here. --Probable ASHELY/OHS Patient is polysomnography to be done as an outpatient --Elevated hemidiaphragm Etiology is unclear Patient denies any history of surgery in the past Patient is only 55 years old I think diaphragmatic plication should be thought of Outpatient follow-up with a CT surgeon would be recommended --Ex-smoker Greater than [id number] smoking history Quit at the age of 46 We will give the patient Incruse to be used on a daily basis. Plan: Continue with incentive spirometry BiPAP nightly and as needed shortness of breath O2 supplementation to keep oxygen saturation between 88-92%. Over oxygenation will lead to central apneas. Recommend to avoid it. Patient did have a 2D echo but I am not sure if it was bubble study. Would recommend bubble study to make sure there is no PFO. Please note the above document was generated using voice recognition software. It may contain grammatical, syntax or spelling errors.Any formal questions or concerns about the content, text or information contained within the body of this dictation should be directly addressed to the provider for clarification. (2) Elevated hemidiaphragm: (3) Acute respiratory failure with hypercapnia: History of Present Illness Attending Physician: Dominick West MD History of Present Illness 55-year-old male past medical history of alcoholism, sober for 3 years, anxiety, Nunez's esophagus presented to the hospital because of hypoxia Pulmonary consulted because of hypoxia. Please make note patient is slow to respond but responds all the questions appropriately. At the time of examination patient states that he is feeling better compared to when he came to the hospital. Still is having hard time breathing. Denies any chest pain. Denies any cough. No headache, no blurry vision No dysuria, no diarrhea. No night sweats, no weight loss. No fever or chills. Patient has gained some weight in the last couple of months. Social history: [id number] smoking history quit approximately at the age of 46. Used to be heavy drinker. Quit 3 years ago. Allergies Allergy/AdvReac Type Severity Reaction Status Date / Time No Known Allergies Allergy Mild Unverified 01/06/21 11:15 Home Medications Medication Instructions Recorded Confirmed Type folic acid 1 mg PO QAM 10/25/19 01/06/21 History gabapentin 100 mg PO BID PRN 10/25/19 01/06/21 History metoprolol succinate 12.5 mg PO QAM 10/25/19 01/06/21 History mirtazapine 30 mg PO HS 10/25/19 01/06/21 History pantoprazole 40 mg PO QAM 10/25/19 01/06/21 History risperidone 0.25 mg PO HS 10/25/19 01/06/21 History thiamine HCl (vitamin B1) 100 mg PO QAM 10/25/19 01/06/21 History melatonin 10 mg PO HS 01/06/21 01/06/21 History multivitamin 1 tab PO DAILY 01/06/21 01/06/21 History Patient History Medical History (Updated 01/07/21 @ 15:05 by Brenna Valencia MD) Alcohol withdrawal seizure Alcoholic encephalopathy Anxiety Nunez esophagus History of cardiomyopathy HTN (hypertension) Osteoarthritis Unspecified episodic mood disorder Surgical History (Updated 01/06/21 @ 14:25 by Raven Guevara PA-C) H/O endoscopy [place] teeth removed Family History Father Coronary heart disease [place] in 80's Other Cancer Social History Smoking Status: Former smoker Hx Alcohol Use: No (Former alcoholic. Last drink 2016) Hx Substance Use: No Preferred Language: Greenlandic Communication Ability: Effective Design Project Manager Required: No Beliefs That Will Affect Care: None marital status: Current Living Situation: Spouse Other Information That Helps Us Care for You: No Feels Safe at Home: Yes Safety Concerns: Feels Safe At This Time Assistive Devices: None Review of Systems Review of Systems: All systems reviewed & are unremarkable except as noted in HPI & below Physical Exam Physical Exam: Constitutional: No acute distress HEENT: EOMI, PERRLA Respiratory system: Decreased air entry on the right side, no wheeze, no rhonchi, mild crackles bilateral lower lobes CVS: S1-S2 positive, no murmurs or gallops Abdomen: Soft, nontender, nondistended, positive bowel sounds x4, obese Extremities: +2 pulses bilaterally radialis/ dorsalis pedis, no cyanosis, no ed abdiel Neuro: Awake alert oriented x3 Psych: Normal mood and affect G/U: No Barr Skin: no rashes, warm and dry Lymphatic: no cervical or axillary lymphadenopathy Results & Data Results & Data ([facility]) Vital Signs (Past 12 Hours) Vital Signs Temp Pulse Pulse Resp BP BP Pulse Ox 01/07/21 11:43 36.8 C 103 H 18 112/66 93 01/07/21 09:39 122 H 01/07/21 07:10 37.3 C 117 H 19 118/71 93 01/07/21 04:35 36.8 C 112 H 18 114/73 97 01/07/21 06:23 01/07/21 06:23 PG Care Time/CCT Total # of Minutes Spent Total Time Spent with Patient: Total time spent is greater than 50% in coordination of care (as documented) at patient's floor/unit and/or counseling patient: Coding Level of Care Code 52298 Inpt Consult Level 4 Diagnoses Acute hypoxemic respiratory failure J96.01 Elevated hemidiaphragm J98.6 Acute respiratory failure with hypercapnia J96.02
[2021-01-07] MEDS: UMECLIDINIUM BROMIDE 62.5MCG/BLISTER 7 PUFFS/INHALER INH SCH (15:42)
[2021-01-07] MEDS: MIRTAZAPINE TAB 15 MG TAB PO SCH (21:06)
[2021-01-07] MEDS: risperiDONE 0.5 MG TABLET PO SCH (21:06)
[2021-01-07] MEDS: MELATONIN 3 MG TAB PO SCH (21:06)
[2021-01-08] MEDS: UMECLIDINIUM BROMIDE 62.5MCG/BLISTER 7 PUFFS/INHALER INH SCH (08:59)
[2021-01-08] MEDS: FOLIC ACID 1 MG TAB PO SCH (08:59)
[2021-01-08] MEDS: MULTIVITAMIN TAB PO SCH (09:00)
[2021-01-08] MEDS: PANTOprazole 40 MG TAB PO SCH (09:00)
[2021-01-08] MEDS: THIAMINE HCL 100 MG TAB PO SCH (09:00)
[2021-01-08] MEDS: METOPROLOL SUCC 25MG EXT REL TAB PO SCH (09:00)
[2021-01-08] MEDS: GABAPENTIN 100 MG CAP PO PRN (09:48)
--- NOTE | 2021-01-08 17:32 | Pulmonology Progress Note ---
Date of Service January 08, 2021 Assessment & Plan (1) Acute hypoxemic respiratory failure: CT chest 01/06/2021 personally reviewed: Elevated right hemidiaphragm appreci ated, there is atelectasis of the right lower lobe, minimal emphysema right upper lobe No mediastinal lymphadenopathy 2D echo 01/07/2021: EF 65%, left ventricular hypertrophy, moderate right ventricular hypertrophy, normal right ventricular systolic function ABG 01/06/2021: 7.24/84/120 --Acute hypercapnic hypoxic respiratory failure No infiltrate appreciated on the CT chest. No PE. Atelectasis of the right lower lobe COVID-19 PCR negative, influenza A/B negative Procalcitonin negative Patient's hypercapnia seems to be coming from OHS possibly looking at the bicarb being 38 as well as chronic elevation of the right hemidiaphragm with atelectasis leading to increased space Etiology for hypoxia is quite unclear right now Patient did have a 2D echo done which showed good ejection fraction. Continue with O2 supplementation to keep oxygen saturation between 88-92% Do not over oxygenate the patient as his central drive will go down. Continue with BiPAP nightly and as needed shortness of breath Patient does have history of alcoholism but there is no lab signs of cirrhosis. I do not think portal pulmonary hypertension is playing a role here. --Probable ASHELY/OHS Patient is polysomnography to be done as an outpatient --Elevated hemidiaphragm Etiology is unclear Patient denies any history of surgery in the past Patient is only 55 years old I think diaphragmatic plication should be thought of Outpatient follow-up with a CT surgeon would be recommended --Ex-smoker Greater than [id number] smoking history Quit at the age of 46 We will give the patient Incruse to be used on a daily basis. Plan: Continue with incentive spirometry BiPAP nightly and as needed shortness of breath O2 supplementation to keep oxygen saturation between 88-92%. Over oxygenation will lead to central apneas. Recommend to avoid it. Patient did have a 2D echo but I am not sure if it was bubble study. Would recommend bubble study to make sure there is no PFO. Case was discussed with Dr. Plascencia. We will need to stop to see if the patient is oxygen at home. Outpatient polysomnography is recommended. No further recommendation from pulmonary perspective. Call with any questions. Please note the above document was generated using voice recognition software. It may contain grammatical, syntax or spelling errors.Any formal questions or concerns about the content, text or information contained within the body of this dictation should be directly addressed to the provider for clarification. (2) Elevated hemidiaphragm: (3) Acute respiratory failure with hypercapnia: Admission and Anticipated Discharge Date Admission Date: January 06, 2021 Subjective Patient seen and examined at bedside. No acute distress. Patient uses a mask at night. Neck because of the short-term memory loss of the patient has is not able to answer questions about what he did. He says that he has been using incentive spirometry but not that frequently. I showed him how to use it personally. Denies any chest pain, no headache, no nausea, no vomiting. Did complain of difficulty swallowing steak. No cough. Review of Systems Review of Systems: All systems reviewed & are unremarkable except as noted in Subjective Physical Exam Physical Exam: Constitutional: No acute distress HEENT: EOMI, PERRLA Respiratory system: Decreased air entry on the right side, no wheeze, no rhonchi, positive crackles bilateral lower lobes CVS: S1-S2 positive, no murmurs or gallops Abdomen: Soft, nontender, nondistended, positive bowel sounds x4, obese Extremities: +2 pulses bilaterally radialis/ dorsalis pedis, no cyanosis, no edema Neuro: Awake alert oriented x3 Psych: Normal mood and affect G/U: No Barr Skin: no rashes, warm and dry Lymphatic: no cervical or axillary lymphadenopathy Results & Data Results & Data ([facility]) Vital Signs (Past 12 Hours) Vital Signs Temp Pulse Pulse Resp BP Pulse Ox 01/08/21 15:42 37.1 C 90 19 149/89 H 93 01/08/21 12:00 36.8 C 88 18 163/93 H 92 01/08/21 08:00 94 H 01/08/21 07:59 37.2 C 97 H 18 148/89 H 92 01/08/21 06:09 37.0 C 100 H 19 136/83 93 01/07/21 06:23 01/07/21 06:23 PG Care Time/CCT Total # of Minutes Spent Total Time Spent with Patient: Total time spent is greater than 50% in coordination of care (as documented) at patient's floor/unit and/or counseling patient: Coding Level of Care Code 08298 Subseq Hosp Care Lvl 3 Diagnoses Acute hypoxemic respiratory failure J96.01 Elevated hemidiaphragm J98.6 Acute respiratory failure with hypercapnia J96.02
--- NOTE | 2021-01-08 18:48 | Hospitalist Progress Note ---
Date of Service January 08, 2021 Assessment & Plan (1) Hypoxia: Patient is a 55 yr male with H/O Alcoholism, sober for over 3 years, alcoholic encephalopathy, anxiety, HTN, Barretts esophagus, RML nodule, prior smoker, presented to ER for progressive dyspnea on exertion x 1.5 months and noted hypoxia with ambulation in clinic on the day of admission. Acute hypoxic/hypercapnic respiratory failure Likely multifactorial secondary to elevated hemidiaphragm, OHS, atelectasis -Chest CTA:No pulmonary emboli identified although segmental and subsegmental pulmonary arteries suboptimally assessed due to respiratory motion. No acute process within the chest. Stable moderate elevation of the right hemidiaphragm with associated right middle lobe and right lower lobe segmental atelectasis. -ECHO: EF 65 to 70%. Borderline concentric LVH. No regional wall motion abnormality. Moderate right ventricular hypertrophy. No significant valvular disease. No ASD detected. -Negative COVID Screen Appreciate Pulmonology Input Titrate oxygen to keep saturations between 88 to 92% Continue BiPAP nightly and as needed Needs polysomnography as outpatient Incentive spirometry Needs 2 Step prior to discharge Outpatient CT surgery evaluation (2) Tachycardia: Sinus tachycardia Continue metoprolol Monitor (3) Hyponatremia: Chronic hyponatremia Sodium levels 135 Monitor (4) HTN (hypertension): Stable Continue metoprolol (5) Alcoholic encephalopathy: Prior alcoholic and h/o withdrawal seizures. Chronic memory loss. No reported alcohol since 2017. Reorient frequently (6) Anxiety: Continue Risperdal, Remeron, gabapentin (7) Nunez esophagus: Continue PPI Speech eval requested Aspiration precautions DVT Px Lovenox SQ Admission and Anticipated Discharge Date Admission Date: January 06, 2021 Subjective Patient is seen and examined bedside States having chronic dysphagia which he attributes to Nunez's esophagus Denies odynophagia History limited secondary to short-term memory issues Discussed with pulmonology today Patient denies chest pain, dyspnea, dizziness, nausea, abdominal pain Offers no other complaints Review of Systems Review of Systems: All systems reviewed & are unremarkable except as noted in HPI & below Physical Exam Physical Exam: Physical Exam: Vitals signs as noted above General Appearance:Moderately built and nourished, no apparent distress Head: normocephalic, Atraumatic Eyes: normal inspection, EOMI Neck: supple, Trachea midline Respiratory/Chest: Decreased R breath sounds, scattered crackles Cardiovascular: S1, S2, No murmur Abdomen/GI:Soft, Non tender, Bowel sounds present Extremities/Musculoskeletal:normal inspection, no edema Neurologic/Psych:AAOX3, grossly no focal neurological deficits Skin: normal color, warm Results & Data Results & Data ([facility]) Vital Signs (Past 12 Hours) Vital Signs Temp Pulse Pulse Resp BP Pulse Ox 01/08/21 15:42 37.1 C 90 19 149/89 H 93 01/08/21 12:00 36.8 C 88 18 163/93 H 92 01/08/21 08:00 94 H 01/08/21 07:59 37.2 C 97 H 18 148/89 H 92
[2021-01-08] MEDS: risperiDONE 0.5 MG TABLET PO SCH (20:19)
[2021-01-08] MEDS: MIRTAZAPINE TAB 15 MG TAB PO SCH (20:19)
[2021-01-08] MEDS: MELATONIN 3 MG TAB PO SCH (20:23)
[2021-01-09 06:42] LABS: Hematocrit (blood only) 44.5 % (42-52); Hemoglobin 14.6 g/dL (14.0-18.0); Mean Corpuscular Hemoglobin 29.3 pg (25-34); Mean Corpuscular Hgb Conc 32.8 g/dL (32-36); Mean Corpuscular Volume 89.2 fL (80-100); Mean Platelet Volume 9.4 fL (7.4-10.4); Platelet Count 239 K/uL (130-400); RDW Coefficient of Variation 12.2 % (11.5-14.5); RDW Standard Deviation 39.5 fL (36.4-46.3); Red Blood Count 4.99 M/uL (4.7-6.1); White Blood Count 6.93 K/uL (4.8-10.8)
[2021-01-09 07:44] LABS: BUN Creatinine Ratio 9.6 (10-20); Calcium 8.4 mg/dl (8.5-10.1)
[2021-01-09] MEDS: METOPROLOL SUCC 25MG EXT REL TAB PO SCH (08:21)
[2021-01-09] MEDS: PANTOprazole 40 MG TAB PO SCH (08:21)
[2021-01-09] MEDS: MULTIVITAMIN TAB PO SCH (08:21)
[2021-01-09] MEDS: THIAMINE HCL 100 MG TAB PO SCH (08:22)
[2021-01-09] MEDS: GABAPENTIN 100 MG CAP PO PRN ×2 (08:22→16:57)
[2021-01-09] MEDS: ENOXAPARIN INJ 40 MG/0.4 ML SYR SQ SCH (08:22)
[2021-01-09] MEDS: FOLIC ACID 1 MG TAB PO SCH (08:22)
[2021-01-09] MEDS: UMECLIDINIUM BROMIDE 62.5MCG/BLISTER 7 PUFFS/INHALER INH SCH (08:23)
[2021-01-09 08:32] LABS: Magnesium 1.9 mg/dl (1.8-2.4)
[2021-01-09] MEDS ORDERED: ONDANSETRON INJ 2 MG/ML 2 ML VIAL IV ONE (17:04)
[2021-01-09] MEDS ORDERED: ONDANSETRON INJ 2 MG/ML 2 ML VIAL ONE (17:05)
--- NOTE | 2021-01-09 19:36 | Hospitalist Progress Note ---
Date of Service January 09, 2021 Assessment & Plan (1) Hypoxia: Patient is a 55 yr male with H/O Alcoholism, sober for over 3 years, alcoholic encephalopathy, anxiety, HTN, Barretts esophagus, RML nodule, prior smoker, presented to ER for progressive dyspnea on exertion x 1.5 months and noted hypoxia with ambulation in clinic on the day of admission. Acute hypoxic/hypercapnic respiratory failure Likely multifactorial secondary to elevated hemidiaphragm, OHS, atelectasis -Chest CTA:No pulmonary emboli identified although segmental and subsegmental pulmonary arteries suboptimally assessed due to respiratory motion. No acute process within the chest. Stable moderate elevation of the right hemidiaphragm with associated right middle lobe and right lower lobe segmental atelectasis. -ECHO: EF 65 to 70%. Borderline concentric LVH. No regional wall motion abnormality. Moderate right ventricular hypertrophy. No significant valvular disease. No ASD detected. -Negative COVID Screen Appreciate Pulmonology Input Titrate oxygen to keep saturations between 88 to 92% Continue BiPAP nightly and as needed Needs polysomnography as outpatient Incentive spirometry Needs 2 Step prior to discharge Outpatient CT surgery evaluation We will obtain nocturnal pulse oximetry and get ABG in the morning Titrate off of oxygen as able (2) Tachycardia: Sinus tachycardia Continue metoprolol Monitor (3) Hyponatremia: Chronic hyponatremia Sodium levels 135 Monitor (4) HTN (hypertension): Stable Continue metoprolol (5) Alcoholic encephalopathy: Prior alcoholic and h/o withdrawal seizures. Chronic memory loss. No reported alcohol since 2017. Reorient frequently (6) Anxiety: Continue Risperdal, Remeron, gabapentin (7) Nunez esophagus: Continue PPI Speech eval requested Aspiration precautions DVT Px Lovenox SQ Admission and Anticipated Discharge Date Admission Date: January 06, 2021 Subjective Patient is seen and examined bedside Updated patient's over the phone History unreliable given short-term memory issues No new complaints Requiring minimal supplemental oxygen to maintain saturations Patient denies chest pain, dyspnea, dizziness, nausea, abdominal pain Offers no other complaints Review of Systems Review of Systems: All systems reviewed & are unremarkable except as noted in HPI & below Physical Exam Physical Exam: Physical Exam: Vitals signs as noted above General Appearance:Moderately built and nourished, no apparent distress Head: normocephalic, Atraumatic Eyes: normal inspection, EOMI Neck: supple, Trachea midline Respiratory/Chest: Decreased R breath sounds, CTA Cardiovascular: S1, S2, No murmur Abdomen/GI:Soft, Non tender, Bowel sounds present Extremities/Musculoskeletal:normal inspection, no edema Neurologic/Psych:AAOX3, grossly no focal neurological deficits Skin: normal color, warm Results & Data Results & Data ([facility]) Vital Signs (Past 12 Hours) Vital Signs Temp Pulse Pulse Resp BP Pulse Ox 01/09/21 19:00 36.9 C 94 H 18 130/80 93 01/09/21 16:00 36.9 C 86 20 134/84 93 01/09/21 15:00 91 H 01/09/21 12:00 36.7 C 89 18 143/93 H 93 01/09/21 07:35 37 C 99 H 18 147/94 H 94 Laboratory Results Short CBC 01/09/21 Range/Units 06:28 WBC 6.93 (4.8-10.8) K/uL Hgb 14.6 (14.0-18.0) g/dL Hct 44.5 (42-52) % Plt Count 239 (130-400) K/uL BMP 01/09/21 01/09/21 06:28 07:48 Sodium 133 L Potassium 4.0 Chloride 95 L Carbon Dioxide 38 H BUN 5 L Creatinine 0.54 L Glucose 99 Calcium 8.4 L
[2021-01-09] MEDS: MIRTAZAPINE TAB 15 MG TAB PO SCH (20:09)
[2021-01-09] MEDS: risperiDONE 0.5 MG TABLET PO SCH (20:09)
[2021-01-09] MEDS: MELATONIN 3 MG TAB PO SCH (20:09)
[2021-01-10] MEDS: ACETAMINOPHEN 325 MG TAB PO PRN (03:10)
[2021-01-10 06:56] LABS: Base Excess ABG 9.7 mEq/L (-9-1.8); HCO3 ABG 40 mmol/L (19-24); PCO2 ABG 80 mmHg (35-46); PO2 ABG 66 mmHg (80-95); pH ABG 7.31 (7.35-7.45)
[2021-01-10 06:57] LABS: Allen Test Pos (Pos)
[2021-01-10 07:16] LABS: BUN Creatinine Ratio 7.5 (10-20); Calcium 8.2 mg/dl (8.5-10.1); Creatinine Clr Calc Pharmacy 122.4 ml/min; Est GFR (African American) 132.1
[2021-01-10] MEDS: MULTIVITAMIN TAB PO SCH (09:23)
[2021-01-10] MEDS: METOPROLOL SUCC 25MG EXT REL TAB PO SCH (09:23)
[2021-01-10] MEDS: PANTOprazole 40 MG TAB PO SCH (09:24)
[2021-01-10] MEDS: FOLIC ACID 1 MG TAB PO SCH (09:24)
[2021-01-10] MEDS: UMECLIDINIUM BROMIDE 62.5MCG/BLISTER 7 PUFFS/INHALER INH SCH (09:25)
[2021-01-10] MEDS: ENOXAPARIN INJ 40 MG/0.4 ML SYR SQ SCH (09:25)
[2021-01-10] MEDS: THIAMINE HCL 100 MG TAB PO SCH (09:25)
--- NOTE | 2021-01-10 11:59 | Pulmonology Progress Note ---
Date of Service January 10, 2021 Assessment & Plan (1) Acute hypoxemic respiratory failure: CT chest 01/06/2021 personally reviewed: Elevated right hemidiaphragm appreci ated, there is atelectasis of the right lower lobe, minimal emphysema right upper lobe No mediastinal lymphadenopathy 2D echo 01/07/2021: EF 65%, left ventricular hypertrophy, moderate right ventricular hypertrophy, normal right ventricular systolic function ABG 01/06/2021: 7.24/84/120 --Acute hypercapnic hypoxic respiratory failure No infiltrate appreciated on the CT chest. No PE. Atelectasis of the right lower lobe COVID-19 PCR negative, influenza A/B negative Procalcitonin negative Patient's hypercapnia seems to be coming from OHS possibly looking at the bicarb being 38 as well as chronic elevation of the right hemidiaphragm with atelectasis leading to increased space Etiology for hypoxia is quite unclear right now Patient did have a 2D echo done which showed good ejection fraction. Continue with O2 supplementation to keep oxygen saturation between 88-92% Do not over oxygenate the patient as his central drive will go down. Continue with BiPAP nightly and as needed shortness of breath Patient does have history of alcoholism but there is no lab signs of cirrhosis. I do not think portal pulmonary hypertension is playing a role here. --Probable ASHELY/OHS Patient is polysomnography to be done as an outpatient --Elevated hemidiaphragm Etiology is unclear Patient denies any history of surgery in the past Patient is only 55 years old I think diaphragmatic plication should be thought of Outpatient follow-up with a CT surgeon would be recommended --Ex-smoker with likely COPD Greater than [id number] smoking history Quit at the age of 46 Incruse on a daily basis --Restrictive lung disease Likely secondary to elevated hemidiaphragm Bedside spirometry FEV1: 1.96 L, 30% predicted, FVC 1.18 L, 29% predicted, FEV1/FVC 81% predicted But the flow volume loop and the FVC being only 29% predicted ghost was severe restrictive disease. Patient will need full PFTs as an outpatient. Plan: Patient had nocturnal pulse oximetry done which showed lowest O2 saturation of 41% Even though patient is using BiPAP at night patient ABG still shows persistent hypercapnia Patient will be a candidate for BiPAP/AVAPS device. Due to chronic respiratory failure consequent to severe restrictive lung disease, patient now requires a noninvasive home ventilator. Bilevel therapy with and without a rate would be ineffective as patient requires a volume targeted mode. Ventilation is required to decrease work of breathing and improve pulmonary status. Interruption of ventilator support would lead to decline of health status. NIMV settings should be AVAPS-AE; Breath rate: auto; Inspiratory time:auto; Sigh: off; Tidal Volume: 350-450, PS min: 4-10 PS max: 12-20; EPAP min: 6-10; EPAP max: 10-16; AVAPS rate: 14 during sleep and as needed Please note the above document was generated using voice recognition software. It may contain grammatical, syntax or spelling errors.Any formal questions or concerns about the content, text or information contained within the body of this dictation should be directly addressed to the provider for clarification. (2) Elevated hemidiaphragm: (3) Acute respiratory failure with hypercapnia: (4) Restrictive lung disease: Admission and Anticipated Discharge Date Admission Date: January 06, 2021 Subjective Patient seen and examined at bedside. No acute distress, no adverse events overnight. Patient said he is feeling better. Denies any chest pain, shortness of breath is improved. Denies any headache, no nausea, no vomiting. Good appetite. Review of Systems Review of Systems: All systems reviewed & are unremarkable except as noted in Subjective Physical Exam Physical Exam: Constitutional: No acute distress HEENT: EOMI, PERRLA Respiratory system: Decreased air entry on the right side, no wheeze, no rhonchi, positive crackles bilateral lower lobes CVS: S1-S2 positive, no murmurs or gallops Abdomen: Soft, nontender, nondistended, positive bowel sounds x4, obese Extremities: +2 pulses bilaterally radialis/ dorsalis pedis, no cyanosis, no edema Neuro: Awake alert oriented x3 Psych: Normal mood and affect G/U: No Barr Skin: no rashes, warm and dry Lymphatic: no cervical or axillary lymphadenopathy Results & Data Results & Data ([facility]) Vital Signs (Past 12 Hours) Vital Signs Temp Pulse Pulse Pulse Pulse Pulse Resp 01/10/21 08:29 36.4 C L 86 20 01/10/21 08:00 89 104 H 96 H 91 H 01/10/21 04:47 36.9 C 94 H 18 01/10/21 02:19 101 H 01/10/21 00:15 36.8 C 92 H 18 Resp Resp Resp Resp BP Pulse Ox Pulse Ox 01/10/21 08:29 155/92 H 96 01/10/21 08:00 18 20 18 18 94 01/10/21 04:47 131/74 96 01/10/21 02:19 01/10/21 00:15 130/77 95 Pulse Ox Pulse Ox Pulse Ox 01/10/21 08:29 01/10/21 08:00 90 93 86 L 01/10/21 04:47 01/10/21 02:19 95 01/10/21 00:15 01/09/21 06:28 01/10/21 06:29 PG Care Time/CCT Total # of Minutes Spent Total Time Spent with Patient: Total time spent is greater than 50% in coordination of care (as documented) at patient's floor/unit and/or counseling patient: Coding Level of Care Code 24020 Subseq Hosp Care Lvl 3 Diagnoses Acute hypoxemic respiratory failure J96.01 Elevated hemidiaphragm J98.6 Acute respiratory failure with hypercapnia J96.02 Restrictive lung disease J98.4
--- NOTE | 2021-01-10 14:48 | Hospitalist Progress Note ---
Date of Service January 10, 2021 Assessment & Plan (1) Hypoxia: Patient is a 55 yr male with H/O Alcoholism, sober for over 3 years, alcoholic encephalopathy, anxiety, HTN, Barretts esophagus, RML nodule, prior smoker, presented to ER for progressive dyspnea on exertion x 1.5 months and noted hypoxia with ambulation in clinic on the day of admission. Acute hypoxic/hypercapnic respiratory failure Likely multifactorial secondary to elevated hemidiaphragm, OHS, atelectasis -Chest CTA:No pulmonary emboli identified although segmental and subsegmental pulmonary arteries suboptimally assessed due to respiratory motion. No acute process within the chest. Stable moderate elevation of the right hemidiaphragm with associated right middle lobe and right lower lobe segmental atelectasis. -ECHO: EF 65 to 70%. Borderline concentric LVH. No regional wall motion abnormality. Moderate right ventricular hypertrophy. No significant valvular disease. No ASD detected. -Negative COVID Screen Appreciate Pulmonology Input Titrate oxygen to keep saturations between 88 to 92% Continue BiPAP nightly and as needed Needs polysomnography as outpatient Incentive spirometry Outpatient CT surgery evaluation 2 Step: Needs 2 liters of supplemental oxygen with rest and with activity ABG: Hypercarbia 81 mmHg while on 2 L supplemental oxygen Nocturnal Pulse Oximetry: Qualifies for supplemental oxygen with sats less than 88% for about 48 minutes and 59 seconds Patient is a candidate for BiPAP/AVAPS device to be arranged prior to discharge (2) Tachycardia: Sinus tachycardia Continue metoprolol Monitor (3) Hyponatremia: Chronic hyponatremia Sodium levels 135>131 Monitor Liberalize salt in diet (4) HTN (hypertension): Stable Continue metoprolol (5) Alcoholic encephalopathy: Prior alcoholic and h/o withdrawal seizures. Chronic memory loss. No reported alcohol since 2017. Reorient frequently (6) Anxiety: Continue Risperdal, Remeron, gabapentin (7) Nunez esophagus: Continue PPI Speech eval requested Aspiration precautions DVT Px Lovenox SQ Admission and Anticipated Discharge Date Admission Date: January 06, 2021 Subjective Patient is seen and examined bedside No new complaints Discussed with pulmonology today Updated patient's over the phone History unreliable given short-term memory issues Denies chest pain, dyspnea, dizziness, nausea, abdominal pain Review of Systems Review of Systems: All systems reviewed & are unremarkable except as noted in HPI & below Physical Exam Physical Exam: Physical Exam: Vitals signs as noted above General Appearance:Moderately built and nourished, no apparent distress Head: normocephalic, Atraumatic Eyes: normal inspection, EOMI Neck: supple, Trachea midline Respiratory/Chest: Decreased R breath sounds, CTA Cardiovascular: S1, S2, No murmur Abdomen/GI:Soft, Non tender, Bowel sounds present Extremities/Musculoskeletal:normal inspection, no edema Neurologic/Psych:AAOX3, grossly no focal neurological deficits Skin: normal color, warm Results & Data Results & Data ([facility]) Vital Signs (Past 12 Hours) Vital Signs Temp Pulse Pulse Pulse Pulse Pulse Resp 01/10/21 12:26 36.5 C 85 20 01/10/21 08:29 36.4 C L 86 20 01/10/21 08:00 89 104 H 96 H 91 H 01/10/21 04:47 36.9 C 94 H 18 Resp Resp Resp Resp BP Pulse Ox Pulse Ox 01/10/21 12:26 159/98 H 96 01/10/21 08:29 155/92 H 96 01/10/21 08:00 18 20 18 18 94 01/10/21 04:47 131/74 96 Pulse Ox Pulse Ox Pulse Ox 01/10/21 12:26 01/10/21 08:29 01/10/21 08:00 90 93 86 L 01/10/21 04:47 Laboratory Results BMP 01/10/21 06:29 Sodium 131 L Potassium 4.0 Chloride 92 L Carbon Dioxide 37 H BUN 4 L Creatinine 0.60 Glucose 119 H Calcium 8.2 L
[2021-01-10] MEDS: MELATONIN 3 MG TAB PO SCH (20:45)
[2021-01-10] MEDS: risperiDONE 0.5 MG TABLET PO SCH (20:45)
[2021-01-10] MEDS: MIRTAZAPINE TAB 15 MG TAB PO SCH (20:45)
[2021-01-11] MEDS: THIAMINE HCL 100 MG TAB PO SCH (07:39)
[2021-01-11] MEDS: GABAPENTIN 100 MG CAP PO PRN (07:40)
[2021-01-11] MEDS: PANTOprazole 40 MG TAB PO SCH (07:49)
[2021-01-11] MEDS: MULTIVITAMIN TAB PO SCH (07:49)
[2021-01-11] MEDS: METOPROLOL SUCC 25MG EXT REL TAB PO SCH (07:50)
[2021-01-11] MEDS: FOLIC ACID 1 MG TAB PO SCH (07:50)
[2021-01-11] MEDS: ENOXAPARIN INJ 40 MG/0.4 ML SYR SQ SCH (07:50)
[2021-01-11] MEDS: UMECLIDINIUM BROMIDE 62.5MCG/BLISTER 7 PUFFS/INHALER INH SCH (07:50)
[2021-01-11 08:15] LABS: BUN Creatinine Ratio 8.3 (10-20); Calcium 9.2 mg/dl (8.5-10.1); Creatinine Clr Calc Pharmacy 138.6 ml/min; Potassium 3.8 mmol/L (3.5-5.1)
--- NOTE | 2021-01-11 13:38 | Hospitalist Progress Note ---
Date of Service January 11, 2021 Assessment & Plan (1) Hypoxia: Patient is a 55 yr male with H/O Alcoholism, sober for over 3 years, alcoholic encephalopathy, anxiety, HTN, Barretts esophagus, RML nodule, prior smoker, presented to ER for progressive dyspnea on exertion x 1.5 months and noted hypoxia with ambulation in clinic on the day of admission. Acute hypoxic/hypercapnic respiratory failure Likely multifactorial secondary to elevated hemidiaphragm, OHS, atelectasis -Chest CTA:No pulmonary emboli identified although segmental and subsegmental pulmonary arteries suboptimally assessed due to respiratory motion. No acute process within the chest. Stable moderate elevation of the right hemidiaphragm with associated right middle lobe and right lower lobe segmental atelectasis. -ECHO: EF 65 to 70%. Borderline concentric LVH. No regional wall motion abnormality. Moderate right ventricular hypertrophy. No significant valvular disease. No ASD detected. -Negative COVID Screen Appreciate Pulmonology Input Titrate oxygen to keep saturations between 88 to 92% Continue BiPAP at bedtime Needs polysomnography as outpatient Incentive spirometry Outpatient CT surgery evaluation 2 Step: Needs 2 liters of supplemental oxygen with rest and with activity ABG: Hypercarbia 81 mmHg while on 2 L supplemental oxygen Nocturnal Pulse Oximetry: Qualifies for supplemental oxygen with sats less than 88% for about 48 minutes and 59 seconds Patient is a candidate for BiPAP/AVAPS device but not approved by Insurance Will need Outpatient PFTs upon discharge (2) Tachycardia: Sinus tachycardia Continue metoprolol Monitor (3) Hyponatremia: Chronic hyponatremia Sodium levels 135>131?>132 Monitor Liberalize salt in diet (4) HTN (hypertension): Stable Continue metoprolol (5) Alcoholic encephalopathy: Prior alcoholic and h/o withdrawal seizures. Chronic memory loss. No reported alcohol since 2017. Reorient frequently (6) Anxiety: Continue Risperdal, Remeron, gabapentin (7) Nunez esophagus: Continue PPI Speech eval requested Aspiration precautions DVT Px Lovenox SQ Admission and Anticipated Discharge Date Admission Date: January 06, 2021 Subjective Patient is seen and examined bedside States feeling well No new complaints Insurance company denied BiPAP Chronic short-term memory issues Denies chest pain, dyspnea, dizziness, nausea, abdominal pain Saturating well on 2 L of supplemental oxygen Review of Systems Review of Systems: All systems reviewed & are unremarkable except as noted in HPI & below Physical Exam Physical Exam: Physical Exam: Vitals signs as noted above General Appearance:Moderately built and nourished, no apparent distress Head: normocephalic, Atraumatic Eyes: normal inspection, EOMI Neck: supple, Trachea midline Respiratory/Chest: Decreased R breath sounds, CTA Cardiovascular: S1, S2, No murmur Abdomen/GI:Soft, Non tender, Bowel sounds present Extremities/Musculoskeletal:normal inspection, no edema Neurologic/Psych:AAOX3, grossly no focal neurological deficits Skin: normal color, warm Results & Data Results & Data ([facility]) Vital Signs (Past 12 Hours) Vital Signs Temp Pulse Pulse Resp BP BP Pulse Ox 01/11/21 11:10 36.9 C 78 16 131/82 95 01/11/21 07:45 36.6 C 91 H 20 133/83 93 01/11/21 07:00 94 H 01/11/21 02:29 76 18 95 Laboratory Results [facility] 01/11/21 07:06 Sodium 132 L Potassium 3.8 Chloride 94 L Carbon Dioxide 38 H BUN 4 L Creatinine 0.53 L Glucose 93 Calcium 9.2
--- NOTE | 2021-01-11 13:51 | Discharge Summary ---
Date of Service January 11, 2021 Admission HPI Per Admitting Provider Pt is 55 y/o M with PMH alcoholism, sober for over 3 years, alcoholic encephalopathy, anxiety, HTN, Barretts esophagus, RML nodule, prior smoker, presented to ER from PCP's office for hypoxia. Pt referred from clinic today was found to be tachycardic and oxygen desaturation in to the 70's with ambulation. History obtained from pt and pt's secondary to pt's memory loss. Reports pt with progressive SOB with exertion for past 1.5 months. Today pt bent over and reported some left sided CP that lasted a few seconds and resolved. States had a couple of episodes of fleeting CP with movement over the past several months that lasts a few seconds and self resolves. Denies cough, fever/chills. reports pt had medications today and denies missed doses of medications. Denies fever/chills, diaphoresis, N/V/D/C, GALEANO, dizziness, syncope, vision changes, neck pain, palpitations, sore throat, choking, otalgia, rhinorrhea, abdominal pain, paresthesias, weakness, extremity weakness, extremity edema, rashes, urinary symptoms. Denies h/o COPD, Denies COVID 19 or known COVID 19 exposures. 2019 EKG report: nonspecific T wave abnormality in inferior and anterior leads. Echo: 2017: sinus tachycardia rate 130, limited exam unable to measure LV function, no significant valvular disease History cardiac cath in 2014: widely patent and normal coronary anatomy with normal left ventricular function Admission Exam Per Admitting Provider Physical Exam Physical Exam: General: no distress, WDWN Head: normocephalic, atraumatic Eyes: PERRL, EOM's intact, conjunctiva non-injected, anicteric ENT: normal inspection external ears, nose, mucous membranes moist Neck: supple, trachea midlin Lungs: no respiratory distress at rest on 2L oxygen via NC with sat 98%, diminished breath sounds throughout CV: tachycardia, rate 108, regular rhythm, trace pretibial edema Abd: normal BS, soft, non-tender Ext: no cyanosis, no calf tenderness Neuro: Alert. Oriented to place, person, year. Noted short term memory loss, asks if is going to be admitted to hospital several times throughout exam, no focal deficits noted, flat affect Skin: warm, dry Principal Diagnosis Acute hypoxic/hypercapnic respiratory failure Possible hypoventilation syndrome, obstructive sleep apnea Restrictive lung disease secondary to elevated hemidiaphragm Chronic hyponatremia Chronic dysphagia Discharge Data Allergies Allergy/AdvReac Type Severity Reaction Status Date / Time No Known Allergies Allergy Mild Unverified 01/06/21 11:15 Consultations 01/06/21 13:07 ED Decision to Admit Stat 01/07/21 12:16 Consult Pulmonology Routine Procedures Performed -Chest CTA:No pulmonary emboli identified although segmental and subsegmental pulmonary arteries suboptimally assessed due to respiratory motion. No acute process within the chest. Stable moderate elevation of the right hemidiaphragm with associated right middle lobe and right lower lobe segmental atelectasis. -ECHO: EF 65 to 70%. Borderline concentric LVH. No regional wall motion abnormality. Moderate right ventricular hypertrophy. No significant valvular disease. No ASD detected. Ordered Studies 01/06/21 10:36 CT angio chest PE protocol Stat Hospital Course (1) Hypoxia: Patient is a 55 yr male with H/O Alcoholism, sober for over 3 years, alcoholic encephalopathy, anxiety, HTN, Barretts esophagus, RML nodule, prior smoker, presented to ER for progressive dyspnea on exertion x 1.5 months and noted hypoxia with ambulation in clinic on the day of admission. Acute hypoxic/hypercapnic respiratory failure Likely multifactorial secondary to elevated hemidiaphragm, OHS, atelectasis, ASHELY, Obstructive sleep apnea Restrictive lung disease secondary to elevated hemidiaphragm -Chest CTA:No pulmonary emboli identified although segmental and subsegmental pulmonary arteries suboptimally assessed due to respiratory motion. No acute process within the chest. Stable moderate elevation of the right hemidiaphragm with associated right middle lobe and right lower lobe segmental atelectasis. -ECHO: EF 65 to 70%. Borderline concentric LVH. No regional wall motion abnormality. Moderate right ventricular hypertrophy. No significant valvular disease. No ASD detected. -Negative COVID Screen Appreciate Pulmonology Input Titrate oxygen to keep saturations between 88 to 92% Continue BiPAP at bedtime Needs polysomnography as outpatient Incentive spirometry Outpatient CT surgery evaluation 2 Step: Needs 2 liters of supplemental oxygen with rest and with activity ABG: Hypercarbia 81 mmHg while on 2 L supplemental oxygen Nocturnal Pulse Oximetry: Qualifies for supplemental oxygen with sats less than 88% for about 48 minutes and 59 seconds Patient is a candidate for BiPAP/AVAPS device but not approved by Insurance Will need Outpatient PFTs upon discharge (2) Tachycardia: Sinus tachycardia Continue metoprolol Monitor (3) Hyponatremia: Chronic hyponatremia Sodium levels 135>131?>132 Monitor Liberalize salt in diet (4) HTN (hypertension): Stable Continue metoprolol (5) Alcoholic encephalopathy: Prior alcoholic and h/o withdrawal seizures. Chronic memory loss. No reported alcohol since 2017. Reorient frequently (6) Anxiety: Continue Risperdal, Remeron, gabapentin (7) Nunez esophagus: Continue PPI Speech eval requested Aspiration precautions DVT Px Lovenox SQ Total Time Total Time Spent Total Time Spent (In Minutes): 41 minutes Total Time Includes: Examination of the Patient, Discharge Planning, Medication Reconciliation, Communication With Other Providers and Other Discharge Plan Discharge Items Patient Disposition: Home - Self-Care Reason For Visit: HYPOXIA Discharge Diagnosis: Acute hypoxic/hypercapnic respiratory failure Possible hypoventilation syndrome, obstructive sleep apnea Restrictive lung disease secondary to elevated hemidiaphragm Chronic hyponatremia Chronic dysphagia Activity: Per Instructions section Exercise/Sports: Gradually increase as tolerated Non-emergency contact: Primary Care Provider, Surgeon, Enrolled Nurse and Aquatic Scientist Call non-emergency contact if: you have any medication questions, your symptoms worsen, your pain is not controlled, your pain is concerning for you and you have a fever Follow-up/Referrals: Abhinav Serrano DO [Primary Care Provider] - 01/14/21 11:20 am (Date & Time 01/14/2021 11:20 AM Provider Abhinav Serrano DO Department General Internal Medicine [facility] ) Dietitian Info: Minced and Mosit Diet: Heart Healthy Addtl Attending Provider Instructions: Follow-up with your primary care physician Dr. Abhinav Serrano in 1 week Follow-up with your CT surgeon as recommended for further evaluation of elevated right hemidiaphragm Follow-up with your bottom cager for evaluation of dysphagia and possible need for upper endoscopy Use oxygen 2 L via nasal cannula at rest and with activity Get pulmonary function tests as outpatient as advised. If qualified for BiPAP/AVAPS device, use it at bedtime as recommended by your Pulmnologist Get polysomnography as outpatient and follow-up with your dispatcher chief oil. Use inhaler regularly as prescribed.--As recommended by your dispatcher chief oil. Seek immediate medical attention if your symptoms reoccur or worsen Pending Studies at Discharge: No Stand-Alone Forms: My [facility] [employer], Smoking Cessation Medications and DC Order Prescriptions: New Incruse Ellipta 62.5 mcg/actuation Blister With Device 1 inh inhalation DAILY Qty: 30 RF: 1 Continued thiamine HCl (vitamin B1) 100 mg Tablet 100 mg PO QAM RF: 0 risperidone 0.25 mg Tablet 0.25 mg PO HS RF: 0 pantoprazole 40 mg Tablet,Delayed Release (Dr/Ec) 40 mg PO QAM RF: 0 mirtazapine 30 mg Tablet 30 mg PO HS RF: 0 folic acid 1 mg Tablet 1 mg PO QAM RF: 0 gabapentin 100 mg Capsule 100 mg PO BID PRN (Reason: Anxiety) RF: 0 metoprolol succinate 25 mg Tablet Extended Release 24 Hr 12.5 mg PO QAM RF: 0 multivitamin Tablet 1 tab PO DAILY RF: 0 melatonin 10 mg Tablet 10 mg PO HS RF: 0 Discharge Orders: Discharge Order (Routine); Ordered 01/11/21 Ordered By: Mahamed Plascencia Admission Data Admit Date/Time: 01/06/21 13:18 Attending Provider: Mahamed Plascencia Admit Provider: Dominick West Primary Care Provider: Abhinav Serrano Other Providers: Dominick West ; Brenna Valencia Other Interventions: Discharge Summary Assessment (RN) Last Done: 01/11/21 14:50
== END 2021-01-11 15:20 | disposition home or self-care (01) | DRG 205 ==
LOC: ED 10:21 → SUATTDRO 13:18 → 2S 13:18